=== PATIENT | female | born 1950 | race Asian ===

== ENCOUNTER 2020-03-12 10:19 | Outpatient (REF) | payer MEDICARE, OTHER, SELFPAY ==
[2020-03-12 11:21] LABS: Hematocrit 41.3 % (37-47); Hemoglobin 13.5 g/dl (12.0-16.0); Mean Corpuscular HGB Conc 32.7 g/dl (31.0-35.0); Mean Corpuscular Hemoglobin 29.3 pg (27.0-33.0); Mean Corpuscular Volume 89.8 fL (80-98); Mean Platelet Volume 9.5 fL (9.4-12.3); Platelet Count 406 X10*3/uL (160-400); Red Cell Distribution Width 12.6 % (11.0-16.0); White Blood Count 8.4 X10*3/uL (4.8-10.8)
[2020-03-12 11:37] LABS: Alanine Aminotransferase 9 U/L (0-31); Albumin Level 4.3 g/dL (3.5-5.0); Alkaline Phosphatase 81 U/L (39-117); Anion Gap 12 (12-20); Aspartate Amino Transferase 15 U/L (5-31); Bilirubin Total 0.5 mg/dL (0.0-1.0); Blood Urea Nitrogen 9 mg/dL (9-16); Calcium 9.3 mg/dL (8.4-10.2); Carbon Dioxide 29 mmol/L (22-29); Chloride 104 mmol/L (96-108); Cholesterol 189 mg/dL; Estimated Glomerular Filt Rate > 60; Glucose Fasting 89 mg/dL (60-99); HDL Cholesterol 54 mg/dL; Iron 77 mcg/dL (30-160); LDL Cholesterol Calculated 115 mg/dl; Percent Iron Saturation 24 % (15-50); Potassium 4.5 mmol/l (3.3-5.1); Sodium 140 mmol/L (135-145); Total Iron Binding Capacity 318 mcg/dL (228-428); Total Protein 6.8 g/dL (6.5-8.0); Triglycerides 102 mg/dL; Unsaturated Iron Binding 241 ug/dL
[2020-03-12 11:56] LABS: TSH reflex Free T4 1.95 mIU/mL (0.32-4.0)
== END 2020-03-12 10:20 | disposition home or self-care (01) ==
LOC: HO.HMGCLDS 10:19
PROVIDERS: PCP Internal Medicine; Visit Provider Internal Medicine
DX: E78.5 Hyperlipidemia, unspecified (principal); R53.83 Other fatigue
CPT/HCPCS: 36415; 80053; 80061; 83540; 84443; 85027

== ENCOUNTER 2020-11-05 11:41 | Outpatient (REF) | payer MEDICARE, OTHER, SELFPAY ==
--- NOTE | ~2020-11-05 | MM_ITS ---
EXAMINATION: MM SCREENING DIGITAL BREAST TOMOSYNTHESIS, BILATERAL CLINICAL INFORMATION: Screening. Asymptomatic. Prior outside mammography currently unavailable. Age 70. History left excisional biopsy 1967, benign. The lifetime risk of breast cancer based on the Tyrer-Cuzick Model is 2%. COMPARISON: None. TECHNIQUE: Digital breast tomosynthesis is performed in both the craniocaudal and mediolateral oblique views along with computer-aided detection (CAD). Synthesized 2D images are generated from the tomosynthesis. FINDINGS: There are scattered areas of fibroglandular density (ACR BI-RADS breast composition Category b). There are no significant masses, abnormal calcifications, or other abnormalities. There is a dermal lesion overlying the mid 9:00 left breast. Incidental 3 x 4 mm circumscribed nodule anterior 12:00 left breast has either biopsy clip marker or a benign coarse calcification. The axilla and skin contours are unremarkable. MM/MM tomosynthesis screening BI IMPRESSION: No mammographic evidence of malignancy. ASSESSMENT: BI-RADS 2: Benign RECOMMENDATION: 1. Routine annual mammography screening. 2. Radiology department will attempt to retrieve prior outside mammography to allow for comparison in an addendum report. This patient's information was entered into a reminder system with a target due date for their next mammogram.
== END 2020-11-05 11:42 | disposition home or self-care (01) ==
LOC: HO.MAMMO 11:41
PROVIDERS: PCP Internal Medicine; Visit Provider Internal Medicine
DX: Z12.31 Encounter for screening mammogram for malignant neoplasm of breast (principal)
CPT/HCPCS: 77063; 77067

== ENCOUNTER 2020-11-20 12:55 | Outpatient (REF) | payer MEDICARE, OTHER, SELFPAY ==
--- NOTE | ~2020-11-20 | US_ITS ---
EXAMINATION: US VENOUS ULTRASOUND WITH DOPPLER LOWER EXTREMITY, RIGHT CLINICAL INFORMATION: Pain COMPARISON: None TECHNIQUE: Ultrasound of the deep veins is performed from the hip to the calf with compression sonography and color and pulse Doppler assessment. Spectral analysis with color-flow imaging is performed. FINDINGS: There is normal venous compression and respiratory variation and augmented flow. The visualized common femoral vein, superficial femoral vein, profunda femoral vein, popliteal vein, and the trifurcation region shows no evidence of deep venous thrombosis. There is a 4.4 x 3 x 5.5 cm complex Ramirez's cyst. US/US venous duplex LE RT IMPRESSION: No DVT demonstrated in the right lower extremity. Complex Ramirez's cyst.
== END 2020-11-20 12:56 | disposition home or self-care (01) ==
LOC: HO.HMGCX 12:55
PROVIDERS: PCP Internal Medicine; Visit Provider Nurse Practitioner Family
DX: I82.401 Acute embolism and thrombosis of unspecified deep veins of right lower extremity (principal); M25.561 Pain in right knee
CPT/HCPCS: 93971

== ENCOUNTER 2021-03-21 10:06 | Outpatient (REF) | payer MEDICARE, OTHER, SELFPAY ==
[2021-03-21 11:25] LABS: Hematocrit 40.5 % (37.0-47.0); Mean Corpuscular HGB Conc 32.1 g/dl (31.0-35.0); Mean Corpuscular Hemoglobin 28.7 pg (27.0-33.0); Mean Corpuscular Volume 89.4 fL (80.0-98.0); Mean Platelet Volume 9.3 fL (9.4-12.3); Platelet Count 355 X10*3/uL (160-400); Red Blood Count 4.53 X10*6/uL (4.20-5.50); Red Cell Distribution Width 13.4 % (11.0-16.0); White Blood Count 7.3 X10*3/uL (4.8-10.8)
[2021-03-21 11:56] LABS: Alanine Aminotransferase 12 U/L (0-31); Albumin Level 4.3 g/dL (3.5-5.0); Alkaline Phosphatase 62 U/L (39-117); Anion Gap 13 (12-20); Aspartate Amino Transferase 19 U/L (5-31); Bilirubin Total 0.4 mg/dL (0.0-1.0); Blood Urea Nitrogen 16 mg/dL (9-16); Calcium 9.4 mg/dL (8.4-10.2); Carbon Dioxide 28 mmol/L (22-29); Chloride 104 mmol/L (96-108); Cholesterol 239 mg/dL; Estimated Glomerular Filt Rate > 60; Glucose Fasting 91 mg/dL (60-99); HDL Cholesterol 67 mg/dL; LDL Cholesterol Calculated 157 mg/dl; Potassium 4.3 mmol/L (3.3-5.1); Sodium 141 mmol/L (135-145); Total Protein 6.8 g/dL (6.5-8.0); Triglycerides 79 mg/dL
[2021-03-21 12:08] LABS: TSH reflex Free T4 1.69 uIU/mL (0.32-4.0)
== END 2021-03-21 10:07 | disposition home or self-care (01) ==
LOC: HO.HMGCLDS 10:06
PROVIDERS: PCP Internal Medicine; Visit Provider Internal Medicine
DX: Z00.00 Encounter for general adult medical examination without abnormal findings (principal); E78.5 Hyperlipidemia, unspecified; M48.061 Spinal stenosis, lumbar region without neurogenic claudication
CPT/HCPCS: 36415; 80053; 80061; 84443; 85027

== ENCOUNTER 2022-01-14 11:03 | Outpatient (REF) | payer MEDICARE, OTHER, SELFPAY ==
--- NOTE | ~2022-01-14 | MM_ITS ---
EXAMINATION: MM SCREENING DIGITAL BREAST TOMOSYNTHESIS, BILATERAL CLINICAL INFORMATION: Screening. Asymptomatic. History benign left excisional biopsy, 1966. The lifetime risk of breast cancer based on the Tyrer-Cuzick Model is 2%. COMPARISON: Mammography: 11/05/2020; outside mammography 08/24/2018, 01/24/2016 ([facility], [place], [place]). TECHNIQUE: Digital breast tomosynthesis is performed in both the craniocaudal and mediolateral oblique views along with computer-aided detection (CAD). Synthesized 2D images are generated from the tomosynthesis. FINDINGS: There are scattered areas of fibroglandular density (ACR BI-RADS breast composition Category b). There are no significant masses, abnormal calcifications, or other abnormalities. Parenchymal pattern is similar to prior studies and there is no developing density or architectural abnormality. There are dermal lesions bilateral medial breasts and right mid upper outer breast, marked with dermal markers. The axilla are unremarkable. No significant changes. MM/MM tomosynthesis screening BI IMPRESSION: No mammographic evidence of malignancy. ASSESSMENT: BI-RADS 2: Benign RECOMMENDATION: Routine annual mammography screening. This patient's information was entered into a reminder system with a target due date for their next mammogram.
== END 2022-01-14 11:04 | disposition home or self-care (01) ==
LOC: HO.MAMMO 11:03
PROVIDERS: PCP Internal Medicine; Visit Provider Internal Medicine
DX: Z12.31 Encounter for screening mammogram for malignant neoplasm of breast (principal)
CPT/HCPCS: 77063; 77067

== ENCOUNTER 2022-07-14 16:31 | Outpatient (REF) | payer MEDICARE, OTHER, SELFPAY ==
--- NOTE | ~2022-07-14 | XR_ITS ---
EXAMINATION: CHEST 2 VIEWS CLINICAL INFORMATION: R07.81 - Pleurodynia. COMPARISON: No recent pertinent prior studies are available for comparison. TECHNIQUE: PA and lateral views of the chest obtained. FINDINGS: The lungs are well expanded. Linear scarring or atelectasis seen in the left base. No focal infiltrate, effusion, edema, or pneumothorax. Cardiac and mediastinal silhouettes are within normal limits for technique. Degenerative changes in the spine with cervical spine hardware partially visualized. No acute bony abnormality seen XR/XR chest 2V IMPRESSION: Linear scarring or atelectasis in the left base. No acute process otherwise.
== END 2022-07-14 16:32 | disposition home or self-care (01) ==
LOC: HO.HMGCX 16:31
PROVIDERS: PCP Internal Medicine; Visit Provider Emergency Medicine
DX: R07.81 Pleurodynia (principal)
CPT/HCPCS: 71046

== ENCOUNTER 2022-12-09 15:29 | Outpatient (AMB) | payer MEDICARE, OTHER, SELFPAY ==
--- NOTE | 2022-12-09 16:09 | MHC.OFFWIV ---
Intake Vital Signs 12/09/22 16:10 Weight 120 lb BP 130/80 Blood Pressure Location Lt brachial Position Sitting Pulse 88 Pulse Source Pulse Oximeter Pulse Oximetry (%) 97 Oxygen Delivery Method Room Air Intake Visit Reasons: EP, fatigue, hair loss Intake Note: Patient here because she has been feeling very weak, hair loss for about 2 months. Patient Tobacco Use Status: Former Tobacco user Allergies Sulfa (Sulfonamide Antibiotics) Allergy (Unknown, Verified 12/10/22 06:04) unknown sulfamethoxazole [From Bactrim] Allergy (Unknown, Verified 12/10/22 06:04) unknown trimethoprim [From Bactrim] Allergy (Unknown, Verified 12/10/22 06:04) unknown Medication List - Last Reconciled 12/10/22 by Alan Palacio MD albuterol sulfate 90 mcg/actuation 2 puffs inhalation Q6H PRN benzonatate 100 mg PO BID PRN cefuroxime axetil 250 mg PO BID 7 days codeine-guaifenesin 10-100 mg/5 mL 5 mL PO Q6H PRN cyclobenzaprine 10 mg PO BEDTIME doxycycline hyclate 100 mg PO BID 7 days flu vac 2020 [id number](PF) 60 mcg (15 mcg x 4)/0.5 mL 0.5 mL IM DIRECTED meloxicam (Mobic) 15 mg PO DAILY multivitamin 1 tab PO DAILY nitrofurantoin monohyd/m-cryst 100 mg (Macrobid) 100 mg PO Q12H 3 days pravastatin 20 mg PO DAILY prednisone 40 mg (2 x 20 mg) PO DAILY 5 days Do you need a note to return to daycare/school/sports/work: No HPI EP, fatigue, hair loss HPI Details 72-year-old female presents to the office for a sick visit. Patient has not seen her primary care provider in sometime. She is reporting symptoms of fatigue, hair loss. No change in bowel habits. She has been hypothyroid in the past but has not been taking any medications currently. [facility] Medical History Annual physical exam Fatigue History of mammogram Hyperlipidemia Lumbar spinal stenosis Surgical History H/O colonoscopy S/P cervical spinal fusion Social History Alcohol intake: current Alcohol intake frequency: a few times a week Patient Tobacco Use Status: Former Tobacco user Physical Exam Vital Signs: Last Vital Signs Pulse 88 12/09/22 16:10 BP 130/80 12/09/22 16:10 Pulse Ox 97 12/09/22 16:10 Oxygen Delivery Method Room Air 12/09/22 16:10 Const General: cooperative and healthy appearing Nutritional Appearance: well nourished Orientation/consciousness: patient oriented x3 Limitations: no limitations HEENT Head: Yes normal to inspection Eyes General: appearance normal, both eyes and all related structures Neck Neck: Yes normal visual inspection Chest Chest palpation & inspection: normal palpation of entire chest wall Resp Effort & Inspection: normal respiratory effort Neuro General: patient oriented x3 Assessment & Plan Assessment & Plan (1) Fatigue: Code(s): R53.83 - Other fatigue Plan: Blood work has been ordered to check for thyroid status. Patient was encouraged to make a follow-up appointment with her primary care provider. She needs screening blood work and other tests to. Orders: Orders Basic Metabolic Panel 12/09/22 R53.83 - Other fatigue Thyroid Stimulating Hormone 12/09/22 R53.83 - Other fatigue Complete Blood Count no Diff 12/09/22 R53.83 - Other fatigue Erythrocyte Sedimentation Rate 12/09/22 R53.83 - Other fatigue Lipid Panel 12/09/22 R53.83 - Other fatigue Liver Panel 12/09/22 R53.83 - Other fatigue Coding Level of Care Code Est Pt Level 3 (41030) Diagnoses Fatigue R53.83
[2022-12-09 16:10] VITALS: BP 130/80; PULSE 88; O2SAT 97
== END 2022-12-09 16:41 | disposition home or self-care (01) ==
PROVIDERS: PCP Internal Medicine; Visit Provider Internal Medicine
DX: R53.83 Other fatigue (principal)
CPT/HCPCS: 99213

== ENCOUNTER 2022-12-11 07:39 | Outpatient (REF) | payer MEDICARE, OTHER, SELFPAY ==
[2022-12-11 11:47] LABS: Hematocrit 43.3 % (37.0-47.0); Mean Corpuscular HGB Conc 32.3 g/dl (31.0-35.0); Mean Corpuscular Hemoglobin 28.8 pg (27.0-33.0); Mean Corpuscular Volume 89.1 fL (80.0-98.0); Mean Platelet Volume 9.6 fL (9.4-12.3); Platelet Count 348 X10*3/uL (160-400); Red Blood Count 4.86 X10*6/uL (4.20-5.50); Red Cell Distribution Width 13.4 % (11.0-16.0); White Blood Count 8.5 X10*3/uL (4.8-10.8)
[2022-12-11 12:27] LABS: Erythrocyte Sedimentation Rate 12 MM/HR (0-20)
[2022-12-11 12:30] LABS: Alanine Aminotransferase 9 U/L (0-31); Albumin Level 4.2 g/dL (3.5-5.0); Alkaline Phosphatase 69 U/L (39-117); Anion Gap 8 (12-20); Aspartate Amino Transferase 18 U/L (5-31); Bilirubin Direct 0.2 mg/dL (0.0-0.5); Bilirubin Total 0.7 mg/dL (0.0-1.0); Blood Urea Nitrogen 10 mg/dL (9-16); Calcium 9.6 mg/dL (8.4-10.2); Carbon Dioxide 29 mmol/L (22-29); Chloride 107 mmol/L (96-108); Cholesterol 265 mg/dL (<200); Estimated Glomerular Filt Rate > 60; Glucose Random 93 mg/dL (60-115); HDL Cholesterol 61 mg/dL (>40); LDL Cholesterol Calculated 180 mg/dL (<100); Potassium 4.4 mmol/L (3.3-5.1); Sodium 140 mmol/L (135-145); Total Protein 7.1 g/dL (6.5-8.0); Triglycerides 122 mg/dL (<150)
[2022-12-11 12:32] LABS: Thyroid Stimulating Hormone 2.72 uIU/mL (0.32-4.0)
== END 2022-12-11 07:40 | disposition home or self-care (01) ==
LOC: HO.HMGCLDS 07:39
PROVIDERS: PCP Internal Medicine; Visit Provider Internal Medicine
DX: R53.83 Other fatigue (principal)
CPT/HCPCS: 36415; 80048; 80061; 80076; 84443; 85027; 85652

== ENCOUNTER 2023-01-16 10:34 | Outpatient (REF) | payer MEDICARE, OTHER, SELFPAY ==
--- NOTE | ~2023-01-16 | MM_ITS ---
EXAMINATION: MM SCREENING DIGITAL BREAST TOMOSYNTHESIS, BILATERAL CLINICAL INFORMATION: Screening. Asymptomatic. COMPARISON: Mammography: This study is compared with prior exams dating back to 2018. TECHNIQUE: Digital breast tomosynthesis is performed in both the craniocaudal and mediolateral oblique views along with computer-aided detection (CAD). Synthesized 2D images are generated from the tomosynthesis. FINDINGS: There are scattered areas of fibroglandular density (ACR BI-RADS breast composition Category b). There are no significant masses, abnormal calcifications, or other abnormalities. There is a tissue marker within a small, well-circumscribed, oval nodule in the superior aspect of the left breast. This indicates site of prior benign percutaneous biopsy. MM/MM tomosynthesis screening BI IMPRESSION: No mammographic evidence of malignancy. ASSESSMENT: BI-RADS BI-RADS 2 - Benign Findings RECOMMENDATION: Routine annual mammography screening. 1 year F/U This examination should not preclude the clinical evaluation of a suspicious palpable abnormality. This patient's information was entered into a reminder system with a target due date for their next mammogram.
== END 2023-01-16 10:35 | disposition home or self-care (01) ==
LOC: HO.MAMMO 10:34
PROVIDERS: PCP Internal Medicine; Visit Provider Internal Medicine
DX: Z12.31 Encounter for screening mammogram for malignant neoplasm of breast (principal)
CPT/HCPCS: 77063; 77067

== ENCOUNTER → 2023-01-16 10:45 | Outpatient (BNV) | payer MEDICARE, OTHER, SELFPAY | PROVIDERS: PCP Internal Medicine; Visit Provider Radiology Diagnostic Radiology | DX: Z12.31 Encounter for screening mammogram for malignant neoplasm of breast (principal) | CPT/HCPCS: 77063; 77067 ==

== ENCOUNTER 2023-04-14 11:56 | Outpatient (AMB) | payer MEDICARE, OTHER, SELFPAY ==
[2023-04-14 12:14] VITALS: BP 122/80; PULSE 98; TEMP 36.9; O2SAT 97
--- NOTE | 2023-04-14 12:14 | AM.OFFWIN_ITS ---
Intake Vital Signs 04/14/23 12:14 Height 5 ft BP 122/80 Blood Pressure Location Rt brachial Position Sitting Pulse 98 Pulse Source Pulse Oximeter Temp 98.4 F Temp Source Temporal Artery Scan Pulse Oximetry (%) 97 Oxygen Delivery Method Room Air Intake Visit Reasons: EP LT knee swelling/pain Intake Note: pt is here for c/o left knee swelling and knee pain, denies injury Patient Tobacco Use Status: Former Tobacco user Allergies Sulfa (Sulfonamide Antibiotics) Allergy (Unknown, Verified 04/14/23 12:42) unknown sulfamethoxazole [From Bactrim] Allergy (Unknown, Verified 04/14/23 12:42) unknown trimethoprim [From Bactrim] Allergy (Unknown, Verified 04/14/23 12:42) unknown Medication List - Last Reconciled 04/14/23 by Alan Palacio MD pravastatin 20 mg PO DAILY Do you need a note to return to daycare/school/sports/work: Yes HPI EP LT knee swelling/pain HPI Details 72-year-old female presents to the [facility] for a sick visit. Patient is complaining of pain in the left knee. Symptoms started 3 days ago. Does not recall any fall or injury. Continues to work and recently her right knee was hurting. Denies any symptoms of morning stiffness. [facility] Medical History Annual physical exam Fatigue History of mammogram Hyperlipidemia Lumbar spinal stenosis Surgical History H/O colonoscopy S/P cervical spinal fusion Social History Alcohol intake: current Alcohol intake frequency: a few times a week Patient Tobacco Use Status: Former Tobacco user Physical Exam Vital Signs: Last Vital Signs Temp 98.4 F 04/14/23 12:14 Pulse 98 04/14/23 12:14 BP 122/80 04/14/23 12:14 Pulse Ox 97 04/14/23 12:14 Oxygen Delivery Method Room Air 04/14/23 12:14 Const General: cooperative and healthy appearing Nutritional Appearance: well nourished Orientation/consciousness: patient oriented x3 Limitations: no limitations HEENT Head: Yes normal to inspection Eyes General: appearance normal, both eyes and all related structures Neck Neck: Yes normal visual inspection Chest Chest palpation & inspection: normal palpation of entire chest wall Resp Effort & Inspection: normal respiratory effort Neuro General: patient oriented x3 Extrem Other: Left knee: Minimal joint line tenderness. Pain on flexion. No visible bruising. Assessment & Plan Assessment & Plan (1) Sprain of left knee: Code(s): S83.92XA - Sprain of unspecified site of left knee, initial encounter Plan: X ray images personally revd by me. Meloxicam called in. Brace supplied. Coding Level of Care Code Est Pt Level 4 (41993) Diagnoses Sprain of left knee S83.92XA
== END 2023-04-14 15:00 | disposition home or self-care (01) ==
PROVIDERS: PCP Internal Medicine; Visit Provider Internal Medicine
DX: S83.92XA Sprain of unspecified site of left knee, initial encounter (principal)
CPT/HCPCS: 99214

== ENCOUNTER 2023-04-14 13:04 | Outpatient (REF) | payer MEDICARE, OTHER, SELFPAY ==
--- NOTE | ~2023-04-14 | XR_ITS ---
EXAMINATION: XR KNEE, LEFT CLINICAL INFORMATION: Sprain left knee. COMPARISON: None available. TECHNIQUE: Four views of the left knee. FINDINGS: There is loss of tricompartment joint space with periarticular spurring. There are no loose bodies. No visible acute fracture or dislocation. There is chondrocalcinosis medial and lateral meniscus. There is moderate suprapatellar joint effusion. XR/XR knee LT 4V IMPRESSION: Mild degenerative changes left knee with moderate suprapatellar joint effusion. No acute fracture or loose body seen. Chondrocalcinosis.
== END 2023-04-14 13:05 | disposition home or self-care (01) ==
LOC: HO.HMGCX 13:04
PROVIDERS: Visit Provider Internal Medicine
DX: S83.92XA Sprain of unspecified site of left knee, initial encounter (principal)
CPT/HCPCS: 73564

== ENCOUNTER 2023-05-20 09:44 | Outpatient (AMB) | payer MEDICARE, OTHER, SELFPAY ==
[2023-05-20 09:50] VITALS: BP 124/76; PULSE 102; O2SAT 97; BMI 25.2
--- NOTE | 2023-05-20 09:50 | AM.OFFVISMDC ---
Intake Vital Signs 05/20/23 09:50 Height 5 ft Weight 129 lb BMI 25.2 BP 124/76 Blood Pressure Location Lt brachial Position Sitting Pulse 102 H Pulse Source Pulse Oximeter Pulse Oximetry (%) 97 Oxygen Delivery Method Room Air Intake Visit Reasons: SWV [id number] Allergies Sulfa (Sulfonamide Antibiotics) Allergy (Unknown, Verified 05/20/23 09:59) fever and redness sulfamethoxazole [From Bactrim] Allergy (Unknown, Verified 05/20/23 09:58) unknown trimethoprim [From Bactrim] Allergy (Unknown, Verified 05/20/23 09:58) unknown Medication List - Last Reconciled 05/20/23 by Dona Man MD naproxen sodium 220 mg PO BID PRN pravastatin 20 mg PO DAILY HPI SWV [id number] HPI Details Patient presents for physical. She complains of right knee pain and swelling on and off for the last month. Patient denies any injury. The pain is worse when patient is going down the stairs. She had a similar pain in her left knee a few months ago resolved after taking meloxicam. Initiated the conversation about Advanced Directives. Advanced Directives help? patients prepare for current and future decisions about their medical treatment? and place of care. Discussed with patient that it is a process where a patients? current condition and prognosis are reviewed, their wishes for information? regarding their illness are elicited, and likely medical dilemmas are presented? and options discussed. The form can be amended as needed, reviewed yearly and? make changes as needed IPPE/AWV ? year old presents? for her ? Annual? Wellness Visit, initial visit.? Medical / Social History Reviewed? Past Medical History ?Yes? . ? [place]? of Care / Care Team list updated ?Yes . ? Surgical/Hospitalization? History ?Yes . ? Current Medications? (including OTC and supplements) ?Yes . ? Family History ?Yes? . ? Tobacco? Control form ?Yes . ? AUDIT-C (Alcohol use) form? ?Yes . ? Illicit drug use in Social? History ?Yes . ? Current diagnosis of? depression? ?No ? Appropriate PHQ2/PHQ9? completed ?Yes . ? Data entered by ?Medical? Compliance Clerk and reviewed by provider ? Fall Risk ? Fall? History? Have you had any falls with? injury in the past year? ?No . ? Have you had two or more? falls in the past year? ?No . ? Fall Risk Assessment: ?No? falls in the past year . ? HRA filled out by? the patient, reviewed by Provider and scanned. ? IPPE/AWV ? Balance? [place]? ?Yes . ? Tandem? walk ?Yes . ? Walk and? Turn ?Yes . ? Rise from? sit to stand ?Yes . ?Vision? Corrective? lens ?Yes ? Vision? screen ? Up-to-date, has an appointment [] for vision? screening and glaucoma screening ?Hearing? Whisper? test ?pass .? Initiated the conversation about Advanced Directives. Advanced Directives help? patients prepare for current and future decisions about their medical treatment? and place of care. Discussed with patient that it is a process where a patients? current condition and prognosis are reviewed, their wishes for information? regarding their illness are elicited, and likely medical dilemmas are presented? and options discussed. The form can be amended as needed, reviewed yearly and? make changes as needed Written? Plan?Completed. See Patient? Documents. [facility] Medical History Annual physical exam Fatigue History of mammogram Hyperlipidemia Lumbar spinal stenosis Surgical History H/O colonoscopy S/P cervical spinal fusion Social History Alcohol intake: current Alcohol intake frequency: a few times a week Patient Tobacco Use Status: Former Tobacco user Questionnaire Medicare Wellness Checkup [age] What gender do you identify with?: female During the past 4 weeks, how much have you been bothered by emotional problems such as feeling anxious, depressed, irritable, sad or downhearted, and blue?: slightly During the past 4 weeks, has your physical & emotional health limited your social activities with family, friends, neighbors, or groups?: slightly During the past 4 weeks, how much bodily pain have you generally had?: moderate pain During the past 4 weeks, was someone available to help you if you needed & wanted help?: yes, quite a bit During the past 4 weeks, what was the hardest physical activity you could do for at least 2 minutes?: moderate Can you get to places out of walking distance without help? (For eg., can you travel alone on buses, taxis or drive your car?): Yes Can you go shopping for groceries or clothes without someone's help?: Yes Can you prepare your own meals?: Yes Can you do your housework without help?: Yes Because of any health problems, do you need the help of another person with your personal care needs such as eating, bathing, dressing or getting around the house?: No Can you handle your own money without help?: Yes During the past 4 weeks, how would you rate your health in general?: fair During the past 4 weeks how have things been going for you?: good & bad parts about equal Are you having difficulties driving your car?: no Do you always fasten your seat belt when you are in a car?: yes, usually During past 4 weeks, have you been bothered by the following: never: Falling or dizzy when standing up, Sexual problems?, Trouble eating well?, Teeth or denture problems? and Problems using the telephone? and often: Tiredness or fatigue? Have you fallen 2 or more times in the past year?: No Are you afraid of falling?: Yes Are you a smoker?: no During the past 4 weeks, how many drinks of wine, beer, or other alcoholic beverages did you have?: 1 drink or less per week Do you exercise for about 20 minutes 3 or more times a week?: no, I usually do not exercise this much Have you been given information to help with the following?: yes: Hazards in your house that might hurt you? and yes: Keeping track of your medications? How often do you have trouble taking medicines the way you have been told to take them?: sometimes I take medicine as prescribed How confident are you that you can control & manage most of your health problems?: somewhat confident What is your race?: White Mini Mental State Exam (MMSE) Orientation What is the (year) (season) (date) (day) (month)?: year, season, date, day and month Where are we (state) (county) (town or city) (hospital) (floor)?: state, county, town or city, hospital/clinic and floor Registration Name of 3 unrelated objects clearly and slowly, then ask patient to repeat all 3 of them. (1st repeat determines score. Make sure they can repeat all three): object 1, object 2 and object 3 Attention & Calculation (CHOOSE ONE) Spell WORLD backwards (DLROW): 5 letters Recall Ask patient to repeat the 3 items from question #3.: object 1, object 2 and object 3 Language Show patient a wristwatch & ask what it is. Repeat for pencil.: watch and pencil Ask the patient to repeat the phrase 'No ifs, ands, or buts' after you.: correct Ask the patient to 'take a piece of paper with their right hand' 'fold paper in half' 'place paper on floor': take paper in right hand, fold paper in half and place paper on floor Print the sentence 'CLOSE YOUR EYES' on a piece. If patient actually closes eyes then score.: followed written direction Give patient a blank piece of paper & ask to write a sentence. Score if it contains a noun & verb.: sentence contains subject and verb Score Score: 29 PHQ-9 Over the last 2 weeks, how often have you been bothered by any of the following problems? 1. Little interest or pleasure in doing things: not at all 2. Feeling down, depressed, or hopeless: not at all 3. Trouble falling or staying asleep, or sleeping too much: several days 4. Feeling tired or having little energy: more than half the days 5. Poor appetite or overeating: several days 6. Feeling bad about yourself - or that you are a failure or have let yourself or your family down: not at all 7. Trouble concentrating on things, such as reading the newspaper or watching television: not at all 8. Moving or speaking so slowly that other people could have noticed. Or the opposite - being so fidgety or restless that you have been moving around a lot more than usual: not at all 9. Thoughts that you would be better off or of hurting yourself in some way: not at all Total score: 4 Depression Screening Interpretation: Negative Depression Screening Done: Yes Source: Developed by Drs. Devin Mccoy, Lakisha Buck, Karl Mcgowan and colleagues, with an educational diamante from [employer]. Review of Systems Const All systems reviewed & are unremarkable except as noted in HPI and below Reports no additional complaints Eyes Reports no additional complaints ENT Reports no additional complaints Card Reports no additional complaints Resp Reports no additional complaints GI Reports no additional complaints Reports no additional complaints Physical Exam Vital Signs: Last Vital Signs Pulse 102 H 05/20/23 09:50 BP 124/76 05/20/23 09:50 Pulse Ox 97 05/20/23 09:50 Oxygen Delivery Method Room Air 05/20/23 09:50 BMI result Body Mass Index 25.2 Const General: no acute distress HEENT Head: Yes normal to inspection Ears: hearing grossly normal bilaterally Neck Neck: Yes no lymphadenopathy and Yes supple Resp Effort & Inspection: normal respiratory effort Auscultation: clear to auscultation bilaterally Cardio Rhythm: regular rhythm Heart sounds: S1 normal heart sound present and S2 normal heart sound present GI Inspection: Yes normal to inspection Palpation (GI): Soft to palpation Percussion: Yes normal to percussion Auscultation: normal bowel sounds Extrem Other: slightly decreased range of motion crepitus of her right knee, no soft tissue swelling General: Yes no clubbing, cyanosis or edema Assessment & Plan Assessment & Plan (1) Hyperlipidemia: Code(s): E78.5 - Hyperlipidemia, unspecified Plan: Continue pravastatin check lipid profile (2) Annual physical exam: Code(s): Z00.00 - Encounter for general adult medical examination without abnormal findings Plan: Well-balanced diet regular physical activity discussed with the patient she is up-to-date with mammogram and patient refused colonoscopy and DEXA. Cologuard will be sent (3) Knee pain, right: Code(s): M25.561 - Pain in right knee Plan: Obtain x-ray of right knee and meloxicam prescription sent to the pharmacy. Patient was given home knee exercises and declined physical therapy (4) Vitamin D deficiency: Code(s): E55.9 - Vitamin D deficiency, unspecified Plan: Patient was advised to start taking vitamin-D 1000 units a day and check vitamin-D level Orders: Orders Comprehensive [place]. Panel Fast Today E78.5 - Hyperlipidemia, unspecified, Z00.00 - Encounter for general adult medical examination without abnormal findings TSH reflex Free T4 Today E78.5 - Hyperlipidemia, unspecified, Z00.00 - Encounter for general adult medical examination without abnormal findings Lipid Panel Today E78.5 - Hyperlipidemia, unspecified, Z00.00 - Encounter for general adult medical examination without abnormal findings Triiodothyronine T3 Free Today Z00.00 - Encounter for general adult medical examination without abnormal findings Vitamin D 25-OH Total Today E55.9 - Vitamin D deficiency, unspecified, M25.561 - Pain in right knee Rheumatoid Factor Today M25.561 - Pain in right knee Lyme IgG/IgM w/reflex to WB Today M25.561 - Pain in right knee XR knee RT 2V Today M25.561 - Pain in right knee Referrals Cologuard Test Z12.11 - Encounter for screening for malignant neoplasm of colon, Z12.12 - Encounter for screening for malignant neoplasm of rectum Medications: New meloxicam 15 mg PO DAILY 10 tabs 0RF Quality Reporting (2019) Depression/Bipolar (159/160/161/177) PHQ-9: Total score: 4 Coding Level of Care Code Medicare Subsequent (G0439) Diagnoses Hyperlipidemia E78.5 Annual physical exam Z00.00 Knee pain, right M25.561 Vitamin D deficiency E55.9 CPT Codes Advance Care Planning - Time spent: 1-15 minutes, on File ([id number]) Advance Care Planning Advance Care Planning discussion: Completed/Scanned Forms completed: Health Care Proxy Time spent: 1-15 minutes, on File
== END 2023-05-20 11:24 | disposition home or self-care (01) ==
PROVIDERS: PCP Internal Medicine; Visit Provider Internal Medicine
DX: E78.5 Hyperlipidemia, unspecified (principal); Z00.00 Encounter for general adult medical examination without abnormal findings; M25.561 Pain in right knee; E55.9 Vitamin D deficiency, unspecified
CPT/HCPCS: 1123F; G0439

== ENCOUNTER 2023-05-20 11:02 | Outpatient (REF) | payer MEDICARE, OTHER, SELFPAY ==
--- NOTE | ~2023-05-20 | XR_ITS ---
EXAMINATION: XR KNEE, RIGHT CLINICAL INFORMATION: Right knee pain. COMPARISON: None available. TECHNIQUE: AP and lateral views of the right knee. FINDINGS: No acute fracture or dislocation. Mild medial compartment joint space narrowing. Medial and lateral compartment chondrocalcinosis. Trace joint effusion. No concerning lytic or blastic osseous lesion. XR/XR knee RT 2V IMPRESSION: Mild medial compartment joint space narrowing. Medial and lateral compartment chondrocalcinosis. Trace joint effusion.
== END 2023-05-20 11:03 | disposition home or self-care (01) ==
LOC: HO.HMGCX 11:02
PROVIDERS: PCP Internal Medicine; Visit Provider Internal Medicine
DX: M25.561 Pain in right knee (principal)
CPT/HCPCS: 73560

== ENCOUNTER 2023-05-21 08:55 | Outpatient (REF) | payer MEDICARE, OTHER, SELFPAY ==
[2023-05-21 11:58] LABS: Rheumatoid Factor < 13.0 IU/mL (<15.0)
[2023-05-21 12:18] LABS: Alanine Aminotransferase 10 U/L (0-31); Albumin Level 4.1 g/dL (3.5-5.0); Alkaline Phosphatase 73 U/L (39-117); Anion Gap 11 (12-20); Aspartate Amino Transferase 17 U/L (5-31); Bilirubin Total 0.4 mg/dL (0.0-1.0); Blood Urea Nitrogen 13 mg/dL (9-16); Calcium 9.2 mg/dL (8.4-10.2); Carbon Dioxide 28 mmol/L (22-29); Chloride 107 mmol/L (96-108); Cholesterol 176 mg/dL (<200); Estimated Glomerular Filt Rate > 60; Glucose Fasting 85 mg/dL (60-99); HDL Cholesterol 51 mg/dL (>40); LDL Cholesterol Calculated 104 mg/dL (<100); Potassium 4.2 mmol/L (3.3-5.1); Sodium 142 mmol/L (135-145); Total Protein 6.8 g/dL (6.5-8.0); Triglycerides 105 mg/dL (<150)
[2023-05-21 12:21] LABS: TSH reflex Free T4 1.65 uIU/mL (0.32-4.0); Vitamin D 25-OH Total 18.2 ng/mL (>30)
[2023-05-22 10:54] LABS: Triiodothyronine T3 Free 3.3 pg/mL (2.3-4.2)
[2023-05-22 21:48] LABS: Lyme Abs Screen <0.90 index
== END 2023-05-21 08:56 | disposition home or self-care (01) ==
LOC: HO.HMGCLDS 08:55
PROVIDERS: PCP Internal Medicine; Visit Provider Internal Medicine
DX: Z00.00 Encounter for general adult medical examination without abnormal findings (principal); E78.5 Hyperlipidemia, unspecified; E55.9 Vitamin D deficiency, unspecified; M25.561 Pain in right knee
CPT/HCPCS: 36415; 80053; 80061; 82306; 84443; 84481; 86431; 86617; 86618

== ENCOUNTER 2023-08-03 13:16 | Outpatient (REF) | payer MEDICARE, OTHER, SELFPAY ==
[2023-08-03 18:06] LABS: Vitamin D 25-OH Total 79.1 ng/mL (>30)
== END 2023-08-03 13:17 | disposition home or self-care (01) ==
LOC: HO.HMGCLDS 13:16
PROVIDERS: PCP Internal Medicine; Visit Provider Internal Medicine
DX: E55.9 Vitamin D deficiency, unspecified (principal)
CPT/HCPCS: 36415; 82306

== ENCOUNTER 2023-08-07 09:41 | Outpatient (AMB) | payer MEDICARE, OTHER, SELFPAY ==
[2023-08-07 10:59] VITALS: BP 130/80; PULSE 95; TEMP 36.6; O2SAT 96; BMI 24.6
--- NOTE | 2023-08-07 10:59 | AM.OFFWIN_ITS ---
Intake Vital Signs 3 08/07/23 10:59 Height 5 ft Weight 126 lb BMI 24.6 BP 130/80 Blood Pressure Location Lt brachial Position Sitting Pulse 95 Pulse Source Pulse Oximeter Temp 97.8 F Temp Source Temporal Artery Scan Pulse Oximetry (%) 96 Oxygen Delivery Method Room Air Intake Visit Reasons: EP RT knee pain Intake Note: pt is here today for rt knee pain started 1 week ago Patient Tobacco Use Status: Former Tobacco user Allergies Sulfa (Sulfonamide Antibiotics) Allergy (Unknown, Verified 08/07/23 11:16) fever and redness sulfamethoxazole [From Bactrim] Allergy (Unknown, Verified 08/07/23 11:16) unknown trimethoprim [From Bactrim] Allergy (Unknown, Verified 08/07/23 11:16) unknown Medication List - Last Reconciled 08/07/23 by lEva Flaherty MD naproxen sodium 220 mg PO BID PRN pravastatin 20 mg PO DAILY Do you need a note to return to daycare/school/sports/work: No HPI EP RT knee pain 2 HPI0 Details Patient is a 73-year-old female came in today to be evaluated for right knee pain Which has been happening off and on but lately has been worse She had similar problem in April and had an x-ray Which showed Mild medial compartment joint space narrowing. Medial and lateral compartment chondrocalcinosis. Trace joint effusion. Patient was prescribed meloxicam at that time which did help her Currently she has taking a leave which is not helping I have told her to stop taking a leave, I have sent meloxicam she may take Tylenol with it I have also placed referral for her to be evaluated by Orthopedic On examination range of motion is intact with slight discomfort, there is no swelling no skin changes [facility] Medical History Lumbar spinal stenosis Annual physical exam Fatigue Hyperlipidemia History of mammogram Surgical History H/O colonoscopy S/P cervical spinal fusion Social History Alcohol intake: current Alcohol intake frequency: a few times a week Patient Tobacco Use Status: Former Tobacco user Review of Systems Const All systems reviewed & are unremarkable except as noted in HPI and below Physical Exam Vital Signs: Last Vital Signs Temp 97.8 F 08/07/23 10:59 Pulse 95 08/07/23 10:59 BP 130/80 08/07/23 10:59 Pulse Ox 96 08/07/23 10:59 Oxygen Delivery Method Room Air 08/07/23 10:59 BMI result Body Mass Index 24.6 Const General: no acute distress Orientation/consciousness: patient oriented x3 Eyes General: appearance normal, both eyes and all related structures Resp Effort & Inspection: normal respiratory effort and able to speak in complete sentences Auscultation: clear to auscultation bilaterally Neuro General: patient oriented x3 Extrem Elbow/forearm/wrist images: 2 1. Tender all over, no swelling, range of motion limited due to discomfort Psych Mental Status: mental status grossly normal Assessment & Plan Assessment & Plan (1) Osteoarthritis of right knee: Code(s): M17.11 - Unilateral primary osteoarthritis, right knee Qualifiers: Osteoarthritis type: primary Qualified Code(s): M17.11 - Unilateral primary osteoarthritis, right knee Plan Patient is a 73-year-old female came in today to be evaluated for right knee pain Which has been happening off and on but lately has been worse She had similar problem in April and had an x-ray Which showed Mild medial compartment joint space narrowing. Medial and lateral compartment chondrocalcinosis. Trace joint effusion. Patient was prescribed meloxicam at that time which did help her Currently she has taking a leave which is not helping I have told her to stop taking a leave, I have sent meloxicam she may take Tylenol with it I have also placed referral for her to be evaluated by Orthopedic On examination range of motion is intact with slight discomfort, there is no swelling no skin changes Orders: Referrals 2 Orthopedics Referral M17.11 - Unilateral primary osteoarthritis, right knee Medications: Changed 2 From meloxicam 15 mg PO DAILY 10 tabs 0RF To meloxicam 15 mg PO DAILY 15 days 15 tabs 0RF Coding Level of Care Code Est Pt Level 3 (86644) Diagnoses Primary osteoarthritis of right knee M17.11 Osteoarthritis type: primary
== END 2023-08-07 12:22 | disposition home or self-care (01) ==
PROVIDERS: PCP Internal Medicine; Visit Provider Internal Medicine
DX: M17.11 Unilateral primary osteoarthritis, right knee (principal)
CPT/HCPCS: 99213

== ENCOUNTER 2023-08-31 09:28 | Outpatient (AMB) | payer MEDICARE, OTHER, SELFPAY ==
--- NOTE | 2023-08-31 09:38 | MHC.OFFVIS ---
Vital Signs 08/31/23 09:55 Height 5 ft Weight 126 lb BMI 24.6 Intake Visit Reasons: New Patient - Right Knee Pain Intake Note: Chasity a 73 year old female who presents today as a new patient for an evaluation of right knee pain. Patient reports having intermittent right knee pain for years. No previous tx. She has completed a course of meloxicam which had provided her with some relief. States hx of bakers cysts. Denies numbness or tingling. Allergies Sulfa (Sulfonamide Antibiotics) Allergy (Unknown, Verified 08/31/23 09:52) fever and redness sulfamethoxazole [From Bactrim] Allergy (Unknown, Verified 08/31/23 09:52) unknown trimethoprim [From Bactrim] Allergy (Unknown, Verified 08/31/23 09:52) unknown HPI HPI New Patient - Right Knee Pain: Details: 73-year-old female who presents to the office today for evaluation of right knee pain. She states she has intermittent pain in her bilateral knee that is worse on her right knee. She has not had any treatment in the past. She has completed her course of meloxicam with mild relief. She denies any numbness or tingling. She has a history of wang cysts. [facility] Medical History Lumbar spinal stenosis Annual physical exam Fatigue Hyperlipidemia History of mammogram Surgical History H/O colonoscopy S/P cervical spinal fusion Social History (Updated 08/31/23 @ 09:53 by CHAYITO Carlisle) Alcohol intake: current Alcohol intake frequency: a few times a week Patient Tobacco Use Status: Former Tobacco user Current occupational status: employed Current occupation: [employer] Review of Systems Const All systems reviewed & are unremarkable except as noted in HPI and below Physical Exam Vital Signs: BMI result Body Mass Index 24.6 Const General: cooperative, healthy appearing, comfortable, no acute distress, well developed and alert Orientation/consciousness: patient oriented x3 HEENT Head: Yes normal to inspection, Yes normocephalic and Yes atraumatic Eyes General: appearance normal, both eyes and all related structures Resp Effort & Inspection: normal respiratory effort and able to speak in complete sentences Cardio Rate: regular rate Peripheral pulses: Peripheral pulses 2+ throughout GI Palpation (GI): Soft to palpation Skin Lesions: no lesions Rashes: no rashes Neuro General: patient oriented x3 Extrem Other: Right knee: Skin intact, no erythema or joint effusion. Lateral retropatellar tenderness present. Full ROM with crepitus. Negative Opal?s. No ligamentous laxity. NVI. Results Reviewed Results Reviewed: Xrays were obtained in the office today and personally reviewed by me of the right knee show mild oa Assessment & Plan Assessment & Plan (1) Osteoarthritis of right knee: Code(s): M17.11 - Unilateral primary osteoarthritis, right knee Category: Medical Qualifiers: Osteoarthritis type: primary Qualified Code(s): M17.11 - Unilateral primary osteoarthritis, right knee Plan We discussed options which include PT, NSAIDs and injections. Patient declined formal physical therapy therefore handout of home exercises was given. If symptoms persist, the patient will contact me for an injection, otherwise, PRN. Orders: Orders XR knee RT 1V Today M25.561 - Pain in right knee Medications: Changed From meloxicam 15 mg PO DAILY 15 days 15 tabs 0RF To meloxicam 15 mg PO DAILY 30 tabs 3RF 30 days Patient Instructions: Scribed for Kunal Giron PA-C, by Royce Colon medical associate, on 08/19/2023 at 9:45 AM EST. IKunal PA-C, have personally reviewed and agree with the information entered by the scribe. Coding Level of Care Code New Pt Level 3 (99746) Diagnoses Primary osteoarthritis of right knee M17.11 Osteoarthritis type: primary
[2023-08-31 09:55] VITALS: BMI 24.6
== END 2023-08-31 10:33 | disposition home or self-care (01) ==
PROVIDERS: PCP Internal Medicine; Visit Provider Physician Assistant
DX: M17.11 Unilateral primary osteoarthritis, right knee (principal)
CPT/HCPCS: 99204

== ENCOUNTER 2023-08-31 10:29 | Outpatient (REF) | payer MEDICARE, OTHER, SELFPAY ==
--- NOTE | ~2023-08-31 | XR_ITS ---
EXAMINATION: XR KNEE, RIGHT CLINICAL INFORMATION: Pain in right knee. COMPARISON: 05/20/2023. TECHNIQUE: AP standing view of bilateral knees. [place] view of the right knee. FINDINGS: AP STANDING AND [place] VIEWS OF THE RIGHT KNEE: [id number] narrowing of the medial compartment. Medial and lateral compartment chondrocalcinosis. LEFT KNEE AP STANDING VIEW: Mild narrowing of the medial and lateral compartments with chondrocalcinosis. XR/XR knee LT 2V IMPRESSION: Mild degenerative changes in the bilateral knees.
--- NOTE | ~2023-08-31 | XR_ITS ---
EXAMINATION: XR KNEE, RIGHT CLINICAL INFORMATION: Pain in right knee. COMPARISON: 05/20/2023. TECHNIQUE: AP standing view of bilateral knees. [place] view of the right knee. FINDINGS: AP STANDING AND [place] VIEWS OF THE RIGHT KNEE: [id number] narrowing of the medial compartment. Medial and lateral compartment chondrocalcinosis. LEFT KNEE AP STANDING VIEW: Mild narrowing of the medial and lateral compartments with chondrocalcinosis. XR/XR knee RT 1V IMPRESSION: Mild degenerative changes in the bilateral knees.
== END 2023-08-31 10:30 | disposition home or self-care (01) ==
LOC: HO.HOSX 10:29
PROVIDERS: Visit Provider Physician Assistant
DX: M17.11 Unilateral primary osteoarthritis, right knee (principal); M25.562 Pain in left knee
CPT/HCPCS: 73560; 99202

== ENCOUNTER 2024-01-19 10:03 | Outpatient (REF) | payer MEDICARE, OTHER, SELFPAY ==
--- NOTE | ~2024-01-19 | MM_ITS ---
EXAMINATION: MM SCREENING DIGITAL BREAST TOMOSYNTHESIS, BILATERAL CLINICAL INFORMATION: Screening. Asymptomatic. COMPARISON: Mammography: Comparison is made with available priors TECHNIQUE: Digital breast mammography with tomosynthesis is performed in both the craniocaudal and mediolateral oblique views along with computer-aided detection (CAD). FINDINGS: There are scattered areas of fibroglandular density (ACR BI-RADS breast composition Category b). Postsurgical changes to the left breast are stable. Left marker clip. There are no significant masses, abnormal calcifications, or other abnormalities. MM/MM tomosynthesis screening BI IMPRESSION: No mammographic evidence of malignancy. ASSESSMENT: BI-RADS BI-RADS 2 - Benign Findings RECOMMENDATION: Routine annual mammography screening. 1 year F/U This examination should not preclude the clinical evaluation of a suspicious palpable abnormality. This patient's information was entered into a reminder system with a target due date for their next mammogram. Electronically signed by: Sridevi Conway DO 01/28/2024 07:10 PM EDT
== END 2024-01-19 10:04 | disposition home or self-care (01) ==
LOC: HO.MAMMO 10:03
PROVIDERS: PCP Internal Medicine; Visit Provider Internal Medicine
DX: Z12.31 Encounter for screening mammogram for malignant neoplasm of breast (principal)
CPT/HCPCS: 77063; 77067

== ENCOUNTER → 2024-01-19 10:30 | Outpatient (BNV) | payer MEDICARE, OTHER, SELFPAY | PROVIDERS: PCP Internal Medicine; Visit Provider Internal Medicine | DX: Z12.31 Encounter for screening mammogram for malignant neoplasm of breast (principal) | CPT/HCPCS: 77063; 77067 ==

== ENCOUNTER 2024-03-11 10:16 | Outpatient (AMB) | payer OTHER, SELFPAY ==
[2024-03-11 10:19] VITALS: BP 140/80; PULSE 82; TEMP 36.7; O2SAT 98
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
== END 2024-03-11 12:34 | disposition home or self-care (01) ==
PROVIDERS: PCP Internal Medicine; Visit Provider Physician Assistant
DX: S61.051A Open bite of right thumb without damage to nail, initial encounter (principal); W50.3XXA Accidental bite by another person, initial encounter; Z04.2 Encounter for examination and observation following work accident

== ENCOUNTER → 2024-03-11 10:16 | Outpatient (BNVA) | payer OTHER, MEDICARE, SELFPAY | PROVIDERS: PCP Internal Medicine; Visit Provider Physician Assistant | DX: S61.451A Open bite of right hand, initial encounter (principal); Z23 Encounter for immunization; W50.3XXA Accidental bite by another person, initial encounter; Y93.9 Activity, unspecified; Y92.811 Bus as the place of occurrence of the external cause; Y99.0 Civilian activity done for income or pay | CPT/HCPCS: 90471; 90715; 99212 ==

== ENCOUNTER 2024-03-22 09:48 | Outpatient (AMB) | payer OTHER, SELFPAY ==
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
[2024-03-22 09:56] VITALS: BP 140/90; PULSE 105; TEMP 36.4; O2SAT 98
== END 2024-03-22 10:22 | disposition home or self-care (01) ==
PROVIDERS: PCP Internal Medicine; Visit Provider Physician Assistant
DX: L25.9 Unspecified contact dermatitis, unspecified cause (principal)

== ENCOUNTER → 2024-03-22 09:48 | Outpatient (BNVA) | payer OTHER, SELFPAY | PROVIDERS: PCP Internal Medicine; Visit Provider Physician Assistant | DX: L25.9 Unspecified contact dermatitis, unspecified cause (principal) | CPT/HCPCS: 99212 ==

== ENCOUNTER 2024-04-19 08:58 | Outpatient (AMB) | payer MEDICARE, OTHER, SELFPAY ==
--- NOTE | 2024-04-19 09:22 | AM.OFFWIN_ITS ---
Intake Vital Signs 04/19/24 09:26 Weight 128 lb BP 140/90 H Blood Pressure Location Lt brachial Position Sitting Pulse 107 H Pulse Source Pulse Oximeter Temp 97.8 F Temp Source Oral Pulse Oximetry (%) 95 Oxygen Delivery Method Room Air Intake Visit Reasons: EP-cold symptoms and cough Intake Note: Patient here for cough and runny nose that has been present for about 1 week. Patient Tobacco Use Status: Former Tobacco user Allergies Sulfa (Sulfonamide Antibiotics) Allergy (Unknown, Verified 04/19/24 09:27) fever and redness sulfamethoxazole [From Bactrim] Allergy (Unknown, Verified 04/19/24 09:27) unknown trimethoprim [From Bactrim] Allergy (Unknown, Verified 04/19/24 09:) unknown Do you need a note to return to daycare/school/sports/work: No HPI HPI Comments History of Present Illness Details This is a 74-year-old female with a past medical history of hypothyroidism presenting for evaluation of a dry cough and rhinorrhea that she has had for the past 1 week. Patient states that her cough is worse at night and she has been taking DayQuil and NyQuil with only minimal relief. Patient states she took a test for COVID-19 on April 13 which was negative. She denies having any fevers, chills, sore throat, ear pain, nausea, vomiting or chest pain. 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 Review of Systems Const All systems reviewed & are unremarkable except as noted in HPI and below Denies chills and Denies fatigue Eyes Reports as per HPI and Reports no additional complaints ENT Reports no additional complaints, Reports as per HPI, Denies otalgia, Reports nasal congestion, Reports nasal discharge, Denies sinus pressure and Denies sore throat Card Reports as per HPI, Reports no additional complaints and Denies chest pain Resp Reports as per HPI, Reports no additional complaints, Reports cough, Denies hemoptysis, Denies stridor and Denies wheezing GI Reports as per HPI and Reports no additional complaints Reports no additional complaints and Reports as per HPI Musc Reports no additional complaints Neuro Reports no additional complaints Psych Reports no additional complaints Endo Reports no additional complaints and Denies fatigue Philip/Lymph Reports no additional complaints Aller/Immun Reports no additional complaints and Denies wheezing Physical Exam Vital Signs: Last Vital Signs Temp 97.8 F 04/19/24 09:26 Pulse 107 H 04/19/24 09:26 BP 140/90 H 04/19/24 09:26 Pulse Ox 95 04/19/24 09:26 Oxygen Delivery Method Room Air 04/19/24 09:26 Const General: cooperative, healthy appearing, comfortable, no acute distress, well developed, alert, awake and Physically active; No lethargic Nutritional Appearance: average body habitus Orientation/consciousness: patient oriented x3 and No lethargic Limitations: no limitations HEENT Head: Yes normal to inspection Ears: hearing grossly normal bilaterally, external ears normal, TM's abnormal bilaterally (TMs bulging bilaterally without erythema) and EAC's normal General nose exam: Normal external nose present Face and sinus: Yes normal facial exam and Yes sinuses nontender Mouth: Normal oral and palatal mucosa present and moist mucous membranes Throat: Yes posterior oropharynx normal Eyes General: appearance normal, both eyes and all related structures Neck Lymphatic: no lymphadenopathy noted Resp Effort & Inspection: normal respiratory effort, able to speak in complete sentences, no audible wheezes, Actively coughing, no nasal flaring and no respiratory distress Auscultation: clear to auscultation bilaterally, no crackles, no rales, no rhonchi and no wheezes Cardio Rate: regular rate (88bpm) Rhythm: regular rhythm Skin General skin exam: no rashes or lesions noted Neuro General: patient oriented x3 Psych Appearance: grossly normal Mental Status: mental status grossly normal Insight: Good insight present (Psych) Judgement: Good judgement present (Psych) Assessment & Plan Assessment & Plan (1) Acute upper respiratory infection: Comment: Patient is declining testing for influenza or RSV at this time. Code(s): J06.9 - Acute upper respiratory infection, unspecified Plan: Patricia Watson t.i.d. p.r.n. cough, increase clear fluids daily, follow up with PCP if symptoms persist an additional 7-10 days. Medications: New benzonatate 100 mg PO TID 20 caps 0RF Coding Level of Care Code Est Pt Level 3 (58929) Diagnoses Acute upper respiratory infection J06.9 Time Spent (min) 20
[2024-04-19 09:26] VITALS: BP 140/90; PULSE 107; TEMP 36.6; O2SAT 95
== END 2024-04-19 09:56 | disposition home or self-care (01) ==
PROVIDERS: PCP Internal Medicine; Visit Provider Physician Assistant
DX: J06.9 Acute upper respiratory infection, unspecified (principal)

== ENCOUNTER → 2024-04-19 08:58 | Outpatient (BNVA) | payer MEDICARE, OTHER, SELFPAY | PROVIDERS: PCP Internal Medicine; Visit Provider Physician Assistant | DX: J06.9 Acute upper respiratory infection, unspecified (principal) | CPT/HCPCS: 99212 ==

== ENCOUNTER 2024-06-13 09:40 | Outpatient (AMB) | payer MEDICARE, OTHER, SELFPAY ==
--- NOTE | 2024-06-13 09:59 | A.OFFVIS_ITS ---
Intake Vital Signs 06/13/24 10:00 Height 5 ft Weight 127 lb BMI 24.8 BP 136/80 Blood Pressure Location Lt brachial Position Sitting Pulse 104 H Pulse Source Pulse Oximeter Temp 98.2 F Temp Source Oral Pulse Oximetry (%) 97 Oxygen Delivery Method Room Air Intake Visit Reasons: JUVENTINO G0439 Intake Note: Pt is here today for AWV. Pt states that she has a rash on her R leg. Allergies Sulfa (Sulfonamide Antibiotics) Allergy (Unknown, Verified 06/13/24 10:02) fever and redness sulfamethoxazole [From Bactrim] Allergy (Unknown, Verified 06/13/24 10:02) unknown trimethoprim [From Bactrim] Allergy (Unknown, Verified 06/13/24 10:02) unknown Medication List - Last Reconciled 06/13/24 by Dona Man MD diphenhydramine HCl (Benadryl) 25 mg PO BEDTIME PRN fluocinonide 0.1% 1 appl topical BID ivermectin 9 mg (3 x 3 mg) PO Q2W 2 doses meloxicam 15 mg PO DAILY 30 days pravastatin 20 mg PO DAILY HPI SWV G0439 HPI Details Initiated the conversation about Advanced Directives. Advanced Directives help? patients prepare for current and future decisions about their medical treatment? and place of care. Discussed with patient that it is a process where a patients? current condition and prognosis are reviewed, their wishes for information? regarding their illness are elicited, and likely medical dilemmas are presented? and options discussed. The form can be amended as needed, reviewed yearly and? make changes as needed IPPE/AWV ? year old presents? for her ? Annual? Wellness Visit, initial visit.? Medical / Social History Reviewed? Past Medical History ?Yes? . ? [place]? of Care / Care Team list updated ?Yes . ? Surgical/Hospitalization? History ?Yes . ? Current Medications? (including OTC and supplements) ?Yes . ? Family History ?Yes? . ? Tobacco? Control form ?Yes . ? AUDIT-C (Alcohol use) form? ?Yes . ? Illicit drug use in Social? History ?Yes . ? Current diagnosis of? depression? ?No ? Appropriate PHQ2/PHQ9? completed ?Yes . ? Data entered by ?Medical? Python Architect and reviewed by provider ? Fall Risk ? Fall? History? Have you had any falls with? injury in the past year? ?No . ? Have you had two or more? falls in the past year? ?No . ? Fall Risk Assessment: ?No? falls in the past year . ? HRA filled out by? the patient, reviewed by Provider and scanned. ? IPPE/AWV ? Balance? [place]berg? ?Yes . ? Tandem? walk ?Yes . ? Walk and? Turn ?Yes . ? Rise from? sit to stand ?Yes . ?Vision? Corrective? lens ?Yes ? Vision? screen ? Up-to-date, has an appointment [] for vision? screening and glaucoma screening ?Hearing? Whisper? test ?pass .? Initiated the conversation about Advanced Directives. Advanced Directives help? patients prepare for current and future decisions about their medical treatment? and place of care. Discussed with patient that it is a process where a patients? current condition and prognosis are reviewed, their wishes for information? regarding their illness are elicited, and likely medical dilemmas are presented? and options discussed. The form can be amended as needed, reviewed yearly and? make changes as needed Written? Plan?Completed. See Patient? Documents. [facility] Medical History (Updated 06/13/24 @ 15:09 by Dona Man MD) Lumbar spinal stenosis Annual physical exam Fatigue Hyperlipidemia History of mammogram Surgical History H/O colonoscopy S/P cervical spinal fusion Social History Alcohol intake: current Alcohol intake frequency: a few times a week Patient Tobacco Use Status: Former Tobacco user Current occupational status: employed Current occupation: [employer] Questionnaire Medicare Wellness Checkup [age] What gender do you identify with?: female During the past 4 weeks, how much have you been bothered by emotional problems such as feeling anxious, depressed, irritable, sad or downhearted, and blue?: slightly During the past 4 weeks, has your physical & emotional health limited your social activities with family, friends, neighbors, or groups?: slightly During the past 4 weeks, how much bodily pain have you generally had?: moderate pain During the past 4 weeks, was someone available to help you if you needed & wanted help?: yes, quite a bit During the past 4 weeks, what was the hardest physical activity you could do for at least 2 minutes?: moderate Can you get to places out of walking distance without help? (For eg., can you travel alone on buses, taxis or drive your car?): Yes Can you go shopping for groceries or clothes without someone's help?: Yes Can you prepare your own meals?: Yes Can you do your housework without help?: Yes Because of any health problems, do you need the help of another person with your personal care needs such as eating, bathing, dressing or getting around the house?: No Can you handle your own money without help?: Yes During the past 4 weeks, how would you rate your health in general?: fair During the past 4 weeks how have things been going for you?: good & bad parts about equal Are you having difficulties driving your car?: no Do you always fasten your seat belt when you are in a car?: yes, usually During past 4 weeks, have you been bothered by the following: never: Falling or dizzy when standing up, Sexual problems?, Trouble eating well?, Teeth or denture problems? and Problems using the telephone? and often: Tiredness or fatigue? Have you fallen 2 or more times in the past year?: No Are you afraid of falling?: Yes Are you a smoker?: no During the past 4 weeks, how many drinks of wine, beer, or other alcoholic beverages did you have?: 1 drink or less per week Do you exercise for about 20 minutes 3 or more times a week?: no, I usually do not exercise this much Have you been given information to help with the following?: yes: Hazards in you r house that might hurt you? and yes: Keeping track of your medications? How often do you have trouble taking medicines the way you have been told to take them?: sometimes I take medicine as prescribed How confident are you that you can control & manage most of your health problems?: somewhat confident What is your race?: White Mini Mental State Exam (MMSE) Orientation What is the (year) (season) (date) (day) (month)?: year, season, date, day and month Where are we (state) (county) (town or city) (hospital) (floor)?: state, county, town or city, hospital/clinic and floor Registration Name of 3 unrelated objects clearly and slowly, then ask patient to repeat all 3 of them. (1st repeat determines score. Make sure they can repeat all three): object 1, object 2 and object 3 Attention & Calculation (CHOOSE ONE) Spell WORLD backwards (DLROW): 5 letters Recall Ask patient to repeat the 3 items from question #3.: object 1, object 2 and object 3 Language Show patient a wristwatch & ask what it is. Repeat for pencil.: watch and pencil Ask the patient to repeat the phrase 'No ifs, ands, or buts' after you.: correct Ask the patient to 'take a piece of paper with their right hand' 'fold paper in half' 'place paper on floor': take paper in right hand, fold paper in half and place paper on floor Print the sentence 'CLOSE YOUR EYES' on a piece. If patient actually closes eyes then score.: followed written direction Give patient a blank piece of paper & ask to write a sentence. Score if it contains a noun & verb.: sentence contains subject and verb Score Score: 29 PHQ-9 Over the last 2 weeks, how often have you been bothered by any of the following problems? 1. Little interest or pleasure in doing things: not at all 2. Feeling down, depressed, or hopeless: not at all 3. Trouble falling or staying asleep, or sleeping too much: not at all 4. Feeling tired or having little energy: not at all 5. Poor appetite or overeating: not at all 6. Feeling bad about yourself - or that you are a failure or have let yourself or your family down: not at all 7. Trouble concentrating on things, such as reading the newspaper or watching television: not at all 8. Moving or speaking so slowly that other people could have noticed. Or the opposite - being so fidgety or restless that you have been moving around a lot more than usual: not at all 9. Thoughts that you would be better off or of hurting yourself in some way: not at all Total score: 0 Depression Screening Interpretation: Negative Depression Screening Done: Yes 81714 - PHQ-9 Billing: Yes Source: Developed by Drs. Devin Mccoy, Lakisha Buck, Karl Mcgowan and colleagues, with an educational diamante from [employer]. Review of Systems Const All systems reviewed & are unremarkable except as noted in HPI and below Eyes Reports no additional complaints ENT Reports no additional complaints Card Reports no additional complaints GI Reports no additional complaints Reports no additional complaints Musc Reports no additional complaints Physical Exam Vital Signs: Last Vital Signs Temp 98.2 F 06/13/24 10:00 Pulse 104 H 06/13/24 10:00 BP 136/80 06/13/24 10:00 Pulse Ox 97 06/13/24 10:00 Oxygen Delivery Method Room Air 06/13/24 10:00 BMI result Body Mass Index 24.8 Const General: no acute distress HEENT Head: Yes normal to inspection Ears: hearing grossly normal bilaterally Neck Neck: Yes no lymphadenopathy and Yes supple Resp Effort & Inspection: normal respiratory effort Auscultation: clear to auscultation bilaterally Cardio Rhythm: regular rhythm Heart sounds: S1 normal heart sound present and S2 normal heart sound present GI Inspection: Yes normal to inspection Palpation (GI): Soft to palpation Percussion: Yes normal to percussion Auscultation: normal bowel sounds Extrem Other: There is erythematous rash with multiple excoriation on the right thigh General: Yes no clubbing, cyanosis or edema Assessment & Plan Assessment & Plan (1) Hyperlipidemia: Comment: Patient declined taking statin Code(s): E78.5 - Hyperlipidemia, unspecified Plan: Low-cholesterol diet regular physical activity discussed with the patient check lipid profile (2) Annual physical exam: Code(s): Z00.00 - Encounter for general adult medical examination without abnormal findings Plan: Well-balanced diet regular physical activity discussed with the patient she is up-to-date with the mammogram at [facility] and had negative Cologuard last year (3) Scabies: Comment: right lower extremity recurrent Code(s): B86 - Scabies Plan: Treat with ivermectin, scabies prevention discussed with the patient Orders: Orders Lipid Panel Today E78.5 - Hyperlipidemia, unspecified, Z00.00 - Encounter for general adult medical examination without abnormal findings Comprehensive [place]. Panel Fast Today E78.5 - Hyperlipidemia, unspecified, Z00.00 - Encounter for general adult medical examination without abnormal findings Complete Blood Count Auto Diff Today E78.5 - Hyperlipidemia, unspecified, Z00.00 - Encounter for general adult medical examination without abnormal findings Medications: New ivermectin 9 mg (3 x 3 mg) PO Q2W 9 tabs 0RF 2 doses cholecalciferol (vitamin D3) 50 mcg PO DAILY 90 tabs 1RF Discontinued pravastatin Discontinued Reason: Doctor's Order 20 mg PO DAILY 90 tabs 3RF Quality Reporting (2019) Depression/Bipolar (159/160/161/177) PHQ-9: Total score: 0 Coding Level of Care Code Medicare Subsequent (G0439) Diagnoses Hyperlipidemia E78.5 Annual physical exam Z00.00 Scabies B86 CPT Codes Advance Care Planning - Advance Care Planning discussion: On file, no changes ([id number]) Advance Care Planning - Time spent: 1-15 minutes, on File ([id number]) Additional Codes PHQ-9 - 33795 - PHQ-9 Billing: Yes ([id number]) Advance Care Planning Advance Care Planning discussion: On file, no changes Forms completed: Health Care Proxy Time spent: 1-15 minutes, on File Did not discuss due to Cultural/Spiritual beliefs: Yes
[2024-06-13 10:00] VITALS: BP 136/80; PULSE 104; TEMP 36.8; O2SAT 97; BMI 24.8
== END 2024-06-13 15:10 | disposition home or self-care (01) ==
PROVIDERS: PCP Internal Medicine; Visit Provider Internal Medicine
DX: Z00.00 Encounter for general adult medical examination without abnormal findings (principal); E78.5 Hyperlipidemia, unspecified; B86 Scabies

== ENCOUNTER → 2024-06-13 09:40 | Outpatient (BNVA) | payer MEDICARE, OTHER, SELFPAY | PROVIDERS: PCP Internal Medicine; Visit Provider Internal Medicine | DX: Z00.00 Encounter for general adult medical examination without abnormal findings (principal); E78.5 Hyperlipidemia, unspecified | CPT/HCPCS: 96127 ==

== ENCOUNTER 2024-06-18 07:38 | Outpatient (REF) | payer MEDICARE, OTHER, SELFPAY ==
[2024-06-18 11:46] LABS: MANUAL DIFF FLAG NO
[2024-06-18 11:58] LABS: Basophils Absolute Auto 0.1 X10*3/uL (0.0-0.2); Eosinophils Absolute Auto 0.3 X10*3/uL (0.0-0.4); Eosinophils Percent Auto 3.9 % (0-4); Hematocrit 43.4 % (37.0-47.0); Hemoglobin 13.9 g/dl (12.0-16.0); Imm Gran Abs Auto 0.02 X10*3/uL (0.00-0.03); Imm Gran Pct Auto 0.3 % (0.0-0.4); Lymphocytes Absolute Auto 2.5 X10*3/uL (1.2-4.9); Lymphocytes Percent Auto 34.4 % (20-40); Mean Corpuscular Hemoglobin 28.8 pg (27.0-33.0); Mean Corpuscular Volume 89.9 fL (80.0-98.0); Mean Platelet Volume 9.8 fL (9.4-12.3); Monocytes Absolute Auto 0.5 X10*3/uL (0.1-1.2); Monocytes Percent Auto 7.4 % (2-11); Neutrophils Absolute Auto 3.8 x10*3/uL (2.0-8.3); Platelet Count 351 X10*3/uL (160-400); Red Blood Count 4.83 X10*6/uL (4.20-5.50); Red Cell Distribution Width 13.4 % (11.0-16.0); White Blood Count 7.1 X10*3/uL (4.8-10.8)
[2024-06-18 12:16] LABS: Alanine Aminotransferase 12 U/L (0-31); Albumin Level 4.2 g/dL (3.5-5.0); Anion Gap 13 (12-20); Aspartate Amino Transferase 26 U/L (5-31); Bilirubin Total 0.4 mg/dL (0.0-1.0); Blood Urea Nitrogen 11 mg/dL (9-16); Calcium 9.5 mg/dL (8.4-10.2); Carbon Dioxide 24 mmol/L (22-29); Chloride 108 mmol/L (96-108); Cholesterol 242 mg/dL (<200); Estimated Glomerular Filt Rate > 60; Glucose Fasting 95 mg/dL (60-99); HDL Cholesterol 57 mg/dL (>40); LDL Cholesterol Calculated 166 mg/dL (<100); Potassium 3.7 mmol/L (3.3-5.1); Sodium 141 mmol/L (135-145); Total Protein 7.3 g/dL (6.5-8.0); Triglycerides 96 mg/dL (<150)
[2024-06-18 12:41] LABS: Alkaline Phosphatase 79 U/L (39-117)
== END 2024-06-18 07:39 | disposition home or self-care (01) ==
LOC: HO.HMGCLDS 07:38
PROVIDERS: PCP Internal Medicine; Visit Provider Internal Medicine
DX: Z00.00 Encounter for general adult medical examination without abnormal findings (principal); E78.5 Hyperlipidemia, unspecified
CPT/HCPCS: 36415; 80053; 80061; 85025

== ENCOUNTER 2024-09-14 08:22 | Outpatient (AMB) | payer MEDICARE, OTHER, SELFPAY ==
[2024-09-14 08:57] VITALS: BP 120/70; PULSE 91; TEMP 36.8; O2SAT 96; BMI 24.8
--- NOTE | 2024-09-14 08:57 | AM.OFFWIN_ITS ---
Intake Vital Signs 09/14/24 08:57 Height 5 ft Weight 127 lb BMI 24.8 BP 120/70 Blood Pressure Location Lt brachial Position Sitting Pulse 91 Pulse Source Pulse Oximeter Temp 98.3 F Temp Source Oral Pulse Oximetry (%) 96 Oxygen Delivery Method Room Air Intake Visit Reasons: EP-cough, earache Patient Tobacco Use Status: Former Tobacco user Allergies Sulfa (Sulfonamide Antibiotics) Allergy (Unknown, Verified 09/14/24 08:59) fever and redness sulfamethoxazole [From Bactrim] Allergy (Unknown, Verified 09/14/24 08:59) unknown trimethoprim [From Bactrim] Allergy (Unknown, Verified 09/14/24 08:59) unknown Do you need a note to return to daycare/school/sports/work: Yes HPI HPI Comments History of Present Illness Details History - The patient is a 74-year-old female pr esenting with cold symptoms and persistent cough. - Symptoms commenced three days ago, [place] racterized by ear pressure and a persistent cough, which improves briefly with DayQuil use. - The patient denies sinus pressure, hea daches, fatigue, and fever. - Occasional wheezing is noted, with no history of asthma, COPD, or current smoking, though the patient quit smoking six years ago. - A negative COVID-19 test was conducted at home. - The patient reports being the sole ind ividual with symptoms in her household. - Current symptom management involves Da yQuil, offering temporary relief. Physical Exam General: Cooperative, healthy appearing, comfortable and no acute distress Orientation/consciousness: Patient oriented x3 Limitations: No limitations Head: Normal to inspection Ears: Hearing grossly normal bilaterally, external ears normal and TM's normal bilaterally Nose: Normal external nose present, Normal nares present and No nasal discharge present Face and sinus: Normal facial exam and Yes sinuses nontender Mouth: Normal oral and palatal mucosa present and moist mucous membranes Throat: Yes tonsils normal, Yes uvula midline. Posterior oropharynx erythema Eyes: Appearance normal, both eyes and all related structures Neck: Normal visual inspection Respiratory: Clear to auscultation bilaterally. Normal respiratory effort, able to speak in complete sentences, no respiratory distress, not tachypneic, no tripod positioning and no use of accessory muscles Cardiovascular: Regular rate and rhythm. Normal S1 and S2 Skin: No rashes or lesions noted Neuro: Patient oriented x3 Extremities: Normal to inspection and Yes no clubbing, cyanosis or edema PFSH Medical History Lumbar spinal stenosis Annual physical exam Fatigue Hyperlipidemia History of mammogram Surgical History H/O colonoscopy S/P cervical spinal fusion Social History Alcohol intake: current Alcohol intake frequency: a few times a week Patient Tobacco Use Status: Former Tobacco user Current occupational status: employed Current occupation: [employer] Review of Systems Const All systems reviewed & are unremarkable except as noted in HPI and below Physical Exam Vital Signs: Last Vital Signs Temp 98.3 F 09/14/24 08:57 Pulse 91 09/14/24 08:57 BP 120/70 09/14/24 08:57 Pulse Ox 96 09/14/24 08:57 Oxygen Delivery Method Room Air 09/14/24 08:57 BMI result Body Mass Index 24.8 Assessment & Plan Assessment & Plan (1) Acute upper respiratory infection: Code(s): J06.9 - Acute upper respiratory infection, unspecified Plan: VSS, pt well appearing and PE unremarkable. The patient is advised to continue symptomatic treatment for the viral upper respiratory infection. [id number] medications containing a decongestant and antihistamine, such as Liliana D, are recommended to alleviate symptoms. A cough suppressant will be sent to the pharmacy to aid sleep quality. The patient may use Tylenol or ibuprofen for any additional symptoms like headaches or body aches. 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 No further interventions are planned at this time, given the negative COVID-19 test and the benign nature of the current symptoms. Patient was informed and verbally consented to the use of an ambient scribe for clinic note documentation during this visit Medications: New benzonatate 200 mg PO BEDTIME PRN 10 caps 0RF cough Coding Level of Care Code Est Pt Level 3 (06218) Diagnoses Acute upper respiratory infection J06.9
== END 2024-09-14 09:25 | disposition home or self-care (01) ==
PROVIDERS: PCP Internal Medicine; Visit Provider Physician Assistant
DX: J06.9 Acute upper respiratory infection, unspecified (principal)

== ENCOUNTER → 2024-09-14 08:22 | Outpatient (BNVA) | payer MEDICARE, OTHER, SELFPAY | PROVIDERS: PCP Internal Medicine; Visit Provider Physician Assistant | DX: J06.9 Acute upper respiratory infection, unspecified (principal) | CPT/HCPCS: 99212 ==

== ENCOUNTER 2024-09-17 10:10 | Outpatient (REF) | payer MEDICARE, OTHER, SELFPAY ==
--- NOTE | ~2024-09-17 | XR_ITS ---
CLINICAL HISTORY: R05.9 - Cough, unspecified 2 view chest x-ray Comparison: None Findings: Mild hazy left basilar atelectasis/infiltrate. Borderline cardiomegaly. Partially visualized lower cervical spine hardware. IMPRESSION: Mild hazy left basilar atelectasis/infiltrate. Borderline cardiomegaly. This document has been electronically signed by: Elo Benavidez MD on 09/17/2024 11:01:51
== END 2024-09-17 10:11 | disposition home or self-care (01) ==
LOC: HO.HMGCX 10:10
PROVIDERS: PCP Internal Medicine; Visit Provider Nurse Practitioner Family
DX: R05.1 Acute cough (principal); R06.2 Wheezing
CPT/HCPCS: 71046; 99212

== ENCOUNTER 2024-09-17 10:10 | Outpatient (AMB) | payer MEDICARE, OTHER, SELFPAY ==
[2024-09-17 10:12] VITALS: BP 148/80; PULSE 96; RESP 16; TEMP 36.7; O2SAT 98; BMI 24.6
--- NOTE | 2024-09-17 10:12 | MHC.OFFWIV ---
Intake Vital Signs 09/17/24 10:12 Height 5 ft Weight 126 lb BMI 24.6 BP 148/80 H Blood Pressure Location Lt brachial Position Sitting Respiration 16 Pulse 96 Pulse Source Pulse Oximeter Temp 98.0 F Temp Source Oral Pulse Oximetry (%) 98 Oxygen Delivery Method Room Air Intake Visit Reasons: EP chest cold, coughing Intake Note: Pt is here today c/o chest cold and coughing x1.5weeks: pt was seen here at our walkin for same sx's x4days ago Patient Tobacco Use Status: Former Tobacco user Allergies Sulfa (Sulfonamide Antibiotics) Allergy (Unknown, Verified 09/17/24 10:27) fever and redness sulfamethoxazole [From Bactrim] Allergy (Unknown, Verified 09/17/24 10:27) unknown trimethoprim [From Bactrim] Allergy (Unknown, Verified 09/17/24 10:27) unknown Medication List - Last Reconciled 09/17/24 by Mendy Goldberg, SCAR-BC benzonatate 200 mg PO BEDTIME PRN cholecalciferol (vitamin D3) 50 mcg PO DAILY meloxicam 15 mg PO DAILY 30 days HPI HPI Comments History of Present Illness Details History - The patient is a 74-year-old female presenting with a cough. - Seen previously for similar cough symptoms 09/14/24 here (note reviewed) and prescribed Tessalon Perles without improvement. - Reports new onset of wheezing & worsening cough. - Denies fever, chills, chest pain, hemoptysis, asthma. Physical Exam General: Awake, alert. No apparent distress Eyes: Sclera and conjunctiva clear bilaterally Nose: Nares patent, turbinates within normal limits, no sinus tenderness with palpation bilaterally Ears: Tympanic membranes intact and clear bilaterally Throat: Moist mucosa membrane, pharynx within normal limits Cardiovascular: Regular rate and rhythm Respiratory: paroxysmal cough, exp wheezes BUL heard anteriorly only Results CXR ordered, results pending Discussion Notes During the visit, we discussed the likely possibility of a respiratory infection given the persistence & worsening of the cough and wheezing. A chest x-ray is recommended to rule out pneumonia, given the significant wheezing noted. I explained to the patient the potential benefits of steroids for reducing inflammation in the airways and the administration of an inhaler to alleviate wheezing. Prednisone was suggested but not started at the clinic due to the patient having an empty stomach. An antibiotic was considered to . Alternatives, including the use of meloxicam, were discussed with caution due to potential interactions. The patient was agreeable to undergo an x-ray and expressed understanding of the importance of follow-up in 30 days if pneumonia is confirmed. The plan is to provide the patient with result updates via the patient portal. Assessment and Plan 1. Chronic Cough - Prescribe prednisone with food to reduce inflammation. - Dispense an inhaler to relieve wheezing. - Administer antibiotic Zpak - Schedule 30-day follow-up x-ray if pneumonia is diagnosed. 2. Wheezing - Utilize inhaler for relief. - Assess response to steroids. Patient Instructions - Use the inhaler as needed to help with wheezing. - Take prescribed prednisone with food to avoid stomach upset. - Start antibiotics if directed by results shared through the patient portal. - Go to the x-ray department today and await further instructions on treatment. - Follow up in 30 days if pneumonia is confirmed by today?s results. - Check the patient portal by the end of the day for test results. Consent Patient was informed and verbally consented to the use of an ambient scribe for clinic note documentation during this visit. Total time spent caring for the patient today was 30 minutes. This includes time spent before the visit reviewing the chart, time spent during the visit, and time spent after the visit on documentation, reviewing laboratory results, diagnostic imaging, medications, performing a medically necessary evaluation, counseling on diagnoses, care coordination, ordering appropriate tests, ordering appropriate medications, review of tests performed by other providers, reporting test results with the patient, communication with other healthcare providers. [facility] Medical History Lumbar spinal stenosis Annual physical exam Fatigue Hyperlipidemia History of mammogram Surgical History H/O colonoscopy S/P cervical spinal fusion Social History Alcohol intake: current Alcohol intake frequency: a few times a week Patient Tobacco Use Status: Former Tobacco user Current occupational status: employed Current occupation: [employer] Physical Exam Vital Signs: Last Vital Signs Temp 98.0 F 09/17/24 10:12 Pulse 96 09/17/24 10:12 Resp 16 09/17/24 10:12 BP 148/80 H 09/17/24 10:12 Pulse Ox 98 09/17/24 10:12 Oxygen Delivery Method Room Air 09/17/24 10:12 BMI result Body Mass Index 24.6 Assessment & Plan Assessment & Plan (1) Cough: Code(s): R05.9 - Cough, unspecified Qualifiers: Cough type: acute Qualified Code(s): R05.1 - Acute cough (2) Wheezing: Code(s): R06.2 - Wheezing Plan . Orders: Orders XR chest 2V Today R05.9 - Cough, unspecified, R06.2 - Wheezing Medications: New albuterol sulfate 90 mcg/actuation 2 puffs inhalation Q4-6H 30 days PRN 8.5 grams 0RF shortness of breath or wheezing azithromycin For 250 mg dose pack: take 500 mg today (day 1), then 250 mg for 4 days (days 2-5) PO 5 days 6 tabs 0RF prednisone 20 mg PO DAILY 5 tabs 0RF Coding Level of Care Code Est Pt Level 4 (10470) Diagnoses Acute cough R05.1 Cough type: acute Wheezing R06.2
== END 2024-09-17 10:36 | disposition home or self-care (01) ==
PROVIDERS: PCP Internal Medicine; Visit Provider Nurse Practitioner Family
DX: R05.1 Acute cough (principal); R06.2 Wheezing

== ENCOUNTER 2024-09-26 09:06 | Outpatient (AMB) | payer MEDICARE, OTHER, SELFPAY ==
[2024-09-26 09:16] VITALS: BP 140/70; PULSE 102; RESP 16; TEMP 36.9; O2SAT 95; BMI 24.2
--- NOTE | 2024-09-26 09:16 | AM.OFFWIN_ITS ---
Intake Vital Signs 09/26/24 09:16 Height 5 ft Weight 124 lb BMI 24.2 BP 140/70 H Blood Pressure Location Lt brachial Position Sitting Respiration 16 Pulse 102 H Pulse Source Pulse Oximeter Temp 98.4 F Temp Source Oral Pulse Oximetry (%) 95 Oxygen Delivery Method Room Air Intake Visit Reasons: EP nausea, diarrhea, vomiting Intake Note: Pt is here today c/o N,V,D lower back due to doing house work: also bloody stool 3 episodes yesterday Patient Tobacco Use Status: Former Tobacco user Allergies Sulfa (Sulfonamide Antibiotics) Allergy (Unknown, Verified 09/26/24 09:17) fever and redness sulfamethoxazole [From Bactrim] Allergy (Unknown, Verified 09/26/24 09:17) unknown trimethoprim [From Bactrim] Allergy (Unknown, Verified 09/26/24 09:17) unknown HPI HPI Comments History of Present Illness Details 74 y/o Female patient who [facility] with c/o Abdominal pain associated with Nausea, vomiting and Diarrhea since Yesterday. C/o Rectal bleeding with every Bowel Movement. Reports one episode of Nausea and vomiting this morning. Denies fevers or chills. [facility] Medical History (Updated 09/26/24 @ 09:53 by Domonique Harrison NP) Rectal bleeding Nausea vomiting and diarrhea Lumbar spinal stenosis Annual physical exam Fatigue Hyperlipidemia History of mammogram Surgical History H/O colonoscopy S/P cervical spinal fusion Social History Alcohol intake: current Alcohol intake frequency: a few times a week Patient Tobacco Use Status: Former Tobacco user Current occupational status: employed Current occupation: [employer] Review of Systems Const All systems reviewed & are unremarkable except as noted in HPI and below Physical Exam Vital Signs: Last Vital Signs Temp 98.4 F 09/26/24 09:16 Pulse 102 H 09/26/24 09:16 Resp 16 09/26/24 09:16 BP 140/70 H 09/26/24 09:16 Pulse Ox 95 09/26/24 09:16 Oxygen Delivery Method Room Air 09/26/24 09:16 BMI result Body Mass Index 24.2 Const General: no acute distress Nutritional Appearance: overweight Orientation/consciousness: patient oriented x3 Cardio Heart sounds: S1 normal heart sound present and S2 normal heart sound present GI Inspection: Yes obesity Palpation (GI): Soft to palpation, not firm, nontender, no guarding, not rigid and No hepatosplenomegaly present Auscultation: Hypoactive bowel sounds present Rectal Exam - Female: visual inspection normal, normal sphincter tone, Internal hemorrhoid(s) present (One small Internal Hemorrhoid), No Rectal prolapse, No fecal impaction, No Fistula present (GI) and No tenderness General: Yes no CVA tenderness Back/Spine/Pelvis Back: no CVA tenderness Neuro General: patient oriented x3, gait normal and moves all extremities Psych Speech and movement: Normal speech and movement present Assessment & Plan Assessment & Plan (1) Nausea vomiting and diarrhea: Code(s): R11.2 - Nausea with vomiting, unspecified; R19.7 - Diarrhea, unspecified Plan: BLAND Diet; Avoid Spicy oily foods Increased fluid intake Imodium OTC (2) Rectal bleeding: Code(s): K62.5 - Hemorrhage of anus and rectum Plan: Hydrocortisone Cream to relieve skin irritation Medications: New hydrocortisone 2.5% 1 appl topical BID PRN 30 grams 0RF Rectal bleeding 7 days K62.5 - Hemorrhage of anus and rectum metoclopramide HCl (Reglan) 5 mg PO Q6H 28 tabs 0RF 7 days R11.2 - Nausea with vomiting, unspecified, R19.7 - Diarrhea, unspecified Coding Level of Care Code Est Pt Level 4 (13637) Diagnoses Nausea vomiting and diarrhea R11.2; R19.7 Rectal bleeding K62.5 Time Spent (min) 20
== END 2024-09-26 09:58 | disposition home or self-care (01) ==
PROVIDERS: PCP Internal Medicine; Visit Provider Nurse Practitioner Family
DX: R11.2 Nausea with vomiting, unspecified (principal); R19.7 Diarrhea, unspecified; K62.5 Hemorrhage of anus and rectum

== ENCOUNTER → 2024-09-26 09:06 | Outpatient (BNVA) | payer MEDICARE, OTHER, SELFPAY | PROVIDERS: PCP Internal Medicine; Visit Provider Nurse Practitioner Family | DX: R11.2 Nausea with vomiting, unspecified (principal); R19.7 Diarrhea, unspecified; K62.5 Hemorrhage of anus and rectum | CPT/HCPCS: 99212 ==

== ENCOUNTER 2024-10-04 12:34 | Outpatient (REF) | payer MEDICARE, OTHER, SELFPAY ==
[2024-10-04 16:18] LABS: MANUAL DIFF FLAG NO
[2024-10-04 16:27] LABS: Basophils Absolute Auto 0.1 X10*3/uL (0.0-0.2); Basophils Percent Auto 0.9 % (0-2); Eosinophils Absolute Auto 0.4 X10*3/uL (0.0-0.4); Eosinophils Percent Auto 4.1 % (0-4); Hematocrit 39.1 % (37.0-47.0); Hemoglobin 12.9 g/dl (12.0-16.0); Imm Gran Abs Auto 0.02 X10*3/uL (0.00-0.03); Imm Gran Pct Auto 0.2 % (0.0-0.4); Lymphocytes Absolute Auto 2.1 X10*3/uL (1.2-4.9); Lymphocytes Percent Auto 24.7 % (20-40); Mean Corpuscular Hemoglobin 29.5 pg (27.0-33.0); Mean Corpuscular Volume 89.3 fL (80.0-98.0); Mean Platelet Volume 9.7 fL (9.4-12.3); Monocytes Absolute Auto 0.8 X10*3/uL (0.1-1.2); Monocytes Percent Auto 9.3 % (2-11); Neutrophils Absolute Auto 5.2 x10*3/uL (2.0-8.3); Neutrophils Percent Auto 60.8 % (45-73); Platelet Count 406 X10*3/uL (160-400); Red Blood Count 4.38 X10*6/uL (4.20-5.50); Red Cell Distribution Width 13.4 % (11.0-16.0); White Blood Count 8.6 X10*3/uL (4.8-10.8)
[2024-10-04 16:45] LABS: Alanine Aminotransferase 9 U/L (0-31); Albumin Level 4.1 g/dL (3.5-5.0); Alkaline Phosphatase 73 U/L (39-117); Anion Gap 10 (12-20); Aspartate Amino Transferase 19 U/L (5-31); Bilirubin Total 0.3 mg/dL (0.0-1.0); Blood Urea Nitrogen 10 mg/dL (9-16); Calcium 9.5 mg/dL (8.4-10.2); Carbon Dioxide 29 mmol/L (22-29); Chloride 107 mmol/L (96-108); Estimated Glomerular Filt Rate > 60; Glucose Random 78 mg/dL (60-115); Iron 71 mcg/dL (30-160); Percent Iron Saturation 29 % (15-50); Potassium 4.1 mmol/L (3.3-5.1); Sodium 142 mmol/L (135-145); Total Iron Binding Capacity 245 mcg/dL (228-428); Total Protein 6.6 g/dL (6.5-8.0); Unsaturated Iron Binding 174 ug/dL
== END 2024-10-04 12:35 | disposition home or self-care (01) ==
LOC: HO.HMGCLDS 12:34
PROVIDERS: PCP Internal Medicine; Visit Provider Internal Medicine
DX: K62.5 Hemorrhage of anus and rectum (principal)
CPT/HCPCS: 36415; 80053; 83540; 85025

== ENCOUNTER 2024-10-05 09:30 | Outpatient (AMB) | payer MEDICARE, OTHER, SELFPAY ==
[2024-10-05 09:33] VITALS: BP 128/70; PULSE 92; RESP 18; TEMP 36.5; O2SAT 96; BMI 24.0
--- NOTE | 2024-10-05 09:33 | MHC.PC.OV ---
Vital Signs 10/05/24 09:33 Height 5 ft Weight 123 lb BMI 24.0 BP 128/70 Blood Pressure Location Lt brachial Position Sitting Respiration 18 Pulse 92 Pulse Source Pulse Oximeter Temp 97.7 F Temp Source Oral Pulse Oximetry (%) 96 Oxygen Delivery Method Room Air Intake Visit Reasons: Follow up after walk in Intake Note: Pt is here today for a follow up visit after being seen in a walk in. Allergies Sulfa (Sulfonamide Antibiotics) Allergy (Unknown, Verified 10/05/24 09:33) fever and redness sulfamethoxazole (From Bactrim) Allergy (Unknown, Verified 10/05/24 09:33) unknown trimethoprim (From Bactrim) Allergy (Unknown, Verified 10/05/24 09:33) unknown Medication List - Last Reconciled 10/05/24 by Dona Man MD albuterol sulfate 90 mcg/actuation 2 puffs inhalation Q4-6H PRN 30 days benzonatate 100 mg PO BID cholecalciferol (vitamin D3) 50 mcg PO DAILY hydrocortisone 2.5% 1 appl topical BID PRN 7 days Tobacco use date assessed: 10/05/24 Fall risk assessment: No Falls in past year Last assessed Fall Risk: 10/05/24 Dental Screening Dental Screen Date: 10/05/24 Did you have a dental visit in the last 12 months?: Yes Did you have a dental problem in the last 6 months where you did not have access to dental care?: No Was dental information given to patient?: Patient has dentist HPI Follow up after walk in HPI Details Patient presents for follow-for walk-in visit for respiratory infection. Patient was treated for presumed pneumonia with Z-Tay and prednisone. The cough improved significantly. Patient developed diarrhea while taking antibiotic and had some bright red blood per rectum for 3 days. Patient denies any recurrent GI bleeding nausea vomiting diarrhea fever chills or night sweats. [facility] Medical History (Updated 10/05/24 @ 10:03 by Dona Man MD) Colon cancer screening Nausea vomiting and diarrhea Lumbar spinal stenosis Annual physical exam Fatigue Hyperlipidemia History of mammogram Surgical History H/O colonoscopy S/P cervical spinal fusion Social History Housing: House Alcohol intake: current Alcohol intake frequency: a few times a week Patient Tobacco Use Status: Former Tobacco user e-Cigarette/Vaping Use: Never Used Second Hand Smoke Exposure: No service: No Current occupational status: employed Current occupation: [email or web address] Current occupational exposures/hazards: No Cognitive needs: No Hearing needs: No Vision needs: Yes Questionnaire Thrive Questionnaire Date Thrive assessed: 10/05/24 I am a: Patient What is your living situation today?: I have a steady place to live Within the past 12 months, did the food you bought not last and you didn't have the money to get more?: Never true Within the past 12 months, did you worry whether your food would run out before you got money to buy more?: Never true Do you have trouble paying for medicines?: No Do you have trouble getting transportation to medical appointments?: No Do you have trouble paying your heating and electricity bill?: No Do you have trouble taking care of your child, family member or friend?: No Do you have trouble with day-to-day activities such as bathing, preparing meals, shopping, managing finances, etc.?: No Are you currently unemployed and looking for a job?: No Are you interested in more education?: Yes Please select the resources that you would like help with: Education Currently or been in a relationship where the following occur: No concerns reported THRIVE Score: 0 AUDIT C Alcohol Use Questionnaire (AUDIT-C) 1. How often do you have a drink containing alcohol?: Monthly or less 2. How many drinks containing alcohol do you have on a typical day when you are drinking?: 1 or 2 3. How often do you have six or more drinks on one occasion?: Never Total Score: 1 DIETER-7 AMB Questionnaire DIETER-7 Date DIETER - 7 assessed: 10/05/24 Feeling nervous, anxious, or on edge: 0 = Not at all Not being able to stop or control worryin = Not at all Worrying too much about different things: 0 = Not at all Trouble relaxin = Not at all Being so restless that it is hard to sit still: 0 = Not at all Becoming easily annoyed or irritable: 0 = Not at all Feeling afraid as if something awful might happen: 0 = Not at all Total DIETER-7 score (0-4 normal; 5-9 mild; 10-14 moderate; 15-21 severe): 0 Source: Developed by Drs. Devin Mccoy, Lakisha Buck, Karl Mcgowan and colleagues, with an educational diamante from [employer]. DIETER-7 Assessment Billing DIETER-7 Assessment Tool: DIETER-7 Assessment 99210 Review of Systems Const All systems reviewed & are unremarkable except as noted in HPI and below Eyes Reports no additional complaints ENT Reports no additional complaints Card Reports no additional complaints Resp Reports no additional complaints GI Reports no additional complaints Reports no additional complaints Physical exam (Primary Care) Vital Signs: Last Vital Signs Temp 97.7 F 10/05/24 09:33 Pulse 92 10/05/24 09:33 Resp 18 10/05/24 09:33 BP 128/70 10/05/24 09:33 Pulse Ox 96 10/05/24 09:33 Oxygen Delivery Method Room Air 10/05/24 09:33 BMI result Body Mass Index 24.0 Tobacco/Smoking Status: Tobacco use Status Tobacco use date assessed 10/05/24 10/05/24 09:40 Patient Tobacco Use Status Former Tobacco user 10/05/24 09:40 e-Cigarette/Vaping Use Never Used 10/05/24 09:40 Thrive Assessment: Date of Thrive Assessment Date Thrive assessed 10/05/24 10/05/24 09:40 Currently or been in a relationship where the following occur: No concerns reported Const General: no acute distress HENMT Head: Yes normal to inspection Throat: Yes posterior oropharynx normal Neck Neck: Yes supple Resp Effort & Inspection: normal respiratory effort Auscultation: clear to auscultation bilaterally Cardio Rhythm: regular rhythm Heart sounds: S1 normal heart sound present and S2 normal heart sound present GI Inspection: Yes normal to inspection Palpation (GI): Soft to palpation Percussion: Yes normal to percussion Auscultation: normal bowel sounds Coding Level of Care Code Est Pt Level 3 (20899) Diagnoses Acute cough R05.1 Cough type: acute Nausea vomiting and diarrhea R11.2; R19.7 Additional Codes DIETER-7 Assessment Billing - DIETER-7 Assessment Tool: DIETER-7 Assessment 66575 ([id number]) Assessment & Plan Assessment & Plan (1) Cough: Code(s): R05.9 - Cough, unspecified Category: Medical Qualifiers: Cough type: acute Qualified Code(s): R05.1 - Acute cough Plan: Repeat chest x-ray (2) Nausea vomiting and diarrhea: Code(s): R11.2 - Nausea with vomiting, unspecified; R19.7 - Diarrhea, unspecified Category: Medical Plan: Resolved, patient was advised to take probiotics. If she develop any recurrent GI bleed she will be referred to GI Orders: Orders XR chest 2V Today R05.1 - Acute cough Medications: Discontinued metoclopramide HCl (Reglan) Discontinued Reason: Doctor's Order 5 mg PO Q6H 7 days 28 tabs 0RF R11.2 - Nausea with vomiting, unspecified, R19.7 - Diarrhea, unspecified
== END 2024-10-05 10:10 | disposition home or self-care (01) ==
LOC: HO.HMCC 09:31
PROVIDERS: PCP Internal Medicine; Visit Provider Internal Medicine
DX: R05.1 Acute cough (principal); R11.2 Nausea with vomiting, unspecified; R19.7 Diarrhea, unspecified

== ENCOUNTER 2024-10-05 09:55 | Outpatient (REF) | payer MEDICARE, OTHER, SELFPAY ==
--- NOTE | ~2024-10-05 | XR_ITS ---
EXAMINATION: XR CHEST CLINICAL INFORMATION: R05.1 - Acute cough COMPARISON: 09/17/2024, 07/14/2022. TECHNIQUE: 2 views of the chest were obtained. FINDINGS: The cardiac, hilar, and mediastinal contours are normal. Aortic mural calcifications. Lungs are mildly hyperaerated, with mild linear type atelectasis in both lung bases. Lungs otherwise clear. There is no pneumothorax or pleural effusion. There is no focal osseous or soft tissue abnormality. Partially imaged cervical fusion hardware. Degenerative changes and scoliosis involving the spine. XR/XR chest 2V IMPRESSION: 1. Findings suggestive of COPD. Linear type atelectasis or scarring in both lung bases. Otherwise, no active pulmonary disease. Electronically signed by: Man Lara MD 10/05/2024 10:10 AM EDT
== END 2024-10-05 09:56 | disposition home or self-care (01) ==
LOC: HO.HMGCX 09:55
PROVIDERS: PCP Internal Medicine; Visit Provider Internal Medicine
DX: R05.1 Acute cough (principal); R11.2 Nausea with vomiting, unspecified; R19.7 Diarrhea, unspecified; Z13.30 Encounter for screening examination for mental health and behavioral disorders, unspecified
CPT/HCPCS: 71046; 96127; 99212

== ENCOUNTER → 2024-10-05 09:58 | Outpatient (BNV) | payer MEDICARE, OTHER, SELFPAY | PROVIDERS: PCP Internal Medicine; Visit Provider Radiology Diagnostic Radiology | DX: R05.1 Acute cough (principal) | CPT/HCPCS: 71046 ==

== ENCOUNTER 2024-12-15 11:36 | Outpatient (AMB) | payer MEDICARE, OTHER, SELFPAY ==
--- OUTSIDE RECORDS SUMMARY | 2024-12-15 09:15 | XMS_ITS | Encounter Summary ---
Author Organization [facility] Address [address] [place] [address] Care Team Providers Care Life Coach Name Role Phone Dona Man MD Primary Care Provider [phone] Reason for Visit * Reason Comments Lung Nodule * Consultation (Urgent) - Authorized Specialty Diagnoses / Procedures Referred By Contcarine navarrete Referred To Contact Thoracic Surgery Diagnoses Lung nodule Yamila Villareal NP [address] [address] Phone: tel: fax: Jacquelyn Goldstein MD [address] [address] Phone: tel: fax: Referral ID Status Reason Start Date Expiration Date Visits Requested Visits Authorized [id number] Authorized Specialty Services Required 12/05/2024 12/05/2025 1 1 Encounter Details Date Type Department Care Team (Late st Contact Info) Description 12/15/2024 9:15 AM EDT Consult Thoracic Surgery - [place] [address] [phone] Jacquelyn Goldstein MD [address] [place] [phone] Pulmonary nodule (Primary Dx); Lung nodule; Smoker; Neoplasm Social History Tobacco Use Types Packs/Day Years Used Date Smoking Tobacco: Former Cigarettes 1 52 1 964 - 2016 Tobacco Cessation:Counseling Given: Not Answered Alcohol Use Standard Drinks/Week Comments Yes 0 (1 standard drink = 0.6 oz pur e alcohol) Comments Unknown Sex and Gender Information Value Date Recorded Sex Assigned at Female 11/23/2024 8:51 PM EDT Legal Sex Female 12:43 AM EST Gender Identity Not on file Sexual Orientation Not on file documented as of this encounter Last Filed Vital Signs Vital Sign Reading Time Taken Comments Blood Pressure 171/89 12/15/2024 10:13 AM EDT Pulse 100 12/15/2024 9:18 AM EDT Temperature 36.9 C (98.4 F) 12/15/2024 9:18 AM EDT Respiratory Rate 18 12/15/2024 9:18 AM EDT Oxygen Saturation 96% 12/15/2024 9:18 AM EDT Inhaled Oxygen Concentration - - Weight 57.3 kg (126 lb 6.4 oz) 12/15/2024 9:18 A M EDT Height 152.4 cm (5') 12/15/2024 9:18 AM EDT Body Mass Index 24.69 12/15/2024 9:18 AM EDT documented in this encounter Plan of Treatment Upcoming Encounters Date Type Department Care Team (Late st Contact Info) Description 12/21/2024 11:00 AM EDT Appointment [facility] Pulmonary [address] [place] [phone] 12/22/2024 11:00 AM EDT Pre-Admission Testing [facility] Pre-Admission Testing [address] [place] [phone] 12/28/2024 11:30 AM EDT Hospital Encounter [facility] Main OR [address] [place] [address] Jacquelyn Goldstein MD [address] [place] [phone] 12/28/2024 11:30 AM EDT - 12/28/2024 3:30 PM EDT Surgery [facility] Main OR [address] [place] [phone] Jacquelyn Goldstein MD [address] [place] [address] Navigational bronchoscopy dye marking, daVinci right upper lobe wedge ? segment, ?lobe [35249 (CPT ) +5 more] 01/11/2025 2:45 PM EDT Office Visit Thoracic Surgery - [address] [phone] Will Reyes PA [address] [place] [phone] Scheduled Orders Name Type Priority Associated Diagnoses Orde r Schedule Basic metabolic panel Lab Routine Pulmonary nodule 1 Occurrences starting 12/15/2024 until 12/15/2025 CBC and differential Lab Routine Pulmonary nodule 1 Occurrences starting 12/15/2024 until 12/15/2025 Prothrombin time with INR Lab Routine Pulmonary nodule Neoplasm 1 Occurrences starting 12/15/2024 until 12/15/2025 Activated partial thromboplastin time Lab Routine Pulmonary nodule Neoplasm 1 Occurrences starting 12/15/2024 until 12/15/2025 Type and screen Lab Routine Pulmonary nodule 1 Occurrences starting 12/15/2024 until 12/15/2025 ECG 12 lead - Procedural (No Charge) ECG Routine Pulmonary nodule 1 Occurrences starting 12/15/2024 until 12/15/2025 Scheduled Procedures Name Priority Associated Diagnoses Date/Ti me THORACOSCOPY ROBOT TWO Pulmonary nodule 12/28/2024 11:30 AM EDT documented as of this encounter Visit Diagnoses Diagnosis Pulmonary nodule- Primary Other diseases of lung, not elsewhere classified Lung nodule Other diseases of lung, not elsewhere classified Smoker Tobacco use disorder Neoplasm Neoplasm of unspecified nature, site unspecified Pulmonary nodule- Primary Other diseases of lung, not elsewhere classified Pulmonary nodule Other diseases of lung, not elsewhere classified documented in this encounter Orders Outpatient Referral Count Last Ordered Date Fir st Ordered Date AMB REFERRAL TO THORACIC SURGERY 1 12/16/19 Nursing Count Last Ordered Date First Orde red Date DIET INSTRUCTIONS TO NURSING 1 12/15/2024 Case Request Count Last Ordered Date First Orde red Date CASE REQUEST OPERATING ROOM 1 12/15/2024 documented in this encounter Care Teams Life Coach Relationship Specialty Start Date End Date Dona Man MD [address] [place] [address] PCP - General Internal Medicine 11/28/24 documented as of this encounter
[2024-12-15 12:28] VITALS: BP 144/80; PULSE 92; TEMP 37; O2SAT 96; BMI 24.6
--- NOTE | 2024-12-15 12:28 | MHC.OFFWIV ---
Intake Vital Signs 12/15/24 12:28 12/15/24 12:35 Height 5 ft Weight 126 lb BMI 24.6 BP 144/80 H 140/80 H Blood Pressure Location Lt brachial Rt brachial Position Sitting Sitting Pulse 92 Pulse Source Pulse Oximeter Temp 98.6 F Temp Source Oral Pulse Oximetry (%) 96 Oxygen Delivery Method Room Air Intake Visit Reasons: EP High BP Intake Note: pt presents with concern for high blood pressure- HTN was determined at appt with surgeon this morning 12/28 nodule to be removed from lung Patient Tobacco Use Status: Former Tobacco user Allergies Sulfa (Sulfonamide Antibiotics) Allergy (Unknown, Verified 12/15/24 12:32) fever and redness sulfamethoxazole (From Bactrim) Allergy (Unknown, Verified 12/15/24 12:32) unknown trimethoprim (From Bactrim) Allergy (Unknown, Verified 12/15/24 12:32) unknown Do you need a note to return to daycare/school/sports/work: No HPI HPI Comments History of Present Illness Details History of Present Illness - The patient is a 74-year-old female presenting with elevated blood pressure readings. - Reports of blood pressure readings at a hospital visit were 188/90 mmHg and 188/100 mmHg, with home readings of 177/90 mmHg. - A smaller cuff at the hospital showed a reading of 144 mmHg, highlighting the need for proper cuff size. - The patient is not on antihypertensive medication. - Clinic blood pressure was 150/90 mmHg, lower than previous readings. - Anxiety related to medical visits may contribute to elevated readings, known as white coat hypertension. - Denies headaches, chest pain, shortness of breath, or vision changes. - Upcoming surgery scheduled for December 28 requires preoperative evaluation. Physical Exam General: Cooperative, healthy appearing, comfortable, no acute distress and well developed Orientation: Patient oriented x3 Limitations: No limitations Eyes: PERRLA, EOMI Neck: Normal visual inspection and Yes full ROM Respiratory: Normal respiratory effort and able to speak in complete sentences. Clear to auscultation bilaterally Cardiovascular: Regular rate and rhythm. Normal S1 and S2 Skin: No edema noted Patient was informed and verbally consented to the use of an ambient scribe for clinic note documentation during this visit. [facility] Medical History (Updated 10/05/24 @ 10:03 by Dona Man MD) Colon cancer screening Nausea vomiting and diarrhea Lumbar spinal stenosis Annual physical exam Fatigue Hyperlipidemia History of mammogram Surgical History H/O colonoscopy S/P cervical spinal fusion Social History Housing: House Alcohol intake: current Alcohol intake frequency: a few times a week Patient Tobacco Use Status: Former Tobacco user e-Cigarette/Vaping Use: Never Used Second Hand Smoke Exposure: No service: No Current occupational status: employed Current occupation: [employer] Current occupational exposures/hazards: No Cognitive needs: No Hearing needs: No Vision needs: Yes Review of Systems Const All systems reviewed & are unremarkable except as noted in HPI and below Physical Exam Vital Signs: Last Vital Signs Temp 98.6 F 12/15/24 12:28 Pulse 92 12/15/24 12:28 BP 140/80 H 12/15/24 12:35 Pulse Ox 96 12/15/24 12:28 Oxygen Delivery Method Room Air 12/15/24 12:28 BMI result Body Mass Index 24.6 Assessment & Plan Assessment & Plan (1) High blood pressure: Code(s): I10 - Essential (primary) hypertension Qualifiers: Hypertension type: unspecified Qualified Code(s): I10 - Essential (primary) hypertension Plan Most likely white coat HTN vs HTN Plan - Monitor blood pressure daily at home using a properly sized cuff. - Advise to reduce salt intake and avoid caffeine before measuring blood pressure. - Follow-up with primary care physician before surgery for further evaluation and management. - Acknowledge anxiety related to medical visits as a contributing factor to elevated readings. - No immediate pharmacological intervention required due to normal home readings. Coding Level of Care Code Est Pt Level 3 (94359) Diagnoses Hypertension, unspecified type I10 Hypertension type: unspecified
[2024-12-15 12:35] VITALS: BP 140/80
--- OUTSIDE RECORDS SUMMARY | 2024-12-15 12:51 | XMS_ITS | Encounter Summary ---
Author Organization [facility] Address [address] [facility] [address] [place] [phone] Phone Care Team Providers Care Core Oven Tender Name Role Phone Johanne Gupta MD Primary Care Provider Encounter Details Date Type Department Care Team (Late st Contact Info) Description 11/16/2017 Procedure Pass [facility] [place] [address] Social History Tobacco Use Types Packs/Day Years Used Date Smoking Tobacco: Former Alcohol Use Standard Drinks/Week Comments Yes 0 (1 standard drink = 0.6 oz pur e alcohol) Comments Unknown Sex and Gender Information Value Date Recorded Sex Assigned at Not on file Legal Sex Female 7:47 PM EST Gender Identity Not on file Sexual Orientation Not on file documented as of this encounter Plan of Treatment Not on file documented as of this encounter Visit Diagnoses Not on filedocumented in this encounter Care Teams Core Oven Tender Relationship Specialty Start Date End Date Johanne Gupta MD [address] [place] [phone] [email or web address] PCP - General Gastroenterology 11/05/17 documented as of this encounter Additional Source Comments The information contained in this document represents components of the legal health record. It is not the complete legal health record.[facility]
--- OUTSIDE RECORDS SUMMARY | 2024-12-15 12:51 | XMS_ITS | Encounter Summary ---
Author Organization [facility] Address [address] [place] [phone] Phone Care Team Providers Care Animal Chiropractor Name Role Phone Unknown, Unknown Primary Care Provider Teja Salmon MD Primary Care Provider [phone] Joahnne Gupta MD Primary Care Provider Encounter Details Date Type Department Care Team (Late st Contact Info) Description 08/12/2016 Procedure Pass [facility] [place] [address] Social History Tobacco Use Types Packs/Day Years Used Date Smoking Tobacco: Never Assessed Comments Unknown Sex and Gender Information Value Date Recorded Sex Assigned at Not on file Legal Sex Female 7:47 PM EST Gender Identity Not on file Sexual Orientation Not on file documented as of this encounter Plan of Treatment Not on file documented as of this encounter Visit Diagnoses Not on filedocumented in this encounter Care Teams Animal Chiropractor Relationship Specialty Start Date End Date Unknown, Unknown, PCP - General 01/26/14 09/01/16 Teja Ambrosio MD [address] [place] [phone] [email or web address] PCP - General Internal Medicine 09/02/16 11/04/17 Johanne Gupta MD [address] [place] [phone] [email or web address] PCP - General Gastroenterology 11/05/17 documented as of this encounter Additional Source Comments The information contained in this document represents components of the legal health record. It is not the complete legal health record.[facility]
--- OUTSIDE RECORDS SUMMARY | 2024-12-15 12:51 | XMS_ITS | Encounter Summary ---
Author Organization [facility] Address [address] [place] [phone] Phone Care Team Providers Care Animal Sticker Name Role Phone Johanne Gupta MD Primary Care Provider Encounter Details Date Type Department Care Team (Late st Contact Info) Description 11/20/2017 Ancillary Orders [facility] Radiology [place] [address] Johanne Gupta MD [address] [place] [phone] [email or web address] Screening breast examination Social History Tobacco Use Types Packs/Day Years [...] on file documented as of this encounter Results * BI MAMMOGRAM SCREENING WITH TOMOSYNTHESIS WITH CAD (BILATERAL) (08/24/2018 10:27 AM EDT) Anatomical Region Laterality Modality Breast Left, Breast Right, Breast Bilateral Bila teral Mammography 08/24/2018 Impressions 08/26/2018 10:32 AM EDT There is no specific mammographic evidence of malignancy. BI-RADS Category 1: Negative Patient's information is entered into a reminder system with a target due date for the next mammogram. Narrative 08/26/2018 10:32 AM EDT INDICATION FOR EXAM: Screening. PROCEDURE: The following standard mammographic and tomosynthesis views were obtained: craniocaudal and mediolateral oblique. Computer-aided detection was utilized by the radiologist in the interpretation of this examination. BILATERAL MAMMOGRAM: The present study is compared to previous imaging. There are scattered fibroglandular densities. No suspicious masses, calcifications or other abnormalities are seen in either breast. Procedure Note Pascual Cook MD - 08/26/2018 INDICATION FOR EXAM: Screening. PROCEDURE: The following standard mammographic and tomosynthesis views were obtained:craniocaudal and mediolateral oblique. Computer-aided detection wasutilized by the radiologist in the interpretation of this examination. BILATERAL MAMMOGRAM: The present study is compared to previous imaging. There are scattered fibroglandular densities. No suspicious masses, calcifications or other abnormalities are seen ineither breast. IMPRESSION: There is no specific mammographic evidence of malignancy. BI-RADS Category 1: Negative Patient's information is entered into a reminder system with a target duedate for the next mammogram. Result [facility] Johanne Gupta MD IMG MG EXAMS Final Result documented in this encounter Visit Diagnoses Diagnosis Screening breast examination Other screening breast examination Screening breast examination Other screening breast examination documented in this encounter Care Teams Animal Sticker Relationship Specialty Start Date End Date Johanne Gupta MD [address] [place] [phone] [email or web address] PCP - General Gastroenterology 11/05/17 documented as of this encounter Additional Source Comments The information contained in this document represents components of the legal health record. It is not the complete legal health record.[facility]
--- OUTSIDE RECORDS SUMMARY | 2024-12-15 12:51 | XMS_ITS | Encounter Summary ---
Author Organization [facility] Address [address] [place] [phone] Phone Care Team Providers Care It Disaster Recovery Manager Name Role Phone Johanne Gupta MD Primary Care Provider Reason for Referral * MRI/CAT Scan - Closed Specialty Diagnoses / Procedures Referred By Anshul navarrete Referred To Contact Radiology Diagnoses Persistent cough Procedures CT Chest Johanne Gupta MD Phone: tel: fax: [email or web address] Referral ID Status Reason Start Date Expiration Date Visits Re quested Visits Authorized [id number] Closed 11/16/2017 11/18/2018 1 1 Encounter Details Date Type Department Care Team (Late st Contact Info) Description 11/16/2017 Ancillary Orders [facility] [place] [address] Johanne Gupta MD [address] [place] [phone] [email or web address] Persistent cough Social History Tobacco Use Types Packs/Day Years [...] documented as of this encounter Results * CT CHEST WITH CONTRAST (11/20/2017 12:30 PM EDT) Anatomical Region Laterality Modality Chest Computed Tomogra phy 11/20/2017 1:33 PM EDT Impressions 11/20/2017 3:06 PM EDT Scattered multifocal pulmonary nodules measuring up to 6 mm may be infectious/inflammatory. Emphysema. Aortic and coronary artery atherosclerosis. RECOMMENDATION: Follow-up chest CT in 6 months. This report has been forwarded to an automated communication system which will electronically notify appropriate providers of potentially important findings. Narrative 11/20/2017 3:[address] CHEST WITH CONTRAST Diagnostic CT scan of the chest WITH intravenous contrast, using standard protocol. Persisting cough. COMPARISON: XR CHEST PA AND LATERAL 2 VIEWS 09/30/2016. FINDINGS: Lines/tubes: None. Lungs and Airways: There is dependent atelectasis in the lung bases. Unchanged mild scarring and atelectatic change in posteromedial right lower lobe, abutting right anterolateral thoracic osteophytosis.. There is moderate centrilobular and paraseptal emphysema in the mid and upper lung zones. Linear scarring in the middle lobe and lingula is noted. There is mild diffuse bronchial wall thickening with scattered peripheral mucous plugs. Scattered indeterminate pulmonary nodules measure up to 6 mm in the subpleural right lower lobe (series 3, image 248). Additional nodules measuring 2 to 4 mm are present in all the and marked with arrows on series 3. For example, examples of these can be found on image 56, 62, 81, 97, 99 and 116. Pleura: The pleural spaces are clear. Heart and mediastinum: The thyroid gland is normal. No significant mediastinal or hilar lymphadenopathy is seen. The heart is normal in size without pericardial effusion. There are mild three-vessel coronary artery calcifications. There is mild atherosclerosis of the normal caliber thoracic aorta and branches. Soft tissues: No size-specific axillary or supraclavicular lymphadenopathy is seen. Abdomen: Limited contrast-enhanced views of the upper abdomen show no abnormality within the visualized spleen or kidneys. Mild diffuse hepatic steatosis. The adrenal glands are normal. Bones: There are changes of lower cervical ACDF, with osseous fusion across several lower cervical vertebral bodies. There are degenerative changes in the bones. There are no suspicious lytic or blastic osseous lesions. Procedure Note Victor M Hines MD - 11/20/2017 CT CHEST WITH CONTRAST Diagnostic CT scan of the chest WITH intravenous contrast, usingstandard protocol. Persisting cough. COMPARISON: XR CHEST PA AND LATERAL 2 VIEWS 09/30/2016. FINDINGS: Lines/tubes: None. Lungs and Airways: There is dependent atelectasis in the lung bases.Unchanged mild scarring and atelectatic change in posteromedial right lower lobe,abutting right anterolateral thoracic osteophytosis.. There is moderatecentrilobular and paraseptal emphysema in the mid and upper lung zones. Linear scarring inthe middle lobe and lingula is noted. There is mild diffuse bronchial wall thickening with scattered peripheral mucous plugs. Scattered indeterminate pulmonary nodules measure up to 6 mm in thesubpleural right lower lobe (series 3, image 248). Additional nodules measuring 2 to4 mm are present in all the and marked with arrows on series 3. For example,examples of these can be found on image 56, 62, 81, 97, 99 and 116. Pleura: The pleural spaces are clear. Heart and mediastinum: The thyroid gland is normal. No significantmediastinal or hilar lymphadenopathy is seen. The heart is normal in size without pericardial effusion. There are mild three-vessel coronary artery calcifications. There is mild atherosclerosis of the normal caliberthoracic aorta and branches. Soft tissues: No size-specific axillary or supraclavicular lymphadenopathyis seen. Abdomen: Limited contrast-enhanced views of the upper abdomen show no abnormality within the visualized spleen or kidneys. Mild diffusehepatic steatosis. The adrenal glands are normal. Bones: There are changes of lower cervical ACDF, with osseous fusionacross several lower cervical vertebral bodies. There are degenerative changesin the bones. There are no suspicious lytic or blastic osseous lesions. IMPRESSION: Scattered multifocal pulmonary nodules measuring up to 6 mm may be infectious/inflammatory. Emphysema. Aortic and coronary artery atherosclerosis. RECOMMENDATION: Follow-up chest CT in 6 months. This report has been forwarded to an [employer] communication system whichwill electronically notify appropriate providers of potentially importantfindings. Johanne Gupta MD [facility] CT CHEST Final Result documented in this encounter Visit Diagnoses Diagnosis Persistent cough Persistent cough documented in this encounter Care Teams It Disaster Recovery Manager Relationship Specialty Start Date End Date Johanne Gupta MD [address] [place] [phone] [email or web address] PCP - General Gastroenterology 11/05/17 documented as of this encounter Additional Source Comments The information contained in this document represents components of the legal health record. It is not the complete legal health record.[facility]
--- OUTSIDE RECORDS SUMMARY | 2024-12-15 12:51 | XMS_ITS | Encounter Summary ---
Author Organization [facility] Address [address] [place] [phone] Phone Care Team Providers Care Farmworker [employer]ified [employer]ps Name Role Phone Teja Ambrosio MD Primary Care Provider [phone] Johanne Gupta MD Primary Care Provider Encounter Details Date Type Department Care Team (Late st Contact Info) Description 12/12/2016 Ancillary Orders [facility] [place] [address] Orlando Higgins, [place] [address] [place] [phone] [email or web address] Foraminal stenosis of lumbar region Social History Tobacco Use Types Packs/Day Years [...] as of this encounter Visit Diagnoses Diagnosis Foraminal stenosis of lumbar region documented in this encounter Care Teams Farmworker [employer] Relationship Specialty Start Date End Date Teja Ambrosio MD [address] [place] [address] [place] [phone] [email or web address] PCP - General Internal Medicine 09/02/16 11/04/17 Johanne Gupta MD [address] [place] [address] [email or web address] PCP - General Gastroenterology 11/05/17 documented as of this encounter Additional Source Comments The information contained in this document represents components of the legal health record. It is not the complete legal health record.[facility]
--- OUTSIDE RECORDS SUMMARY | 2024-12-15 12:51 | XMS_ITS | Encounter Summary ---
Author Organization [facility] Address [address] [place] [address] Phone Care Team Providers Care Speech/Language Therapist Name Role Phone Unknown, Unknown Primary Care Provider Teja Salmon MD Primary Care Provider [phone] Johanne Gupta MD Primary Care Provider Reason for Referral * MRI/CAT Scan - Closed Specialty Diagnoses / Procedures Referred By Anshul navarrete Referred To Contact Radiology Diagnoses Pain Procedures MRI Cervical Spine MRI Neck Johanne Gupta MD Phone: tel: fax: mailto:[email or web address] Referral ID Status Reason Start Date Expiration Date Visits Re quested Visits Authorized [id number] Closed 08/12/2016 11/19/2016 1 1 Encounter Details Date Type Department Care Team (Late st Contact Info) Description 08/12/2016 Ancillary Orders [facility] [place]iology [place] [address] Johanne Gupta MD [address] [place] [phone] [email or web address] Pain Social History Tobacco Use Types Packs/Day Years Used Date Smoking Tobacco: Never Assessed Comments Unknown Sex and Gender Information Value Date Recorded Sex Assigned at Not on file Legal Sex Female 7:47 PM EST Gender Identity Not on file Sexual Orientation Not on file documented as of this encounter Plan of Treatment Not on file documented as of this encounter Results * MRI CERVICAL SPINE (NEURO) FOCUS WITHOUT CONTRAST (08/26/2016 10:23 AM EDT) Anatomical Region Laterality Modality C-spine Magnetic Resonan ce 08/27/2016 10:0 4 AM EDT Impressions 08/27/2016 12:46 PM EDT Severe spinal canal stenosis at C4-C5 with contribution of disc osteophyte complex and C4-C5 retrolisthesis related to ACDF of C5-C6. There is focal T2 hyperintensity within the spinal cord at the C4-C5 level with mild amount of volume loss consistent with myelomalacia. This report has been forwarded to an automated communication system which will electronically notify appropriate providers of potentially important findings. Narrative 08/27/2016 12:46 PM EDT Reviewed by Dr. Usama Alexandra with Dr. Moe Londono (Attending Radiologist) TECHNIQUE: MRI CERVICAL SPINE (NEURO) FOCUS WITHOUT CONTRAST HISTORY: Has a heterogeneous. 60 years old female with paresthesias in both hands. COMPARISON: None. FINDINGS: There is minimal retrolisthesis of C4 on C5 and mild anterolisthesis of C6 on C7. Vertebral body height is preserved. There is a small focus of T2 hyperintensity located within the spinal cord at the level of C4-C5 along approximately 12 SI millimeters. There is mild amount of spinal cord volume loss at this level consistent with myelomalacia. There are findings related to prior ACDF from C4 to C6. There is heterogeneous T2 hyperintensity within the C5 and C6 vertebra, most likely consistent of degenerative origin. The craniocervical junction and the portion appreciated of the brain parenchyma is within normal limits. There are a few lymph nodes within the posterior cervical chains without evidence of lymphadenopathy. The visualized portions of the brain are unremarkable. The paraspinal soft tissues are unremarkable. SIGNIFICANT FINDINGS BY LEVEL: C2-3: There is no significant posterior disc abnormality, spinal canal stenosis, or neural foraminal stenosis. C3-4: There is no significant posterior disc abnormality, spinal canal stenosis, or neural foraminal stenosis. C4-5: There is a disc osteophytic complex and mild C4 retrolisthesis with bilateral mild facet hypertrophy and ligament of labeled infolding resulting in a severe spinal canal stenosis. There is focal T2 hyperintensity within the spinal cord at this level, as detailed above. There is mild amount of spinal cord probably most consistent with myelomalacia. C5-6: There are findings related to prior ACDF fusion. There is no evidence of spinal canal stenosis or neuroforaminal narrowing. C6-7: There is mild disc osteophytic complex with C6 on C7 mild anterolisthesis. There is however no evidence of significant spinal canal stenosis or neural foraminal narrowing. C7-T1: There is mild disco cystic complex without evidence of significant spinal canal stenosis or neural foraminal narrowing. Procedure Note Moe Londono MD, PhD - 08/27/[address] Usama Alexandra with Dr. Moe Londono (Attending Radiologist) TECHNIQUE: MRI CERVICAL SPINE (NEURO) FOCUS WITHOUT CONTRAST HISTORY: Has a heterogeneous. 60 years old female with paresthesias inboth hands. COMPARISON: None. FINDINGS: There is minimal retrolisthesis of C4 on C5 and mild anterolisthesis of C6on C7. Vertebral body height is preserved. There is a small focus of T2 hyperintensity located within the spinal cordat the level of C4-C5 along approximately 12 SI millimeters. There is mildamount of spinal cord volume loss at this level consistent with myelomalacia. There are findings related to prior ACDF from C4 to C6. There is heterogeneous T2 hyperintensity within the C5 and C6 vertebra,most likely consistent of degenerative origin. The craniocervical junction and the portion appreciated of the brainparenchyma is within normal limits. There are a few lymph nodes within the posterior cervical chains without evidence of lymphadenopathy. The visualized portions of the brain are unremarkable. The paraspinal soft tissues are unremarkable. SIGNIFICANT FINDINGS BY LEVEL: C2-3: There is no significant posterior disc abnormality, spinal canalstenosis, or neural foraminal stenosis. C3-4: There is no significant posterior disc abnormality, spinal canalstenosis, or neural foraminal stenosis. C4-5: There is a disc osteophytic complex and mild C4 retrolisthesiswith bilateral mild facet hypertrophy and ligament of labeled infoldingresulting in a severe spinal canal stenosis. There is focal T2 hyperintensity withinthe spinal cord at this level, as detailed above. There is mild amount ofspinal cord probably most consistent with myelomalacia. C5-6: There are findings related to prior ACDF fusion. There is noevidence of spinal canal stenosis or neuroforaminal narrowing. C6-7: There is mild disc osteophytic complex with C6 on C7 mildanterolisthesis. There is however no evidence of significant spinal canal stenosis orneural foraminal narrowing. C7-T1: There is mild disco cystic complex without evidence of significantspinal canal stenosis or neural foraminal narrowing. IMPRESSION: Severe spinal canal stenosis at C4-C5 with contribution of discosteophyte complex and C4-C5 retrolisthesis related to ACDF of C5-C6. There is focalT2 hyperintensity within the spinal cord at the C4-C5 level with mild amountof volume loss consistent with myelomalacia. This report has been forwarded to an automated communication system whichwill electronically notify appropriate providers of potentially importantfindings. Johanen Gupta MD [facility] [place] [facility] Jen l Result documented in this encounter Visit Diagnoses Diagnosis Pain Generalized pain Pain Generalized pain documented in this encounter Care Teams Speech/Language Therapist Relationship Specialty Start Date End Date Unknown, Unknown, MD PCP - General 01/26/14 09/01/16 Teja Ambrosio MD [address] [place] [phone] [email or web address] PCP - General Internal Medicine 09/02/16 11/04/17 Johanne Gupta MD [address] [place] [address] [email or web address] PCP - General Gastroenterology 11/05/17 documented as of this encounter Additional Source Comments The information contained in this document represents components of the legal health record. It is not the complete legal health record.[facility]
--- OUTSIDE RECORDS SUMMARY | 2024-12-15 12:51 | XMS_ITS | Clinical Summary ---
Author Organization [facility] Address [address] [address] Phone Care Team Providers Care Booth Manager Name Role Phone Johanne Gupta MD Primary Care Provider Allergies Active Allergy Reactions Criticality Noted Date Comments Sulfa (Sulfonamide Antibiotics) Fever 08/18 Medications senna (SENOKOT) 8.6 mg tablet Take 1 tablet by mouth daily. Active diazePAM (VALIUM) 5 MG tablet Take 2.5 mg by mouth every 8 (eight) hours as needed for other (free text field) (MUSCLE RELAXER, TAKES WHEN PRESSURE GOES UP). Active cholecalciferol (VITAMIN D3) 5,000 unit tablet Take 5,000 Units by mouth daily. Active benzonatate (TESSALON) 100 MG capsule Take 1 capsule (100 mg total) by mouth 3 (three) times a day as needed for cough. 20 capsule 7 Active Additional Information Patient not taking.Reported on 10/10/2018 Active Problems Problem Noted Date Diagnosed Date Foot pain 12/23/2013 Overview (06/10/2014): Foot pain Hypothyroidism 09/05/2013 Overview (06/10/2014): Hypothyroidism Smoker 09/05/2013 Overview (06/10/2014): Smoker Family History Medical History Relation Comments Lung cancer Father Lung Cancer Coronary artery disease Maternal Grandfather Cor onary Artery Disease Relation Status Comments Father Maternal Grandfather Social History Tobacco Use Types Packs/Day Years Used Date Smoking Tobacco: Former Cigarettes Q uit: 08/18/2017 Smokeless Tobacco: Never Alcohol Use Standard Drinks/Week Comments Yes 0 (1 standard drink = 0.6 oz pur e alcohol) RARE Education Answer Date Recorded Are you interested in more education? Not on katheryn e 08/14/2022 Are you concerned about learning? Not on file 08/14/2022 No 08/14/2022 No 08/14/2022 Digital Access Answer Date Recorded No 09/15/2022 No 09/15/2022 Reliable internet access at home? Not on file 09/15/2022 Device with a working camera? Not on file Comments No Sex and Gender Information Value Date Recorded Sex Assigned at Not on file Legal Sex Female 7:47 PM EST Gender Identity Not on file Sexual Orientation Not on file Last Filed Vital Signs Vital Sign Reading Time Taken Comments Blood Pressure 149/76 10/10/2018 6:17 AM EDT Pulse 92 10/10/2018 6:17 AM EDT Temperature 36.8 C (98.2 F) 10/10/2018 6:17 AM EDT Respiratory Rate 18 10/10/2018 6:17 AM EDT Oxygen Saturation 98% 10/10/2018 6:17 AM EDT Inhaled Oxygen Concentration - - Weight 52.2 kg (115 lb) 10/10/2018 6:15 AM EDT Height 152.4 cm (5') 10/10/2018 6:15 AM EDT Body Mass Index 22.46 10/10/2018 6:15 AM EDT Plan of Treatment Health Maintenance Due Date Last Done Comments Adult Td,Tdap Booster 1948 DEPRESSION SCREENING 1960 SMOKING Hx and SMOKELESS TOBACCO SCREENING 1961 HEPATITIS C SCREENING 1966 COLOGUARD 1993 FIT TEST 1993 FOBT 1993 SIGMOIDOSCOPY 1993 VIRTUAL COLONOSCOPY 1993 OSTEOPOROSIS SCREENING INITIAL (ONE-TIME) 2013 COLONOSCOPY 10/06/2018 10/06/2013 COLORECTAL CANCER SCREENING 10/06/2018 LIPID PANEL 05/16/2021 05/16/2016, 06/19/2010 PNEUMOCOCCAL VACCINES (50+ years) (2 of 2 - PPSV23) 01/18/2022 01/18/2021 RSV VACCINE (1 - 1-dose 75+ series) 2023 COVID-19 VACCINE (4 - 2023- season) 2023 02/28/2021, 06/29/2020, 06/06/2020 INFLUENZA VACCINE (#1) 2024 , 12/09/2019, 03/12/2018, Additional history exists ZOSTER VACCINES Completed 06/07/2021, 03/22/2021 HEPATITIS A VACCINES Aged Out No long er eligible based on patient's age to complete this topic HIB VACCINES Aged Out No longer eligi ble based on patient's age to complete this topic MENINGOCOCCAL VACCINES (ACWY) Aged Out No longer eligible based on patient's age to complete this topic MENINGOCOCCAL VACCINES (B) Aged Out N o longer eligible based on patient's age to complete this topic Medical Devices Not on file Procedures Procedure Name Priority Date/Time Associated Diagnosis Comments LIPID PANEL Routine 05/16/2016 9:09 AM EST HM COLONOSCOPY FOR RESULT ENTRY ONLY Routine 10/06/2013 from Last 3 Months or Most Recently Relevant to Health Maintenance Results * (ABNORMAL) Lipid panel (05/16/2016 9:09 AM EST) CHOLESTEROL 210(Abnor amelia H) <200 mg/dL [facility] TRIGLYCERIDES 99 0 - 200 mg/dL [facility] LDL CHOLESTEROL, CALCULATED 134(Abnor amelia H) <130 mg/dL [facility] Comment: LDL REFERENCE RANGES ADULT LEVELS RECOMMENDED (DESIRABLE) <130 MG/DL RISK LEVEL 130-159 MG/DL RISK INDICATOR >160 MG/DL HDL CHOLESTEROL 56 mg/dL [facility] Comment: HDL REFERENCE RANGES MALE FEMALE FAVORABLE >55 MG/DL > 65 MG/DL RISK LEVEL 35 - 55 MG/DL 45 - 65 MG/DL RISK INDICATOR <35 MG/DL <45 MG/DL 05/16/2016 9:09 AM EST 05/16/2016 9:18 AM EST us Conversion Provider Not In Sys LAB BLOOD ORDERAB LES Final Result [facility] [address] [place] [address], [facility] * COLONOSCOPY FOR RESULT ENTRY ONLY (10/06/2013) Colonoscopy History of diverticulo sis, history of polyps and rectal bleeding. rpt 5 yrs us Historical Provider HEALTH MAINTENANCE Final Result from Last 3 Months or Most Recently Relevant to Health Maintenance Insurance MEDICARE PART A & B [facility] TOTAL CHOICE INDEMNITY MEDICARE PART A & B [employer] TOTAL CHOICE INDEMNITY MEDICARE PART A & B [employer] TOTAL CHOICE INDEMNITY MEDICARE PART A & B [facility] TOTAL CHOICE INDEMNITY MEDICARE PART A & B [facility] TOTAL CHOICE INDEMNITY MEDICARE PART A & B [facility] TOTAL CHOICE INDEMNITY MEDICARE PART A & B [employer] TOTAL CHOICE INDEMNITY MEDICARE PART A & B [employer] TOTAL CHOICE INDEMNITY MEDICARE PART A & B [facility] TOTAL CHOICE INDEMNITY Care Teams Booth Manager Relationship Specialty Start Date End Date Johanne Gupta MD [address] [place] [id number] [email or web address] PCP - General Gastroenterology 11/05/17 Additional Source Comments The information contained in this document represents components of the legal health record. It is not the complete legal health record.[facility]
--- OUTSIDE RECORDS SUMMARY | 2024-12-15 12:51 | XMS_ITS | Encounter Summary ---
Author Organization [facility] Address [address] [place] [phone] Phone Care Team Providers Care Airline Hostess Name Role Phone Teja Ambrosio MD Primary Care Provider [phone] Johanne Gupta MD Primary Care Provider Encounter Details Date Type Department Care Team (Late st Contact Info) Description 09/02/2016 Transcribe Orders [facility] [address] [place] [address] Madison Dugan, RN [address] [place] [address] Pre-op exam (Primary Dx) Social History Tobacco Use Types Packs/Day Years Used Date Smoking Tobacco: Never Assessed Comments Unknown Sex and Gender Information Value Date Recorded Sex Assigned at Not on file Legal Sex Female 7:47 PM EST Gender Identity Not on file Sexual Orientation Not on file documented as of this encounter Plan of Treatment Not on file documented as of this encounter Results * ECG 12 lead (09/02/2016 10:27 AM EDT) Impressions EXTERNAL NON-INTERFACED REF LAB - 09/02/2016 10:27 AM EDT SEE SCANNED DOCUMENT FOR EKG us Provider Not In System PhD ECG ORDERABLES Final Result EXTERNAL NON-INTERFACED REF LAB documented in this encounter Visit Diagnoses Diagnosis Pre-op exam- Primary Pre-op exam documented in this encounter Care Teams Airline Hostess Relationship Specialty Start Date End Date Teja Ambrosio MD [address] [place] [address] [email or web address] (Inspect Manager) PCP - General Internal Medicine 09/02/16 11/04/17 Johanne Gupta MD [address] [place] [address] [email or web address] PCP - General Gastroenterology 11/05/17 documented as of this encounter Additional Source Comments The information contained in this document represents components of the legal health record. It is not the complete legal health record.[facility]
--- OUTSIDE RECORDS SUMMARY | 2024-12-15 12:51 | XMS_ITS | Clinical Summary ---
Author Organization [facility] [address] [facility] Address [address] [place] [address] Phone Care Team Providers Care Lsat Instructor Name Role Phone Dona Man MD Primary Care Provider [phone] Allergies Active Allergy Reactions Criticality Noted Date Comments Sulfa (Sulfonamide Antibiotics) 02/18 Medications calcium carbonate/vitam in D3 (CALCIUM + D ORAL) 1 TAB BID Active ibuprofen (ADVIL,MOTRIN) 600 mg tablet 1 TABLET 3 TIMES DAILY Active MULTIVITAMIN ORAL None Entered Active carisoprodoL (Soma) 350 mg tablet 1 TABLET 3 TIMES DAILY NEEDED 05/08/2005 Active varenicline (CHANTIX CIERA) 0.5 mg (11)- 1 mg (42) tablet use as directed 09/10/2009 Active Active Problems Problem Noted Date Diagnosed Date Pulmonary nodule 12/15/2024 Herpes simplex 07/15/2007 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 Diverticulitis of colon without hemorrhage 10/05 Overview (04/18/2024): Incidental finding at colonoscopy 10/05/2006. Disorder of bone and cartilage 01/16/2006 Overview (04/18/2024): IMO update Myalgia 05/08/2005 Overview (04/18/2024): Myalgia and myositis, unspecified IMO update Encounters Date Type Department Care Team Description 12/15/2024 9:15 AM EDT Consult Thoracic Surgery - [place] [facility] [address] [place] [phone] Jacquelyn Goldstein MD Pulmonary nodule (Primary Dx); Lung nodule; Smoker; Neoplasm 12/05/2024 Telephone Lung Screening Program - [place] [address] [phone] Radha Fair [place] 11/29/2024 10:24 AM EDT - 11/29/2024 11:59 PM EDT Hospital Encounter [facility] CT Scan [address] [place] [phone] Encounter for screening for lung cancer; Former smoker Discharge Disposition: Home or Self Care 11/29/2024 10:15 AM EDT Office Visit Lung Screening Program - [place] [address] [phone] Yamila Villareal NP Encounter for screening for malignant neoplasm of lung in former smoker who quit in past 15 years with 30 pack year history or greater (Primary Dx) from Last 3 Months Immunizations Name Administration Dates Next Due Influenza trivalent, with pr eservative (Fluzone; Afluria) 6mo and older 02/15/2007,04/04/2005,02/23/2003 Surgical History Surgery Date Site/Laterality Comments OTHER SURGICAL HISTORY PROCEDURE: [place] OSTEOTOMY SPINE PST/PSTLAT APPR 1 VRT SGM CRV; COMMENT: Fusion COLONOSCOPY W/ POLYPECTOMY 10/05/2006 PROCEDURE: [place] COLSC FLX W/RMVL OF TUMOR POLYP LESION SNARE TQ; COMMENT: Small hyperplastic polyp Medical History Medical History Date Comments Diverticulosis of colon (wit hout mention of hemorrhage) 10/05/2006 DX:Diverticulosis of colon ( without mention of hemorrhage); COMMENT: Incidental finding at colonoscopy 10/05/2006. Benign neoplasm of rectum an d anal canal 10/05/2006 DX:Benign neoplasm of rectum and anal canal; COMMENT: small rectal polyp, colonoscopy 10/05/2006: hyperplastic polyp, no colon cancer screening necessary for 10 years. Lani's disease DX:Lani 's disease Zoster DX:Zoster; COMME NT: C6 dermatome Smoker DX:Smoker Generalized osteoarthrosis, unspecified site DX:Generalized osteoarthrosi s, unspecified site Family History Medical History Relation Name Comments Thyroid disease Daughter 1 throid cance r /MS Lung cancer Father Diabetes Other 1 Relation Name Status Comments Brother Alive Daughter 1 Daughter 2 Alive MS /thyroid Father Mother Alive emphysema Other 1 Other 2 Son Alive Social History Tobacco Use Types Packs/Day Years [...] on file Sexual Orientation Not on file Obstetrics History Last Filed Vital Signs Vital Sign Reading [...] Mass Index 24.69 12/15/2024 9:18 AM EDT Plan of Treatment Upcoming Encounters Date Type Department Care Team (Late st Contact Info) Description 12/21/2024 11:00 AM EDT Appointment [facility] Pulmonary [address] [place] [address] 12/22/2024 11:00 AM EDT Pre-Admission Testing [facility] Pre-Admission Testing [address] [place] [address] 12/28/2024 11:30 AM EDT Hospital Encounter [facility] Main OR [address] [place] [phone] Jacquelyn Goldstein MD [address] [place] [address] 12/28/2024 11:30 AM EDT - 12/28/2024 3:30 PM EDT Surgery [facility] Main OR [address] [place] [phone] Jacquelyn Goldstein MD [address] [place] [address] Navigational bronchoscopy dye marking, Ginai right upper lobe wedge ? segment, ?lobe [19054 (CPT ) +5 more] 01/11/2025 2:45 PM EDT Office Visit Thoracic Surgery - [place] [address] [facility] [address] [place] [phone] Will Reyes PA [address] [place] [address] Scheduled Procedures Name Priority Associated Diagnoses Date/Ti me THORACOSCOPY ROBOT TWO Pulmonary nodule 12/28/2024 11:30 AM EDT Health Maintenance Due Date Last Done Comments Pneumococcal Vaccine: 50+ Years (2 of 2 - PPSV23) 01/18/2022 01/18/2021 Cholesterol Screening (Lipid Panel) 04/18/2024 07/13/2007 Falls Risk Assessment 04/18/2024 Hepatitis C Screening 04/18/2024 Medicare Annual Wellness Visit 04/18/2024 Osteoporosis Screening (Bone Density Screening) 04/18/2024 Social Influencers of Health Screening 04/18/2024 Depression Screening 04/20/2024 COVID-19 Vaccine ( season) 2024 01/29/2024, 01/30/2023, 08/15/2022, Additional history exists Lung Cancer Screening (Low Dose CT) 11/29/2025 11/29/2024 DTaP,Tdap,and Td Vaccines (2 - Td or Tdap) 03/11/2034 03/11/2024 Zoster Vaccines Completed 06/07/2021, 03/22/2021 RSV Immunization Adult Patients Completed 01/23/2023 Influenza Vaccine Completed 12/04/2024, , 12/15/2022, Additional history exists HIB Vaccines Aged Out No longer eligi ble based on patient's age to complete this topic HPV Vaccines Aged Out No longer eligi ble based on patient's age to complete this topic Hepatitis A Vaccines Aged Out No long er eligible based on patient's age to complete this topic Hepatitis B Vaccines Aged Out No long er eligible based on patient's age to complete this topic IPV Vaccines Aged Out No longer eligi ble based on patient's age to complete this topic MMR Vaccines Aged Out No longer eligi ble based on patient's age to complete this topic Meningococcal ACWY Vaccine Aged Out N o longer eligible based on patient's age to complete this topic Meningococcal B Vaccine Aged Out No l onger eligible based on patient's age to complete this topic RSV Immunization Patients Under 20 months Aged Out No longer eligible based on patient's age to complete this topic Varicella Vaccines Aged Out No longer eligible based on patient's age to complete this topic Procedures Procedure Name Priority Date/Time Associated Diagnosis Comments CT LUNG SCREENING Routine 11/29/2024 10: 32 AM EDT Encounter for screening for lung cancer Former smoker LIPID PANEL Routine 07/13/2007 from Last 3 Months or Most Recently Relevant to Health Maintenance Results * CT Lung Screening (11/29/2024 10:32 AM EDT) Anatomical Region Laterality Modality Chest Computed Tomogra phy 12/02/2024 10:2 0 AM EDT Impressions 12/02/2024 10:33 AM EDT There is a 1 cm mostly solid irregular peripheral nodule in the right upper lobe. Underlying emphysema. Innumerable scattered bilateral micronodules. LUNG RADS: Lung-RADS 4A: SUSPICIOUS S Modifier (Significant or Potentially Significant Findings): None present No suspicious nonpulmonary findings. RECOMMENDATIONS: [address]; PET/CT may be considered if there is a greater than or equal to 8 mm solid nodule or solid component -------- FINAL REPORT -------- Dictated By: Willian Colon Dictated Date: 12/02/2024 10:20 ET Assigned Physician: Willian Colon Reviewed and Electronically Signed By: Willian Colon Signed Date: 12/02/2024 10:33 ET Workstation ID: [id number] Transcribed By: Self Edit Transcribed Date: 12/02/2024 10:20 ET Narrative 12/02/2024 10:33 AM EDT EXAMINATION: CT CHEST WITHOUT CONTRAST LUNG CANCER SCREENING, LOW DOSE CLINICAL INFORMATION: Lung cancer screening. Current smoker. COMPARISON: None TECHNIQUE: Multidetector CT. Examination of the chest. Examination of the chest without IV contrast. Reformatting in the coronal and sagittal planes. Device: ReferralMD VCT DLP: 104 mGy-cm CTDI: 3.22 Dose optimization was performed including the use of low-dose iterative reconstruction technique with automatic exposure control based on patient size. Type of contrast: None Volume of IV contrast: None Volume of contrast discarded: 0 mL FINDINGS: LUNG: No abnormality of the trachea or mainstem bronchi. LUNG NODULES: There is a mostly solid irregular peripheral nodule in the lateral right upper lobe. No central calcification or cavitation. 11/29/24-1.0 x 0.9 cm () There are some smaller adjacent nodules. There are innumerable micronodules scattered throughout both lungs measuring up to 0.4 cm. OTHER PULMONARY: There is some mild volume loss the medial segment of the middle lobe. There is no honeycomb formation. There are linear fibrotic changes including adjacent to some lower right-sided thoracic osteophytes and involving the lower aspect of the right major fissure medially. There is at least moderately severe centrilobular emphysema. MEDIASTINUM: There are no enlarged mediastinal or hilar lymph nodes. No suspicious abnormalities of the esophagus. CARDIAC: The heart is not enlarged. No pericardial fluid or thickening There are marked coronary calcifications. VASCULAR: There is no thoracic aortic aneurysm. The main pulmonary artery is normal caliber PLEURA: There is no pleural fluid or pneumothorax AXILLA/CHEST WALL: There are no enlarged axillary lymph nodes. No chest wall mass demonstrated. VISUALIZED UPPER ABDOMEN: No suspicious abnormality on limited assessment of the visualized upper abdomen. MUSCULOSKELETAL: No suspicious focal bony lesion demonstrated. Prior cervical instrumentation. There is evidence of fusion in the lower cervical spine. There are cystic/erosive changes around the glenohumeral joint on each side Jacquelyn Goldstein MD IM CT PROCEDURES Final Result * (ABNORMAL) Lipid panel (07/13/2007) LDL/HDL Ratio 4 0 - 4 Triglycerides 129 0 - 150 mg/dL Cholesterol 220(A) 0 - 200 mg/dL HDL 58 >=40 mg/dL LDL Cholesterol 137(A) 0 - 100 mg/dL Blood Venous blood specimen / Unknown Historical Provider LAB BLOOD ORDERABLES Jen l Result from Last 3 Months or Most Recently Relevant to Health Maintenance Insurance MEDICARE [facility] Care Teams Lsat Instructor Relationship Specialty Start Date End Date Dona Man MD [address] [place] [address] PCP - General Internal Medicine 11/28/24
== END 2024-12-15 13:38 | disposition home or self-care (01) ==
PROVIDERS: PCP Internal Medicine; Visit Provider Physician Assistant Medical
DX: I10 Essential (primary) hypertension (principal)

== ENCOUNTER → 2024-12-15 11:36 | Outpatient (BNVA) | payer MEDICARE, OTHER, SELFPAY | PROVIDERS: PCP Internal Medicine; Visit Provider Physician Assistant Medical | DX: I10 Essential (primary) hypertension (principal) | CPT/HCPCS: 99212 ==

== ENCOUNTER 2024-12-22 10:18 | Outpatient (AMB) | payer MEDICARE, OTHER, SELFPAY ==
[2024-12-22 10:24] VITALS: BP 126/72; PULSE 93; RESP 18; TEMP 36.8; O2SAT 96; BMI 25.0
--- NOTE | 2024-12-22 10:24 | MHC.PC.OV ---
Vital Signs 12/22/24 10:24 12/22/24 11:17 Height 5 ft Weight 128 lb BMI 25.0 BP 126/72 140/85 H Blood Pressure Location Lt brachial Rt brachial Position Sitting Sitting Respiration 18 Pulse 93 Pulse Source Pulse Oximeter Temp 98.2 F Temp Source Oral Pulse Oximetry (%) 96 Oxygen Delivery Method Room Air Intake Visit Reasons: Pulmonary Nodule//[phone] Intake Note: Pt is here today for a pre op visit. Allergies Sulfa (Sulfonamide Antibiotics) Allergy (Unknown, Verified 12/22/24 10:24) fever and redness sulfamethoxazole (From Bactrim) Allergy (Unknown, Verified 12/22/24 10:24) unknown trimethoprim (From Bactrim) Allergy (Unknown, Verified 12/22/24 10:24) unknown adhesive tape Allergy (Verified 12/22/24 10:35) Rash Medication List - Last Reconciled 12/22/24 by Dona Man MD albuterol sulfate 90 mcg/actuation 2 puffs inhalation Q4-6H PRN 30 days cholecalciferol (vitamin D3) 50 mcg PO DAILY hydrocortisone 2.5% 1 appl topical BID PRN 7 days lactobacillus combination no.9 (Adult 50 Plus Probiotic) PO meloxicam 15 mg PO DAILY PRN naproxen sodium (Aleve) 220 mg PO Q12H PRN Tobacco use date assessed: 12/22/24 Fall risk assessment: No Falls in past year Last assessed Fall Risk: 12/22/24 Dental Screening Dental Screen Date: 12/22/24 Did you have a dental visit in the last 12 months?: Yes Did you have a dental problem in the last 6 months where you did not have access to dental care?: No Was dental information given to patient?: Patient has dentist HPI Pulmonary Nodule//[phone]- HPI Details Patient presents for the follow-up. She complains of fluctuating blood pressure with occasionally readings up to 150/90. Patient denies chest pain shortness or breath palpitations. Screening chest CT showed suspicious spiculated lung nodule a will have a surgery for resection at [facility] with Dr. Nuñez. [facility]LY [facility] Medical History Colon cancer screening Nausea vomiting and diarrhea Lumbar spinal stenosis Annual physical exam Fatigue Hyperlipidemia History of mammogram Surgical History H/O colonoscopy S/P cervical spinal fusion Family History Father No problems noted. Mother Hypertension Social History Housing: House Alcohol intake: current Alcohol intake frequency: a few times a week Patient Tobacco Use Status: Former Tobacco user e-Cigarette/Vaping Use: Never Used Second Hand Smoke Exposure: No service: No Current occupational status: employed Current occupation: [employer] Current occupational exposures/hazards: No Cognitive needs: No Hearing needs: No Vision needs: Yes Questionnaire Thrive Questionnaire Date Thrive assessed: 12/22/24 I am a: Patient What is your living situation today?: I have a steady place to live Within the past 12 months, did the food you bought not last and you didn't have the money to get more?: Never true Within the past 12 months, did you worry whether your food would run out before you got money to buy more?: Never true Do you have trouble paying for medicines?: No Do you have trouble getting transportation to medical appointments?: No Do you have trouble paying your heating and electricity bill?: No Do you have trouble taking care of your child, family member or friend?: No Do you have trouble with day-to-day activities such as bathing, preparing meals, shopping, managing finances, etc.?: No Are you currently unemployed and looking for a job?: No Are you interested in more education?: Yes Please select the resources that you would like help with: Education Currently or been in a relationship where the following occur: No concerns reported THRIVE Score: 0 DIETER-7 AMB Questionnaire DIETER-7 Date DIETER - 7 assessed: 10/05/24 Source: Developed by Drs. Devin Mccoy, Lakisha Buck, Karl Mcgowan and colleagues, with an educational diamante from [employer]. Review of Systems Const All systems reviewed & are unremarkable except as noted in HPI and below ENT Reports no additional complaints Card Reports no additional complaints Resp Reports no additional complaints GI Reports no additional complaints Reports no additional complaints Physical exam (Primary Care) Vital Signs: Last Vital Signs Temp 98.2 F 12/22/24 10:24 Pulse 93 12/22/24 10:24 Resp 18 12/22/24 10:24 BP 126/72 12/22/24 10:24 Pulse Ox 96 12/22/24 10:24 Oxygen Delivery Method Room Air 12/22/24 10:24 BMI result Body Mass Index 25.0 Tobacco/Smoking Status: Tobacco use Status Tobacco use date assessed 12/22/24 12/22/24 10:24 Patient Tobacco Use Status Former Tobacco user 12/22/24 10:24 e-Cigarette/Vaping Use Never Used 12/22/24 10:24 Thrive Assessment: Date of Thrive Assessment Date Thrive assessed 12/22/24 12/22/24 10:40 Currently or been in a relationship where the following occur: No concerns reported Const General: no acute distress HENMT Head: Yes normal to inspection Eyes General: appearance normal, both eyes and all related structures Neck Neck: Yes supple Resp Effort & Inspection: normal respiratory effort Auscultation: clear to auscultation bilaterally Cardio Rhythm: regular rhythm Heart sounds: S1 normal heart sound present and S2 normal heart sound present Coding Level of Care Code Est Pt Level 4 (55525) Diagnoses HTN (hypertension) I10 Lung nodule, solitary R91.1 Assessment & Plan Assessment & Plan (1) HTN (hypertension): Code(s): I10 - Essential (primary) hypertension Category: Medical Plan: Start metoprolol 50 mg a day, low-sodium diet stress management discussed with the patient follow-up next week for blood pressure check (2) Lung nodule, solitary: Comment: RUL 1 cm, irregular borders spiculated on CT 12/03/24, scheduled for resection with Dr. Nuñez at [facility] Code(s): R91.1 - Solitary pulmonary nodule Category: Medical Plan: Follow-up with thoracic surgery Medications: New metoprolol succinate ER 50 mg PO DAILY 30 tabs 0RF
[2024-12-22 11:17] VITALS: BP 140/85
--- OUTSIDE RECORDS SUMMARY | 2024-12-22 11:38 | XMS_ITS | Encounter Summary ---
Author Organization [facility] Address [address] [place] [phone] Phone Care Team Providers Care Ramp Service Agent Name Role Phone Unknown, Unknown Primary Care Provider Teja Salmon MD Primary Care Provider [phone] Johanne Gupta MD Primary Care Provider Encounter Details Date Type Department Care Team (Late st Contact Info) Description 08/12/2016 Procedure Pass [facility] [place] [address] Social History Tobacco Use Types Packs/Day Years [...] on filedocumented in this encounter Care Teams Ramp Service Agent Relationship Specialty Start Date End Date Unknown, Unknown, PCP - General 01/26/14 09/01/16 Teja Ambrosio MD [address] [place] [phone] [email or web address] PCP - General Internal Medicine 09/02/16 11/04/17 Johanne Gupta MD [address] [place] [phone] [email or web address] PCP - General Gastroenterology 11/05/17 documented as of this encounter Additional Source Comments The information contained in this document represents components of the legal health record. It is not the complete legal health record.[facility]
--- OUTSIDE RECORDS SUMMARY | 2024-12-22 11:38 | XMS_ITS | Encounter Summary ---
Author Organization [facility] Address [address] [place] [address] Care Team Providers Care Elevator Repair Mechanic Name Role Phone Dona Man MD Primary Care Provider Reason for Visit * Reason Onset Date Comments Procedure 12/15/2024 Pre op , surgery , post op Encounter Details Date Type Department Care Team ([facility] st Contact Info) Description 12/15/2024 Telephone Thoracic Surgery - [address] [phone] Yaneth Vuong [place] Social History Tobacco Use Types Packs/Day Years Used Date Smoking Tobacco: Former Cigarettes 1 52 1 964 - 2016 Alcohol Use Standard Drinks/Week Comments Yes 0 (1 standard drink = 0.6 oz pur e alcohol) Comments Unknown Sex and Gender Information Value Date Recorded Sex Assigned at Female 11/23/2024 8:51 PM EDT Legal Sex Female 12:43 AM EST Gender Identity Not on file Sexual Orientation Not on file documented as of this encounter Progress Notes * Yaneth Vuong MA - 12/21/2024 10:53 AM EDT Called and left message with office receptionist for them to make appt for pcp surgical clearance for pt to proceed with surgery on 12/28. They stated they will c/b with appt date and time. * Savannah Cordon RN - 12/20/2024 11:38 AM EDT LVM asking patient to return call. Spoke to patient and did review her medications. She will hold her Vitamins the am of her procedure. She knows that she will be NPO the midnight the night before her surgery. She will remove all her jewelry and bring her ID and insurance cards the day of her procedure. She will arrive for 10:00 on 12/28 to the 3rd floor. Her PFT appt was moved to 12/26 @ 8:15. * Yaneth Vuong MA - 12/15/2024 2:44 PM EDT Called and was able to give Chasity her appt dates and times . We did have to move Pat to 12/23/24 at 9:00 am as she stated the pcp might be able to do her clearance 12/22 so for precaution I moved the date * Yaneth Vuong MA - 12/15/2024 1:24 PM EDT Called to s/w Chasity . Unfortunatly she is still at another appointment and unable to take down thedates. So I have asked her to call once she gets home to go over them again. - PAT is on 12/22/24 at 11:00 am arrive 15 minutes prior at Patient Registration then take the elevators to the 3rd floor and check-in at the Acquisition Advisor desk. - Surgery is on 12/28/24 at 11:30 , arrival at 10:00 am and check-in at same Acquisition Advisor desk. -Chest Xray is 01/11/25 at 2:15 pm at [facility]. - Post Op 01/11/25 at 2:45 pm with Roque Reyes PA-C Pt has medicare no auth neeved documented in this encounter Plan of Treatment Upcoming Encounters Date Type Department Care Team (Late st Contact Info) Description 12/23/2024 9:00 AM EDT Pre-Admission Testing [facility] Pre-Admission Testing [address] [place] [phone] 12/26/2024 8:30 AM EDT Appointment [facility] Pulmonary [address] [place] [phone] 12/28/2024 11:30 AM EDT Hospital Encounter [facility] Main OR [address] [place] [phone] Jacquelyn Goldstein MD [address] [place] [address] 12/28/2024 11:30 AM EDT - 12/28/2024 3:30 PM EDT Surgery [facility] Main OR [address] [place] [phone] Jacquelyn Goldstein MD [address] [place] [address] Navigational bronchoscopy dye marking, Bruce right upper lobe wedge ? segment, ?lobe [50943 (CPT ) +5 more] 01/11/2025 2:45 PM EDT Office Visit Thoracic Surgery - [place] [address] [facility] [address] [place] [phone] Will Reyes PA [address] [place] [address] Scheduled Procedures Name Priority Associated Diagnoses Date/Ti me THORACOSCOPY ROBOT TWO Pulmonary nodule 12/28/2024 11:30 AM EDT documented as of this encounter Visit Diagnoses Not on filedocumented in this encounter Care Teams Elevator Repair Mechanic Relationship Specialty Start Date End Date Dona Man MD [address] [place] [address] PCP - General Internal Medicine 11/28/24 documented as of this encounter
--- OUTSIDE RECORDS SUMMARY | 2024-12-22 11:38 | XMS_ITS | Clinical Summary ---
Author Organization [facility] [address] [facility] Address [address] [place] [address] Phone Care Team Providers Care Cargo Service Supervisor Name Role Phone Dona Man MD Primary Care Provider [phone] Allergies Active Allergy Reactions Criticality Noted Date Comments Adhesive Tape-Silicones Itching 12/20/2024 LATEX TAPE Sulfa (Sulfonamide Antibiotics) 02/18 Medications calcium carbonate/elma min D3 (CALCIUM + D ORAL) 1 TAB BID Active ibuprofen (ADVIL,MOTRIN) 600 mg tablet 1 TABLET 3 TIMES DAILY Active MULTIVITAMIN ORAL None Entered Active carisoprodoL (Soma) 350 mg tablet 1 TABLET 3 TIMES DAILY NEEDED 6 025 Discontinued varenicline (CHANTIX CIERA) 0.5 mg (11)- 1 mg (42) tablet use as directed 0 025 Discontinued Active Problems Problem Noted Date Diagnosed Date [...] 9:15 AM EDT Consult Thoracic Surgery - [address] [phone] Jacquelyn Goldstein MD Pulmonary nodule (Primary Dx); Lung nodule; Smoker; Neoplasm 12/15/2024 Telephone Thoracic Surgery - [address] [phone] Yaneth Vuong [place] 12/05/2024 Telephone Lung Screening Program - [address] [phone] Radha Fair [place] 11/29/2024 10:24 AM EDT - 11/29/2024 11:59 PM EDT Hospital Encounter CT Scan [address] [place] [phone] Encounter for screening for lung cancer; Former smoker Discharge Disposition: Home or Self Care 11/29/2024 10:15 AM EDT Office Visit Lung Screening Program - [address] [phone] Yamila Villareal NP Encounter for screening for malignant neoplasm of lung in former smoker who quit in past 15 years with 30 pack year history or greater (Primary Dx) from Last 3 Months Immunizations Name Administration Dates Next Due Influenza trivalent, with pr eservative (Fluzone; Afluria) 6mo and older 02/15/2007,04/04/2005,02/23/2003 Surgical History Surgery Date Site/Laterality Comments OTHER SURGICAL HISTORY PROCEDURE: VT OSTEOTOMY SPINE PST/PSTLAT APPR 1 VRT SGM CRV; COMMENT: Fusion COLONOSCOPY W/ POLYPECTOMY 10/05/2006 PROCEDURE: VT COLSC FLX W/RMVL OF TUMOR POLYP LESION [...] Description 12/23/2024 9:00 AM EDT Pre-Admission Testing [facility] Pre-Admission Testing [address] [place] [phone] 12/26/2024 8:30 AM EDT Appointment Pulmonary [address] [place] [phone] 12/28/2024 11:30 AM EDT Hospital Encounter Main OR [address] [place] [phone] Jacquelyn Goldstein MD [address] [place] [address] 12/28/2024 11:30 AM EDT - 12/28/2024 3:30 PM EDT Surgery Main OR [address] [place] [phone] Jacquelyn Goldstein MD [address] [place] [address] Navigational bronchoscopy dye marking, daVinci right upper lobe wedge ? segment, ?lobe [54674 (CPT ) +5 more] 01/11/2025 2:45 PM EDT Office Visit Thoracic Surgery - [place] [address] [facility] [address] [place] [phone] Will Reyes, PA [address] [place] [phone] Scheduled Procedures Name Priority Associated Diagnoses Date/Ti [...] Signed Date: 12/02/2024 10:33 ET Workstation ID: [id number] Transcribed By: Self Edit Transcribed Date: 12/02/2024 10:20 ET Narrative 12/02/2024 10:33 AM EDT EXAMINATION: CT CHEST WITHOUT CONTRAST LUNG CANCER SCREENING, LOW DOSE CLINICAL INFORMATION: Lung cancer screening. Current smoker. COMPARISON: None TECHNIQUE: Multidetector CT. Examination of the chest. Examination of the chest without IV contrast. Reformatting in the coronal and sagittal planes. Device: [employer] VCT DLP: 104 mGy-cm CTDI: 3.22 Dose [...] joint on each side Jacquelyn Goldstein MD IMG CT PROCEDURES Final Result * (ABNORMAL) Lipid [...] Recently Relevant to Health Maintenance Insurance MEDICARE [facility] Care Teams Cargo Service Supervisor Relationship Specialty Start Date End Date Dona Man MD [address] [facility] [place] [address] PCP - General Internal Medicine 11/28/24
--- OUTSIDE RECORDS SUMMARY | 2024-12-22 11:38 | XMS_ITS | Encounter Summary ---
Author Organization [facility] Address [address] [place] [phone] Phone Care Team Providers Care Retirement Administrator Name Role Phone Johanne Gupta MD Primary Care Provider Encounter Details Date Type Department Care Team (Late st Contact Info) Description 11/20/2017 Ancillary Orders [facility] Radiology [place] [address] Johanen Gupta MD [address] [place] [phone] [email or web address] Screening breast examination Social History Tobacco Use [...] target duedate for the next mammogram. Result [facility] Johanne Gupta MD IMG MG EXAMS Final Result documented in this encounter Visit Diagnoses Diagnosis Screening breast examination Other screening breast examination Screening breast examination Other screening breast examination documented in this encounter Care Teams Retirement Administrator Relationship Specialty Start Date End Date Johanne Gupta MD [address] [place] [phone] [email or web address] PCP - General Gastroenterology 11/05/17 documented as of this encounter Additional Source Comments The information contained in this document represents components of the legal health record. It is not the complete legal health record.[facility]
--- OUTSIDE RECORDS SUMMARY | 2024-12-22 11:39 | XMS_ITS | Clinical Summary ---
Author Organization [facility] Address [address] [employer] [address] [phone] Phone Care Team Providers Care Clay Thrower Name Role Phone Johanne Gupta MD Primary [...] VACCINE (1 - 1-dose 75+ series) 2023 INFLUENZA VACCINE (#1) 2024 , 12/09/2019, 03/12/2018, Additional history exists COVID-19 VACCINE ( - 2024- season) 2024 02/28/2021, 06/29/2020, 06/06/2020 ZOSTER VACCINES Completed 06/07/2021, 03/22/2021 HEPATITIS A [...] EST) CHOLESTEROL 210(Abnor amelia H) <200 mg/dL [facility] TRIGLYCERIDES 99 0 - 200 mg/dL [facility] LDL CHOLESTEROL, CALCULATED 134(Abnor amelia H) <130 mg/dL [facility] Comment: LDL REFERENCE RANGES ADULT LEVELS RECOMMENDED (DESIRABLE) <130 MG/DL RISK LEVEL 130-159 MG/DL RISK INDICATOR >160 MG/DL HDL CHOLESTEROL 56 mg/dL [facility] Comment: HDL REFERENCE RANGES MALE FEMALE FAVORABLE >55 MG/DL > 65 MG/DL RISK LEVEL 35 - 55 MG/DL 45 - 65 MG/DL RISK INDICATOR <35 MG/DL <45 MG/DL 05/16/2016 9:09 AM EST 05/16/2016 9:18 AM EST us Conversion Provider Not In Sys LAB BLOOD ORDERAB LES Final Result [facility] [address] [place] [address], [facility] * COLONOSCOPY FOR RESULT ENTRY ONLY (10/06/2013) Colonoscopy History of diverticulo sis, history of polyps and rectal bleeding. rpt 5 yrs us Historical Provider HEALTH MAINTENANCE Final Result from Last 3 Months or Most Recently Relevant to Health Maintenance Insurance MEDICARE PART A & B [facility] TOTAL CHOICE INDEMNITY MEDICARE PART A & B [employer] TOTAL CHOICE INDEMNITY MEDICARE PART A & B [employer] TOTAL CHOICE INDEMNITY MEDICARE PART A & B [facility] TOTAL CHOICE INDEMNITY MEDICARE PART A & B [facility] TOTAL CHOICE INDEMNITY MEDICARE PART A & B [facility] TOTAL CHOICE INDEMNITY MEDICARE PART A & B [employer] TOTAL CHOICE INDEMNITY MEDICARE PART A & B [employer] TOTAL CHOICE INDEMNITY MEDICARE PART A & B [facility] TOTAL CHOICE INDEMNITY Care Teams Clay Thrower Relationship Specialty Start Date End Date Johanne Gupta MD [address] [place] [phone] [email or web address] PCP - General Gastroenterology 11/05/17 Additional Source Comments The information contained in this document represents components of the legal health record. It is not the complete legal health record.[facility]
--- OUTSIDE RECORDS SUMMARY | 2024-12-22 11:39 | XMS_ITS | Encounter Summary ---
Author Organization [facility] Address [address] [place] [phone] Phone Care Team Providers Care Courseware Developer Name Role Phone Johanne Gupta MD Primary Care Provider Reason for Referral * MRI/CAT Scan - Closed Specialty Diagnoses / Procedures Referred By Anshul navarrete Referred To Contact Radiology Diagnoses Persistent cough Procedures CT Chest Johanne Gupta MD Phone: tel: fax: mailto:[email or web address] Referral ID Status Reason Start Date Expiration Date Visits Re quested Visits Authorized [id number] Closed 11/16/2017 11/18/2018 1 1 Encounter Details Date Type Department Care Team (Late st Contact Info) Description 11/16/2017 Ancillary Orders [facility] [place] [address] Johanne Gupta MD [address] [place] [phone] [email or web address] Persistent cough Social History Tobacco Use Types [...] This report has been forwarded to an [employer] communication system whichwill electronically notify appropriate providers of potentially importantfindings. Johanne Gupta MD [facility] CT CHEST Final Result documented in this encounter Visit Diagnoses Diagnosis Persistent cough Persistent cough documented in this encounter Care Teams Courseware Developer Relationship Specialty Start Date End Date Johanne Gupta MD [address] [place] [phone] [email or web address] PCP - General Gastroenterology 11/05/17 documented as of this encounter Additional Source Comments The information contained in this document represents components of the legal health record. It is not the complete legal health record.[facility]
--- OUTSIDE RECORDS SUMMARY | 2024-12-22 11:39 | XMS_ITS | Encounter Summary ---
Author Organization [facility] Address [address] [place] [phone] Phone Care Team Providers Care Ground Support Equipment Fitter Name Role Phone Unknown, Unknown Primary Care Provider Teja Salmon MD Primary Care Provider [phone] Johanne Gupta MD Primary Care Provider Reason for Referral * MRI/CAT Scan - Closed Specialty Diagnoses / Procedures Referred By Anshul navarrete Referred To Contact Radiology Diagnoses Pain Procedures MRI Cervical Spine MRI Neck Johanne Gupta MD Phone: tel: fax: mailto:[email or web address] Referral ID Status Reason Start Date Expiration Date Visits Re quested Visits Authorized [id number] Closed 08/12/2016 11/19/2016 1 1 Encounter Details Date Type Department Care Team (Late st Contact Info) Description 08/12/2016 Ancillary Orders [facility] [place] [address] Johanne Gupta MD [address] [place] [phone] [email or web address] Social History Tobacco Use Types Packs/Day [...] providers of potentially importantfindings. Johanne Gupta MD [facility] MR XSPECIALTY Jen l Result documented in this encounter Visit Diagnoses Diagnosis Pain Generalized pain Pain Generalized pain documented in this encounter Care Teams Ground Support Equipment Fitter Relationship Specialty Start Date End Date Unknown, Unknown, MD PCP - General 01/26/14 09/01/16 Teja Ambrosio MD [address] [place] [phone] [email or web address] PCP - General Internal Medicine 09/02/16 11/04/17 Johanne Gupta MD [address] [place] [address] [email or web address] PCP - General Gastroenterology 11/05/17 documented as of this encounter Additional Source Comments The information contained in this document represents components of the legal health record. It is not the complete legal health record.[facility]
--- OUTSIDE RECORDS SUMMARY | 2024-12-22 11:39 | XMS_ITS | Encounter Summary ---
Author Organization [facility] Address [address] [place] [address] Phone Care Team Providers Care Trim Master Operator Name Role Phone Teja Ambrosio MD Primary Care Provider [phone] Johanne Gupta MD Primary Care Provider Encounter Details Date Type Department Care Team (Late st Contact Info) Description 09/02/2016 Transcribe Orders [facility] [place] [address] Madison Dugan, RN [facility] [address] [place] [address] Pre-op exam (Primary Dx) Social History Tobacco [...] exam documented in this encounter Care Teams Trim Master Operator Relationship Specialty Start Date End Date Teja Ambrosio MD [address] [place] [address] [email or web address] PCP - General Internal Medicine 09/02/16 11/04/17 Johanne Gupta MD [address] [place] [address] [email or web address] PCP - General Gastroenterology 11/05/17 documented as of this encounter Additional Source Comments The information contained in this document represents components of the legal health record. It is not the complete legal health record.[facility]
--- OUTSIDE RECORDS SUMMARY | 2024-12-22 11:39 | XMS_ITS | Encounter Summary ---
Author Organization [facility] Address [address] [place] [address] Phone Care Team Providers Care Blow Off Worker Name Role Phone Teja Ambrosio MD Primary Care Provider [phone] Johanne Gupta MD Primary Care Provider Encounter Details Date Type Department Care Team (Late st Contact Info) Description 12/12/2016 Ancillary Orders [facility] [place] [address] Orlando Higgins, PA [address] [place] [address] [email or web address] Foraminal stenosis of lumbar region Social History [...] region documented in this encounter Care Teams Blow Off Worker Relationship Specialty Start Date End Date Teja Ambrosio MD [address] [place] [address] [place] [phone] .[employer] PCP - General Internal Medicine 09/02/16 11/04/17 Johanne Gupta MD [address] [place] [address] [email or web address] PCP - General Gastroenterology 11/05/17 documented as of this encounter Additional Source Comments The information contained in this document represents components of the legal health record. It is not the complete legal health record.[facility]
--- OUTSIDE RECORDS SUMMARY | 2024-12-22 11:39 | XMS_ITS | Encounter Summary ---
Author Organization [facility] Address [address] [facility] [address] [place] [address] Phone Care Team Providers Care Violin Tutor Name Role Phone Johanne Gupta MD Primary Care Provider Encounter Details Date Type Department Care Team (Late st Contact Info) Description 11/16/2017 Procedure Pass [facility] [place] [address] Social History Tobacco Use Types Packs/Day Years [...] on filedocumented in this encounter Care Teams Violin Tutor Relationship Specialty Start Date End Date Johanne Gupta MD [address] [place] [address] [email or web address] PCP - General Gastroenterology 11/05/17 documented as of this encounter Additional Source Comments The information contained in this document represents components of the legal health record. It is not the complete legal health record.[facility]
== END 2024-12-22 11:20 | disposition home or self-care (01) ==
LOC: HO.HMCC 10:19
PROVIDERS: PCP Internal Medicine; Visit Provider Internal Medicine
DX: I10 Essential (primary) hypertension (principal); R91.1 Solitary pulmonary nodule

== ENCOUNTER → 2024-12-22 10:18 | Outpatient (BNVA) | payer MEDICARE, OTHER, SELFPAY | PROVIDERS: PCP Internal Medicine; Visit Provider Internal Medicine | DX: I10 Essential (primary) hypertension (principal); R91.1 Solitary pulmonary nodule | CPT/HCPCS: 99212 ==

== ENCOUNTER 2024-12-27 10:48 | Outpatient (AMB) | payer MEDICARE, OTHER, SELFPAY ==
--- OUTSIDE RECORDS SUMMARY | 2024-12-26 08:09 | XMS_ITS | Encounter Summary ---
Author Organization [facility] Address [address] [place] [address] Care Team Providers Care Deputy Prosecuting Attorney Name Role Phone Dona Man MD Primary Care Provider [phone] Reason for Referral * Therapy (Emergency) - Authorized Specialty Diagnoses / Procedures Referred By Contac t Referred To Contact Pulmonology Diagnoses Lung nodule Procedures Pulmonary function testing: Carbon Monoxide Diffusing Capacity, Spirometry with Bronchodilator, Plethysmography Yamila Villareal NP [address] [address] Phone: tel: fax: [facility] Pulmonary [address] [place] [phone] Phone: tel: Referral ID Status Reason Start Date Expiration Date V isits Requested Visits Authorized [id number] Authorized 12/05/2024 12/05/2025 1 1 Reason for Visit * Therapy (Emergency) - Authorized Specialty Diagnoses / Procedures Referred By Contac t Referred To Contact Pulmonology Diagnoses Lung nodule Procedures Pulmonary function testing: Carbon Monoxide Diffusing Capacity, Spirometry with Bronchodilator, Plethysmography Yamila Villareal NP [address] [address] Phone: tel: fax: [facility] Pulmonary [address] [place] [address] Phone: tel: Referral ID Status Reason Start Date Expiration Date V isits Requested Visits Authorized [id number] Authorized 12/05/2024 12/05/2025 1 1 Encounter Details Date Type Department Care Team (Late st Contact Info) Description 12/26/2024 8:09 AM EDT Hospital Encounter [facility] Pulmonary [address] [place] [phone] Lung nodule Social History Tobacco Use Types Packs/Day Years [...] as of this encounter Plan of Treatment Upcoming Encounters Date Type Department Care Team (Late Contact Info) Description 12/28/2024 11:30 AM EDT Hospital Encounter [facility] Main OR [address] [place] [phone] Jacquelyn Goldstein MD [address] [place] [phone] 12/28/2024 11:30 AM EDT - 12/28/2024 3:30 PM EDT Surgery [address] [phone] Jacquelyn Goldstein MD [address] [place] [phone] Navigational bronchoscopy dye marking, Bruce right upper lobe wedge ? segment, ?lobe [86330 (CPT ) +5 more] 01/11/2025 2:45 PM EDT Office Visit Thoracic Surgery - [place] [address] [phone] Will Reyes PA [address] [place] [phone] Scheduled Procedures Name Priority Associated Diagnoses Date/Ti me THORACOSCOPY ROBOT TWO Pulmonary nodule 12/28/2024 11:30 AM EDT documented as of this encounter Procedures Procedure Name Priority Date/Time Associated Diagnosis Comments HC SPIROMETRY BRONCHODILATION RESPONSIVENESS PRE/POST BRONCHODILATOR ADMINISTRATION STAT 12/26/2024 9:28 AM EDT Lung nodule documented in this encounter Results * Pulmonary function testing: Carbon Monoxide Diffusing Capacity, Spirometry with Bronchodilator, Plethysmography (12/26/2024 9:28 AM EDT) Narrative Yolande Sinclair MD - 12/26/2024 7:36 PM EDT Table formatting from the original result was not included. Images from the original result were not included. [facility] [address] [place] [address] Pulmonary Functions Report Date of service: 12/26/24 Patient Name: Chasiyt Mae Date of : 1950 Age: 74 y.o. Gender: female Ordering Provider: Yamila Villareal NP Diagnosis listed on Order: Lung nodule Reason for Exam: Order Questions Answers Reason for Exam: pulmonary nodule. Preop workup. Which PFTs would you like to perform? Carbon Monoxide Diffusing Capacity,Spirometry with Bronchodilator,Plethysmography SPIROMETRY: FEV1 is 73 % predicted and an FVC is 84 % predicted. The FEV1/FVC ratio is 86% of normal, no response to bronchodilators noted. LUNG VOLUMES: Total lung capacity (TLC): 79% predicted. Residual volume (RV): 82% predicted RV/TLC ratio is 104% of normal DIFFUSION CAPACITY: DLCO 52% predicted. DlCO/VA 64% of predicted COMPARISONS: INTERPRETATION: This pulmonary function test shows moderate obstructive lung disease with corresponding decline in the diffusion capacity. There is slight decrease in total lung capacity, this suggest possible concurrent restrictive changes Yolande Sinclair MD Yamila Villareal NP PFT ORDERABLES Final Resul t documented in this encounter Visit Diagnoses Diagnosis Pulmonary nodule- Primary Other diseases of lung, not elsewhere classified Lung nodule Other diseases of lung, not elsewhere classified Pulmonary nodule Other diseases of lung, not elsewhere classified documented in this encounter Administered Medications Inactive Administered Medications - up to 3 most recent administrations Medication Order MAR Action Action Date Dose Rate Site albuterol 2.5 mg /3 mL (0.083 %) nebulizer solution 2.5 mg 2.5 mg, nebulization, Once, On 12/26/24 at 0830, For 1 dose Given 12/26/2024 9:30 AM EDT 2.5 mg documented in this encounter Orders Medications Ordered That Angel ht Not Have Been Administered Count Last Ordered Date First Ordered Date albuterol 2.5 mg /3 mL (0.08 3 %) nebulizer solution 2.5 mg 1 12/26/2024 documented in this encounter Care Teams Deputy Prosecuting Attorney Relationship Specialty Start Date End Date Dona Man MD [facility] [place] [address] PCP - General Internal Medicine 11/28/24 documented as of this encounter
--- NOTE | 2024-12-27 11:03 | A.OFFPC_ITS ---
Vital Signs 12/27/24 11:12 Height 5 ft Weight 127 lb BMI 24.8 BP 130/80 Blood Pressure Location Rt brachial Position Sitting Respiration 19 Pulse 67 Pulse Source Pulse Oximeter Temp 98.3 F Temp Source Oral Pulse Oximetry (%) 96 Oxygen Delivery Method Room Air Intake Visit Reasons: bp check Allergies Sulfa (Sulfonamide Antibiotics) Allergy (Unknown, Verified 12/27/24 11:15) fever and redness sulfamethoxazole (From Bactrim) Allergy (Unknown, Verified 12/27/24 11:15) unknown trimethoprim (From Bactrim) Allergy (Unknown, Verified 12/27/24 11:15) unknown adhesive tape Allergy (Verified 12/27/24 11:15) Rash Medication List - Last Reconciled 12/27/24 by Dona Man MD albuterol sulfate 90 mcg/actuation 2 puffs inhalation Q4-6H PRN 30 days cholecalciferol (vitamin D3) 50 mcg PO DAILY hydrocortisone 2.5% 1 appl topical BID PRN 7 days lactobacillus combination no.9 (Adult 50 Plus Probiotic) PO meloxicam 15 mg PO DAILY PRN metoprolol succinate ER 50 mg PO DAILY naproxen sodium (Aleve) 220 mg PO Q12H PRN Tobacco use date assessed: 12/22/24 Fall risk assessment: No Falls in past year Dental Screening Dental Screen Date: 12/22/24 HPI bp check HPI Details Pt presents for f/u HTN. She has been tolerating metoprolol well and denies side effects. Patient reports for blood pressure readings at home at 120/70 with a heart rate in low 80s PFSH Medical History Colon cancer screening Nausea vomiting and diarrhea Lumbar spinal stenosis Annual physical exam Fatigue Hyperlipidemia History of mammogram Surgical History H/O colonoscopy S/P cervical spinal fusion Family History Father No problems noted. Mother Hypertension Social History Housing: House Alcohol intake: current Alcohol intake frequency: a few times a week Patient Tobacco Use Status: Former Tobacco user e-Cigarette/Vaping Use: Never Used Second Hand Smoke Exposure: No service: No Current occupational status: employed Current occupation: [employer] Current occupational exposures/hazards: No Cognitive needs: No Hearing needs: No Vision needs: Yes Questionnaire PHQ-9 Over the last 2 weeks, how often have you been bothered by any of the following problems? 1. Little interest or pleasure in doing things: not at all 2. Feeling down, depressed, or hopeless: not at all 3. Trouble falling or staying asleep, or sleeping too much: not at all 4. Feeling tired or having little energy: not at all 5. Poor appetite or overeating: not at all 6. Feeling bad about yourself - or that you are a failure or have let yourself or your family down: not at all 7. Trouble concentrating on things, such as reading the newspaper or watching television: not at all 8. Moving or speaking so slowly that other people could have noticed. Or the opposite - being so fidgety or restless that you have been moving around a lot more than usual: not at all 9. Thoughts that you would be better off or of hurting yourself in some way: not at all Total score: 0 Depression Screening Interpretation: Negative Depression Screening Done: Yes 94850 - PHQ-9 Billing: Patient declined-do not bill Source: Developed by Drs. Devin Mccoy, Lakisha Buck, Karl Mcgowan and colleagues, with an educational diamante from [employer]. Thrive Questionnaire Date Thrive assessed: 12/27/24 I am a: Patient What is your living situation today?: I have a steady place to live Within the past 12 months, did the food you bought not last and you didn't have the money to get more?: Never true Within the past 12 months, did you worry whether your food would run out before you got money to buy more?: Never true Do you have trouble paying for medicines?: No Do you have trouble getting transportation to medical appointments?: No Do you have trouble paying your heating and electricity bill?: No Do you have trouble taking care of your child, family member or friend?: No Do you have trouble with day-to-day activities such as bathing, preparing meals, shopping, managing finances, etc.?: No Are you currently unemployed and looking for a job?: No Are you interested in more education?: Yes Please select the resources that you would like help with: Education Currently or been in a relationship where the following occur: No concerns reported THRIVE Score: 0 DIETER-7 AMB Questionnaire DIETER-7 Date DIETER - 7 assessed: 12/27/24 Feeling nervous, anxious, or on edge: 0 = Not at all Not being able to stop or control worryin = Not at all Worrying too much about different things: 0 = Not at all Trouble relaxin = Not at all Being so restless that it is hard to sit still: 0 = Not at all Becoming easily annoyed or irritable: 0 = Not at all Feeling afraid as if something awful might happen: 0 = Not at all Total DIETER-7 score (0-4 normal; 5-9 mild; 10-14 moderate; 15-21 severe): 0 Source: Developed by Drs. Devin Mccoy, Lakisha Buck, Karl Mcgowan and colleagues, with an educational diamante from [employer]. DIETER-7 Assessment Billing DIETER-7 Assessment Tool: DIETER-7 Assessment 92038 Review of Systems Const All systems reviewed & are unremarkable except as noted in HPI and below Eyes Reports no additional complaints Card Reports no additional complaints Resp Reports no additional complaints GI Reports no additional complaints Physical exam (Primary Care) Vital Signs: Last Vital Signs Temp 98.3 F 12/27/24 11:12 Pulse 67 12/27/24 11:12 Resp 19 12/27/24 11:12 Pulse Ox 96 12/27/24 11:12 Oxygen Delivery Method Room Air 12/27/24 11:12 BMI result Body Mass Index 24.8 Tobacco/Smoking Status: Tobacco use Status Tobacco use date assessed 12/22/24 12/27/24 11:05 Patient Tobacco Use Status Former Tobacco user 12/27/24 11:05 e-Cigarette/Vaping Use Never Used 12/27/24 11:05 PHQ-9: PHQ-9 Score PHQ-9: Total score 0 12/27/24 11:18 Depression Screening Interpretation: Negative Thrive Assessment: Date of Thrive Assessment Date Thrive assessed 12/27/24 12/27/24 11:18 Currently or been in a relationship where the following occur: No concerns reported Const General: no acute distress Resp Effort & Inspection: normal respiratory effort Auscultation: clear to auscultation bilaterally Cardio Rhythm: regular rhythm Heart sounds: S1 normal heart sound present and S2 normal heart sound present Coding Level of Care Code Est Pt Level 3 (91200) Diagnoses HTN (hypertension) I10 Additional Codes DIETER-7 Assessment Billing - DIETER-7 Assessment Tool: DIETER-7 Assessment 70446 ([id number]) Assessment & Plan Assessment & Plan (1) HTN (hypertension): Code(s): I10 - Essential (primary) hypertension Category: Medical Plan: Continue metoprolol, follow-up in 1 month Medications: Refilled metoprolol succinate ER 50 mg PO DAILY 30 tabs 1RF
[2024-12-27 11:12] VITALS: BP 130/80; PULSE 67; RESP 19; TEMP 36.8; O2SAT 96; BMI 24.8
--- OUTSIDE RECORDS SUMMARY | 2024-12-27 13:01 | XMS_ITS | Encounter Summary ---
Author Organization [facility] Address [address] [place] [address] Phone Care Team Providers Care Rn Concurrent Review Name Role Phone Unknown, Unknown Primary Care Provider Teja Salmon MD Primary Care Provider [phone] Johanne Gupta MD Primary Care Provider Reason for Referral * MRI/CAT Scan - Closed Specialty Diagnoses / Procedures Referred By Anshul navarrete Referred To Contact Radiology Diagnoses Pain Procedures MRI Cervical Spine MRI Neck Johanne Gupta MD Phone: tel: fax: [email or web address] Referral ID Status Reason Start Date Expiration Date Visits Re quested Visits Authorized [id number] Closed 08/12/2016 11/19/2016 1 1 Encounter Details Date Type Department Care Team (Late st Contact Info) Description 08/12/2016 Ancillary Orders [facility] [place]iology [place] [address] Johanne Gupta MD [address] [place] [address] [email or web address] Pain Social History Tobacco Use Types [...] providers of potentially importantfindings. Johanne Gupta MD [facility] MR XSPECIALTY Jen l Result documented in this encounter Visit Diagnoses Diagnosis Pain Generalized pain Pain Generalized pain documented in this encounter Care Teams Rn Concurrent Review Relationship Specialty Start Date End Date Unknown, Unknown, MD PCP - General 01/26/14 09/01/16 Teja Ambrosio MD [address] [place] [address] [email or web address] PCP - General Internal Medicine 09/02/16 11/04/17 Johanne Gupta MD [address] [place] [address] [email or web address] PCP - General Gastroenterology 11/05/17 documented as of this encounter Additional Source Comments The information contained in this document represents components of the legal health record. It is not the complete legal health record.[facility]
--- OUTSIDE RECORDS SUMMARY | 2024-12-27 13:01 | XMS_ITS | Encounter Summary ---
Author Organization [facility] Address [address] [place] [address] Phone Care Team Providers Care Division Controller Name Role Phone Teja Ambrosio MD Primary Care Provider [phone] Johanne Gupta MD Primary Care Provider Encounter Details Date Type Department Care Team (Late st Contact Info) Description 12/12/2016 Ancillary Orders [facility] [place]iology [place] [address] [place] Higgins, PA [address] [place] [phone] [email or web address] Foraminal stenosis of lumbar region Social History [...] region documented in this encounter Care Teams Division Controller Relationship Specialty Start Date End Date Teja Ambrosio MD [address] [place] [address] [place] [phone] [email or web address] PCP - General Internal Medicine 09/02/16 11/04/17 Johanne Gupta MD [address] [place] [address] [email or web address] PCP - General Gastroenterology 11/05/17 documented as of this encounter Additional Source Comments The information contained in this document represents components of the legal health record. It is not the complete legal health record.[facility]
--- OUTSIDE RECORDS SUMMARY | 2024-12-27 13:01 | XMS_ITS | Clinical Summary ---
Author Organization [facility] Address [address] [address] Phone Care Team Providers Care Detail Manager Name Role Phone Johanne Gupta MD [...] EST) CHOLESTEROL 210(Abnor amelia H) <200 mg/dL [facility] TRIGLYCERIDES 99 0 - 200 mg/dL [facility] LDL CHOLESTEROL, CALCULATED 134(Abnor amelia H) <130 mg/dL [facility] Comment: LDL REFERENCE RANGES ADULT LEVELS RECOMMENDED (DESIRABLE) <130 MG/DL RISK LEVEL 130-159 MG/DL RISK INDICATOR >160 MG/DL HDL CHOLESTEROL 56 mg/dL [facility] Comment: HDL REFERENCE RANGES MALE FEMALE FAVORABLE >55 MG/DL > 65 MG/DL RISK LEVEL 35 - 55 MG/DL 45 - 65 MG/DL RISK INDICATOR <35 MG/DL <45 MG/DL 05/16/2016 9:09 AM EST 05/16/2016 9:18 AM EST us Conversion Provider Not In Sys LAB BLOOD ORDERAB LES Final Result [facility] [address] [place] [address], [facility] * COLONOSCOPY FOR RESULT ENTRY ONLY (10/06/2013) Colonoscopy History of diverticulo sis, history of polyps and rectal bleeding. rpt 5 yrs us Historical Provider HEALTH MAINTENANCE Final Result from Last 3 Months or Most Recently Relevant to Health Maintenance Insurance MEDICARE PART A & B [facility] TOTAL CHOICE INDEMNITY MEDICARE PART A & B [employer] TOTAL CHOICE INDEMNITY MEDICARE PART A & B [employer] TOTAL CHOICE INDEMNITY MEDICARE PART A & B [facility] TOTAL CHOICE INDEMNITY MEDICARE PART A & B [facility] TOTAL CHOICE INDEMNITY MEDICARE PART A & B [facility] TOTAL CHOICE INDEMNITY MEDICARE PART A & B [employer] TOTAL CHOICE INDEMNITY MEDICARE PART A & B [employer] TOTAL CHOICE INDEMNITY MEDICARE PART A & B [facility] TOTAL CHOICE INDEMNITY Care Teams Detail Manager Relationship Specialty Start Date End Date Johanne Gupta MD [address] [place] [phone] [email or web address] PCP - General Gastroenterology 11/05/17 Additional Source Comments The information contained in this document represents components of the legal health record. It is not the complete legal health record.[facility]
--- OUTSIDE RECORDS SUMMARY | 2024-12-27 13:01 | XMS_ITS | Encounter Summary ---
Author Organization [facility] Address [address] [place] [address] Phone Care Team Providers Care Cheese Blender Name Role Phone Johanne Gupta MD Primary Care Provider Reason for Referral * MRI/CAT Scan - Closed Specialty Diagnoses / Procedures Referred By Anshul navarrete Referred To Contact Radiology Diagnoses Persistent cough Procedures CT Chest Johanne Gupta MD Phone: tel: fax: mailto:[email or web address] Referral ID Status Reason Start Date Expiration Date Visits Re quested Visits Authorized [id number] Closed 11/16/2017 11/18/2018 1 1 Encounter Details Date Type Department Care Team (Late st Contact Info) Description 11/16/2017 Ancillary Orders [facility] [place] [address] Johanne Gupta MD [address] [place] [phone] [email or web address] Persistent cough Social History Tobacco Use [...] This report has been forwarded to an [employer] communication system whichwill electronically notify appropriate providers of potentially importantfindings. Johanne Gupta MD [facility] CT CHEST Final Result documented in this encounter Visit Diagnoses Diagnosis Persistent cough Persistent cough documented in this encounter Care Teams Cheese Blender Relationship Specialty Start Date End Date Johanne Gupta MD [address] [place] [address] [email or web address] PCP - General Gastroenterology 11/05/17 documented as of this encounter Additional Source Comments The information contained in this document represents components of the legal health record. It is not the complete legal health record.[facility]
--- OUTSIDE RECORDS SUMMARY | 2024-12-27 13:01 | XMS_ITS | Clinical Summary ---
Author Organization [facility] 299 [facility] Address [address] [place] [address] Phone Care Team Providers Care Grinder Machine Knife Setter Name Role Phone Dona Man MD Primary Care Provider [phone] Allergies Active Allergy Reactions Criticality Noted Date Comments Adhesive Tape-Silicones Itching 12/20/2024 LATEX TAPE Sulfa (Sulfonamide Antibiotics) 02/18 Medications calcium carbonate/elma min D3 (CALCIUM + D ORAL) 1 TAB BID Active ibuprofen (ADVIL,MOTRIN) 600 mg tablet 1 TABLET 3 TIMES DAILY Active MULTIVITAMIN ORAL None Entered Active meloxicam (MOBIC) 15 mg tablet Take 1 tablet (15 mg total) by mouth 1 (one) time each day if needed for moderate pain. Active metoprolol succinate (TOPROL-XL) 50 mg 24 hr tablet Take 1 tablet (50 mg total) by mouth 1 (one) time each day. Do not crush or chew. Active carisoprodoL (Soma) 350 mg tablet 1 [...] Encounters Date Type Department Care Team Description 12/26/2024 8:09 AM EDT Hospital Encounter [facility] Pulmonary [address] [place] [address] Lung nodule 12/15/2024 9:15 AM EDT Consult Thoracic Surgery - [place] [address] [phone] Jacquelyn Goldstein MD Pulmonary nodule (Primary Dx); Lung nodule; Smoker; Neoplasm 12/15/2024 Telephone Thoracic Surgery - [address] [phone] Yaneth Vuong [place] 12/05/2024 Telephone Lung Screening Program - [place] [address] [phone] Radha Fair [place] 11/29/2024 10:24 AM EDT - 11/29/2024 11:59 PM EDT Hospital Encounter [facility] CT Scan [address] [place] [address] Encounter for screening for lung cancer; Former smoker Discharge Disposition: Home or Self Care 11/29/2024 10:15 AM EDT Office Visit Lung Screening Program - [place] [address] [phone] Yamila Villareal NP Encounter for screening for malignant neoplasm of lung in former smoker who quit in past 15 years with 30 pack year history or greater (Primary Dx) from Last 3 Months Immunizations Name Administration Dates Next Due Influenza trivalent, with pr eservative (Fluzone; Afluria) 6mo and older 02/15/2007,04/04/2005,02/23/2003 Surgical History Surgery Date Site/Laterality Comments OTHER SURGICAL HISTORY PROCEDURE: ID OSTEOTOMY SPINE PST/PSTLAT APPR 1 VRT SGM CRV; COMMENT: Fusion COLONOSCOPY W/ POLYPECTOMY 10/05/2006 PROCEDURE: ID COLSC FLX W/RMVL OF TUMOR POLYP LESION [...] Care Team (Late st Contact Info) Description 12/28/2024 11:30 AM EDT Hospital Encounter [facility] Main OR [address] [place] [phone] Jacquelyn Goldstein MD [address] [place] [phone] 12/28/2024 11:30 AM EDT - 12/28/2024 3:30 PM EDT Surgery [facility] OR [address] [place] [phone] Jacquelyn Goldstein MD [address] [place] [phone] Navigational bronchoscopy dye marking, Bruce right upper lobe wedge ? segment, ?lobe [96114 (CPT ) +5 more] 01/11/2025 2:45 PM EDT Office Visit Thoracic Surgery - [place] [address] [facility] [address] [place] [phone] Will Reyes PA [address] [place] [phone] Scheduled Procedures Name Priority Associated Diagnoses Date/Ti [...] STAT 12/26/2024 9:28 AM EDT Lung nodule PROCEDURAL ECG Routine 12/23/2024 9:24 AM EDT Pulmonary nodule CBC WITH AUTO DIFFERENTIAL Routine 12/23/2024 9:10 AM EDT Pulmonary nodule TYPE AND SCREEN Routine 12/23/2024 9:10 AM EDT Pulmonary nodule ACTIVATED PARTIAL THROMBOPLASTIN TIME Routine 12/23/2024 9:10 AM EDT Pulmonary nodule Neoplasm PROTHROMBIN TIME WITH INR Routine 12/23/2024 9:10 AM EDT Pulmonary nodule Neoplasm CBC AND DIFFERENTIAL Routine 12/23/2024 9:10 AM EDT Pulmonary nodule BASIC METABOLIC PANEL Routine 12/23/2024 9:10 AM EDT Pulmonary nodule CT LUNG SCREENING Routine 11/29/2024 10: 32 AM EDT Encounter for screening for lung cancer Former smoker LIPID PANEL Routine 07/13/2007 from Last 3 Months or Most Recently Relevant to Health Maintenance Results * Pulmonary function testing: Carbon Monoxide Diffusing Capacity, Spirometry with Bronchodilator, Plethysmography (12/26/2024 9:28 AM EDT) Narrative Yolande Sinclair MD - 12/26/2024 7:36 PM EDT Table formatting from the original result was not included. Images from the original result were not included. [facility] Pulmonary Lab [address] [place], [place] [phone] Pulmonary Functions Report Date of service: 12/26/24 Patient Name: Chasity Steele Date of : 1950 Age: 74 y.o. [...] possible concurrent restrictive changes Yolande Sinclair MD us Yamila Villareal NP PFT ORDERABLES Final Resul t * ECG 12 lead - Procedural (No Charge) (12/23/2024 9:24 AM EDT) Pathologist [facility] Ventricular Rate ECG 62 BPM GEMUSE Atrial Rate 62 BPM GEMUSE P-R Interval 134 ms GEMUSE QRS Duration 76 ms GEMUSE Q-T Interval 402 ms GEMUSE QTc 408 ms GEMUSE P Wave Oley 30 degrees GEMUSE R Oley 26 degrees GEMUSE T Oley 47 degrees GEMUSE ECG Interpretation Normal sinus rhythm Low voltage QRS Borderline ECG No previous ECGs available Confirmed by DEENA URIBE ([id number]) on 12/23/2024 11:08:48 PM GEMUSE 12/23/2024 9:24 AM EDT 12/23/2024 11:08 PM EDT us Jacquelyn Goldstein MD ECG ORDERABLES Final Result GEMUSE * CBC auto differential (12/23/2024 9:10 AM EDT) Pathologist [facility] WBC 6.6 4.8 - 10.8 K/mcL LAB HEMETOLOGY METHOD 12/23/2024 9:40 AM EDT [facility] RBC 4.60 3.80 - 4.80 M/mcL LAB HEMETOLOGY METHOD 12/23/2024 9:40 AM EDT [facility] Hemoglobin 12.9 11.5 - 16.0 g/dL LAB HEMETOLOGY METHOD 12/23/2024 9:40 AM EDT [facility] Hematocrit 39.8 35.0 - 47.0 % LAB HEMETOLOGY METHOD 12/23/2024 9:40 AM [facility] MCV 87.5 79.0 - 98.0 FL LAB HEMETOLOGY METHOD 12/23/2024 9:40 AM [facility] MCH 28.4 27.0 - 32.0 pcg LAB HEMETOLOGY METHOD 12/23/2024 9:40 AM [facility] MCHC 32.4 32.0 - 37.0 g/dL LAB HEMETOLOGY METHOD 12/23/2024 9:40 AM [facility] RDW 13.3 11.0 - 15.0 % LAB HEMETOLOGY METHOD 12/23/2024 9:40 AM [facility] Platelets 323 130 - 400 K/mcL LAB HEMETOLOGY METHOD 12/23/2024 9:40 AM [facility] MPV 9.0 7.0 - 11.0 FL LAB HEMETOLOGY METHOD 12/23/2024 9:40 AM [facility] NRBC 0.0 <1.0 % LAB HEMETOLOGY METHOD 12/23/2024 9:40 AM [facility] NRBC Absolute 0.00 <0.10 K/mcL LAB HEMETOLOGY METHOD 12/23/2024 9:40 AM [facility] Neutrophils Relative 61.1 % LAB HEMETOLOGY METHOD 12/23/2024 9:40 AM [facility] Lymphocytes Relative 26.3 % LAB HEMETOLOGY METHOD 12/23/2024 9:40 AM [facility] Monocytes Relative 8.5 % LAB HEMETOLOGY METHOD 12/23/2024 9:40 AM [facility] Eosinophils Relative 2.7 % LAB HEMETOLOGY METHOD 12/23/2024 9:40 AM [facility] Basophils Relative 0.9 % LAB HEMETOLOGY METHOD 12/23/2024 9:40 AM EDT [facility] Immature Granulocytes Relative 0.5 % LAB HEMETOLOGY METHOD 12/23/2024 9:40 AM EDT [facility] Neutrophils Absolute 4.05 1.50 - 7.00 K/[facility] LAB HEMETOLOGY METHOD 12/23/2024 9:40 AM EDT [facility] Lymphocytes Absolute 1.74 1.00 - 5.00 K/[facility] LAB HEMETOLOGY METHOD 12/23/2024 9:40 AM EDT [facility] Monocytes Absolute 0.56 0.20 - 1.00 K/mcL LAB HEMETOLOGY METHOD 12/23/2024 9:40 AM EDT [facility] Eosinophils Absolute 0.18 0.00 - 0.50 K/[facility] LAB HEMETOLOGY METHOD 12/23/2024 9:40 AM EDT [facility] Basophils Absolute 0.06 0.00 - 0.20 K/[facility] LAB HEMETOLOGY METHOD 12/23/2024 9:40 AM EDT [facility] Immature Granulocytes Absolute 0.03 0.00 - 0.03 K/mcL LAB HEMETOLOGY METHOD 12/23/2024 9:40 AM T [facility] Blood Venous blood specimen / Unknown Venipuncture / Unknown 12/23/2024 9:10 AM EDT 12/23/2024 9:32 AM EDT us Jacquelyn Goldstein MD LAB BLOOD ORDERABLES Final Resul t [facility] [address] [place] [address], * Activated partial thromboplastin time (12/23/2024 9:10 AM EDT) aPTT 32.2 24.1 - 39.3 sec LAB COAGULATION METHOD 12/23/2024 9:47 AM EDT [facility] Blood Venous blood specimen / Unknown Venipuncture / Unknown 12/23/2024 9:10 AM EDT 12/23/2024 9:32 AM EDT us Jacquelyn Goldstein MD LAB BLOOD ORDERABLES Final Resul t Performing Organization Address [facility]/ZIP Co de Phone Number [facility] [address] [place] [address], [place] [phone] * Prothrombin time with INR (12/23/2024 9:10 AM EDT) Protime 11.0 10.6 - 13.9 sec LAB COAGULATION METHOD 12/23/2024 9:47 AM EDT [facility] INR 0.9 LAB COAGULATION METHOD 12/23/2024 9:47 AM EDT [facility] Blood Venous blood specimen / Unknown Venipuncture / Unknown 12/23/2024 9:10 AM EDT 12/23/2024 9:32 AM EDT us Jacquelyn Goldstein MD LAB BLOOD ORDERABLES Final Resul t Performing Organization Address [facility]/ZIP Co de Phone Number [facility] [address] [place] [address], [place] [phone] * Type and screen (12/23/2024 9:10 AM EDT) ABO Group O 12/23/2024 11:27 AM EDT [facility] Rh Type Positive 12/23/2024 11:27 AM EDT [facility] Antibody Screen Negative 12/23/2024 11:27 AM EDT [facility] Blood Venous blood specimen / Unknown Venipuncture / Unknown 12/23/2024 9:10 AM EDT 12/23/2024 9:32 AM EDT us Jacquelyn Goldstein MD LAB BLOOD BANK TEST ORDERABLES F inal Result [facility] [address] [place] [address], * Basic metabolic panel (12/23/2024 9:10 AM EDT) Sodium 139 133 - 145 mmol/L LAB CHEMISTRY METHOD 12/23/2024 10:18 AM [facility] Potassium 4.1 3.5 - 5.5 mmol/L LAB CHEMISTRY METHOD 12/23/2024 10:18 AM [facility] Chloride 108 96 - 110 mmol/L LAB CHEMISTRY METHOD 12/23/2024 10:18 AM [facility] CO2 27 21 - 32 mmol/L LAB CHEMISTRY METHOD 12/23/2024 10:18 AM [facility] Anion Gap 4 3 - 11 LAB CHEMISTRY METHOD 12/23/2024 10:18 AM [facility] Glucose 92 70 - 100 mg/dL LAB CHEMISTRY METHOD 12/23/2024 10:18 AM [facility] BUN 13 5 - 25 mg/dL LAB CHEMISTRY METHOD 12/23/2024 10:18 AM [facility] Creatinine 0.73 0.50 - 1.10 mg/dL LAB CHEMISTRY METHOD 12/23/2024 10:18 AM [facility] eGFR 85 >=60 mL/min/1. 73m2 LAB CHEMISTRY METHOD 12/23/2024 10:18 AM [facility] Comment:Calculation based on the Chronic Kidney Disease Epidemiology Collaboration (CKD-EPI) equation refit without adjustment for race. BUN/Creatinine Ratio 17.8 LAB CHEMISTRY METHOD 12/23/2024 10:18 AM [facility] Calcium 8.9 8.5 - 10.5 mg/dL LAB CHEMISTRY METHOD 12/23/2024 10:18 AM EDT [facility] Blood Venous blood specimen / Unknown Venipuncture / Unknown 12/23/2024 9:10 AM EDT 12/23/2024 9:33 AM EDT us Jacquelyn Goldstein MD LAB BLOOD ORDERABLES Final Resul t [facility] [address] [place] [address], * CT Lung Screening (11/29/2024 10:32 AM [...] Signed Date: 12/02/2024 10:33 ET Workstation ID: [id number] Transcribed By: Self Edit Transcribed Date: 12/02/2024 10:20 ET Narrative 12/02/2024 10:33 AM EDT EXAMINATION: CT CHEST WITHOUT CONTRAST LUNG CANCER SCREENING, LOW DOSE CLINICAL INFORMATION: Lung cancer screening. Current smoker. COMPARISON: None TECHNIQUE: Multidetector CT. Examination of the chest. Examination of the chest without IV contrast. Reformatting in the coronal and sagittal planes. Device: MetacafepeTopDeejays VCT DLP: 104 mGy-cm CTDI: 3.22 Dose [...] Most Recently Relevant to Health Maintenance Insurance [place] [id number] MEDICARE [facility] Care Teams Grinder Machine Knife Setter Relationship Specialty Start Date End Date Dona Man MD 1963 [facility] [place] [id number] PCP - General Internal Medicine 11/28/24
--- OUTSIDE RECORDS SUMMARY | 2024-12-27 13:01 | XMS_ITS | Encounter Summary ---
Author Organization [facility] Address [address] [place] [phone] Phone Care Team Providers Care Snuff Grinder And Screener Name Role Phone Teja Ambrosio MD Primary Care Provider [phone] Johanne Gupta MD Primary Care Provider Encounter Details Date Type Department Care Team (Late st Contact Info) Description 09/02/2016 Transcribe Orders [facility] Cardiac Rehab [facility] [place] [address] Madison Dugan, RN [address] [place] [address] Pre-op exam (Primary Dx) Social History Tobacco [...] exam documented in this encounter Care Teams Snuff Grinder And Screener Relationship Specialty Start Date End Date Teja Ambrosio MD [address] [place] [phone] [email or web address] PCP - General Internal Medicine 09/02/16 11/04/17 Johanne Gupta MD [address] [place] [address] [email or web address] PCP - General Gastroenterology 11/05/17 documented as of this encounter Additional Source Comments The information contained in this document represents components of the legal health record. It is not the complete legal health record.[facility]
--- OUTSIDE RECORDS SUMMARY | 2024-12-27 13:01 | XMS_ITS | Encounter Summary ---
Author Organization [facility] Address [address] [place] [address] Phone Care Team Providers Care Steam Roller Operator Name Role Phone Johanne Gupta MD Primary Care Provider Encounter Details Date Type Department Care Team (Late st Contact Info) Description 11/20/2017 Ancillary Orders [facility] Radiology - [place] [address] Johanne Gupta MD [address] [place] [phone] [email or web address] Screening breast examination Social History Tobacco Use [...] target duedate for the next mammogram. Result [facility] Johanne Gupta MD IMG MG EXAMS Final Result documented in this encounter Visit Diagnoses Diagnosis Screening breast examination Other screening breast examination Screening breast examination Other screening breast examination documented in this encounter Care Teams Steam Roller Operator Relationship Specialty Start Date End Date Johanne Gupta MD [address] [place] [phone] [email or web address] PCP - General Gastroenterology 11/05/17 documented as of this encounter Additional Source Comments The information contained in this document represents components of the legal health record. It is not the complete legal health record.[facility]
--- OUTSIDE RECORDS SUMMARY | 2024-12-27 13:01 | XMS_ITS | Encounter Summary ---
Author Organization [facility] Address [address] [place] [phone] Phone Care Team Providers Care Greenhouse Superintendent Name Role Phone Unknown, Unknown Primary Care Provider Teja Salmon MD Primary Care Provider [phone] Johanne Gupta MD Primary Care Provider Encounter Details Date Type Department Care Team (Late st Contact Info) Description 08/12/2016 Procedure [facility] [place] [address] Social History Tobacco Use Types Packs/Day Years [...] on filedocumented in this encounter Care Teams Greenhouse Superintendent Relationship Specialty Start Date End Date Unknown, Unknown, PCP - General 01/26/14 09/01/16 Teja Ambrosio MD [address] [place] [phone] [email or web address] PCP - General Internal Medicine 09/02/16 11/04/17 Johanne Gupta MD [address] [place] [phone] [email or web address] PCP - General Gastroenterology 11/05/17 documented as of this encounter Additional Source Comments The information contained in this document represents components of the legal health record. It is not the complete legal health record.[facility]
--- OUTSIDE RECORDS SUMMARY | 2024-12-27 13:01 | XMS_ITS | Encounter Summary ---
Author Organization [facility] Address [address] [facility] [address] [place] [phone] Phone Care Team Providers Care Accredited Legal Secretary Name Role Phone Johanne Gupta MD Primary Care Provider Encounter Details Date Type Department Care Team (Late st Contact Info) Description 11/16/2017 Procedure Pass [facility] [place] [address] Social History Tobacco Use Types Packs/Day Years [...] on filedocumented in this encounter Care Teams Accredited Legal Secretary Relationship Specialty Start Date End Date Johanne Gupta MD [address] [place] [phone] [email or web address] PCP - General Gastroenterology 11/05/17 documented as of this encounter Additional Source Comments The information contained in this document represents components of the legal health record. It is not the complete legal health record.[facility]
== END 2024-12-27 11:40 | disposition home or self-care (01) ==
LOC: HO.HMCC 10:49
PROVIDERS: PCP Internal Medicine; Visit Provider Internal Medicine
DX: I10 Essential (primary) hypertension (principal)

== ENCOUNTER → 2024-12-27 10:48 | Outpatient (BNVA) | payer MEDICARE, OTHER, SELFPAY | PROVIDERS: PCP Internal Medicine; Visit Provider Internal Medicine | DX: I10 Essential (primary) hypertension (principal) | CPT/HCPCS: 96127; 99212 ==

== ENCOUNTER → 2024-12-27 23:59 | Outpatient (BNV) | payer MEDICARE, OTHER, SELFPAY | PROVIDERS: PCP Internal Medicine; Visit Provider Internal Medicine | DX: R91.8 Other nonspecific abnormal finding of lung field (principal); Z48.1 Encounter for planned postprocedural wound closure; Z87.891 Personal history of nicotine dependence | CPT/HCPCS: G0180 ==

== ENCOUNTER → 2025-01-09 23:59 | Outpatient (BNV) | payer MEDICARE, OTHER, SELFPAY | PROVIDERS: PCP Internal Medicine; Visit Provider Internal Medicine | DX: R91.8 Other nonspecific abnormal finding of lung field (principal); Z48.01 Encounter for change or removal of surgical wound dressing; Z87.891 Personal history of nicotine dependence | CPT/HCPCS: G0180 ==

== ENCOUNTER 2025-01-27 09:17 | Outpatient (REF) | payer MEDICARE, OTHER, SELFPAY ==
--- OUTSIDE RECORDS SUMMARY | 2025-01-24 08:56 | XMS_ITS | Encounter Summary ---
Author Organization [facility] Address [address] [place] [address] Care Team Providers Care Sexual Assault Counselor Name Role Phone Dona Man MD Primary Care Provider [phone] Encounter Details Date Type Department Care Team (Latest Contact Info) Description 01/24/2025 8:56 AM EDT - 01/24/2025 11:59 PM EDT Hospital Encounter [facility] Xray [address] [place] [address] History of lung cancer Discharge Disposition: Home or Self Care Social History Tobacco Use Types Packs/Day Years Used Date Smoking Tobacco: Former Cigarettes 1 52 1 964 - 2016 Smokeless Tobacco: Never Alcohol Use Standard Drinks/Week Comments Yes 0 (1 standard drink = 0.6 oz pur e alcohol) Housing Instability Answer Date Recorde d Are you worried that in the next 2 months you may not have stable housing? Patient declined 01/01/2025 Food Access & Nutrition Answer Date Rec orded Do you have access to a vari ety of food including fruits and vegetables? Patient declined 01/01/2025 Access to Healthcare Answer Date Record ed Within the last 3 months, albert w many times did you visit the emergency department for your medical care? 1 01/01/2025 Health Literacy Answer Date Recorded How often do you need to hav e someone help you when you read instructions, pamphlets, or other written material from your doctor or pharmacy? Never 01/01/2025 Caregiver: How often do you need to have someone help you when you read instructions, pamphlets, or other written material from your doctor or pharmacy? Not on file 01/01/2025 Financial Risk Answer Date Recorded How hard is it for you to pa y for the very basics like food, housing, medical care, and air conditioning / heating? Patient declined 01/01/2025 Transportation Answer Date Recorded Has the lack of transportati on kept you from meetings, work, or from getting things needed for daily living? Patient declined 01/01/2025 Has the lack of transportati on kept you from medical appointments or from getting medications? Patient declined 01/01/2025 Social Isolation Answer Date Recorded How often do you feel lonely or isolated from th ose around you? Rarely 01/01/2025 Food Risk Answer Date Recorded Within the past 12 months we worried whether our food would run out before we got money to buy more. Never true 01/01/2025 Within the past 12 months th e food we bought just didn't last and we didn't have money to get more. Never true 01/01/2025 Dependent Care Answer Date Recorded Do you need help finding or paying for care for your loved ones. For example, child center assistant or elderly care for an older adult? No 01/01/2025 Education Answer Date Recorded Do you think completing more education or training, like finishing a GED, going to college, or learning a trade, would be helpful for you? No 01/01/2025 Employment and Income Answer Date Recor ded During the last four weeks, have you been actively looking for work? No 01/01/2025 Living Situation Answer Date Recorded What is your living situation? Unrecognized valu e 01/01/2025 Interpersonal Safety Answer Date Record ed Physical Abuse Unrecognized value 01/01/2025 Verbal Abuse Unrecognized value 01/01/2025 Comments No Sex and Gender Information Value Date Recorded Sex Assigned at Female 11/23/2024 8:51 PM EDT Legal Sex Female 12:43 AM EST Gender Identity Not on file Sexual Orientation Straight 12/28/2024 6: 59 PM EDT documented as of this encounter Medications at Time of Discharge calcium carbonate/vitamin D3 (CALCIUM + D ORAL) 1 TAB BID meloxicam (MOBIC) 15 mg tablet Take 1 tablet (15 mg total) by mouth 1 (one) time each day if needed for moderate pain. metoprolol succinate (TOPROL-XL) 50 mg 24 hr tablet Take 1 tablet (50 mg total) by mouth 1 (one) time each day. Do not crush or chew. MULTIVITAMIN ORAL None Entered oxyCODONE (ROXICODONE) 5 mg immediate release tablet Take 1 tablet (5 mg total) by mouth every 6 (six) hours if needed for severe pain. Max Daily Amount: 20 mg 15 tablet 12/31/2024 documented as of this encounter Discharge Disposition Disposition Code Departure Means Destination Home or Self Care documented in this encounter Plan of Treatment Not on file documented as of this encounter Procedures Procedure Name Priority Date/Time Associated Diagnosis Comments XR CHEST 2 VIEWS Routine 01/24/2025 9:04 AM EDT History of lung cancer documented in this encounter Results * XR Chest 2 Views (01/24/2025 9:04 AM EDT) Anatomical Region Laterality Modality Body Radiographic Ruth ging 01/24/2025 9:26 AM EDT Impressions 01/24/2025 9:32 AM EDT 1. Postoperative changes in the right hemithorax. Elevation and tenting of the right hemidiaphragm as also seen on 01/11/2025. The lungs are otherwise clear. 2. There is a 1.3 cm diameter lucency in the superior aspect of the right glenoid. Further evaluation with dedicated right shoulder radiographs is recommended. 3. Right subcutaneous emphysema has resolved. Code 54068 -------- FINAL REPORT -------- Dictated By: Sacha Oquendo Dictated Date: 01/24/2025 09:26 ET Assigned Physician: Sacha Oquendo Reviewed and Electronically Signed By: Sacha Oquendo Signed Date: 01/24/2025 09:32 ET Workstation ID: [id number] Transcribed By: Self Edit Transcribed Date: 01/24/2025 09:26 ET Narrative 01/24/2025 9:32 AM EDT HISTORY: The patient is a 74-year-old female who underwent right upper lobectomy on 12/28/2024, presenting for follow-up. FINDINGS: PA and lateral radiographs of the chest again demonstrate that the patient has undergone previous anterior fusion in the lower cervical spine as also seen on the prior study performed 01/11/2025. Again seen are degenerative changes of the thoracic spine. A 1.3 cm diameter lucency is present in the superior aspect of the right glenoid. Surgical sutures are again present in the right perihilar area. The cardiac silhouette is within normal limits. The aortic knob is calcified. Again seen are tenting and elevation of the right hemidiaphragm, as also demonstrated on the most recent prior chest radiograph performed 01/11/2025. A tiny right pleural effusion has developed. The left lung remains clear. There is no pneumothorax. Right subcutaneous emphysema has completely resolved. Procedure Note Sacha Oquendo MD - 01/24/2025 HISTORY: The patient is a 74-year-old female who underwent right upperlobectomy on 12/28/2024, presenting for follow-up. FINDINGS: PA and lateral radiographs of the chest again demonstrate thatthe patient has undergone previous anterior fusion in the lower cervicalspine as also seen on the prior study performed 01/11/2025. Again seen aredegenerative changes of the thoracic spine. A 1.3 cm diameter lucency ispresent in the superior aspect of the right glenoid. Surgical sutures areagain present in the right perihilar area. The cardiac silhouette iswithin normal limits. The aortic knob is calcified. Again seen are tentingand elevation of the right hemidiaphragm, as also demonstrated on the mostrecent prior chest radiograph performed 01/11/2025. A tiny right pleuraleffusion has developed. The left lung remains clear. There is nopneumothorax. Right subcutaneous emphysema has completely resolved. IMPRESSION: 1. Postoperative changes in the right hemithorax. Elevation and tenting ofthe right hemidiaphragm as also seen on 01/11/2025. The lungs are otherwiseclear. 2. There is a 1.3 cm diameter lucency in the superior aspect of the rightglenoid. Further evaluation with dedicated right shoulder radiographs isrecommended. 3. Right subcutaneous emphysema has resolved. Code 71964 -------- FINAL REPORT -------- Dictated By: Sacha Oquendo Dictated Date: 01/24/2025 09:26 ET Assigned Physician: Scaha Oquendo Reviewed and Electronically Signed By: Sacha Oquendo Signed Date: 01/24/2025 09:32 ET Workstation ID: [id number] Transcribed By: Self Edit Transcribed Date: 01/24/2025 09:26 ET us Yamila Villareal [employer] IMG XR PROCEDURES Final Res ult documented in this encounter Visit Diagnoses Diagnosis History of lung cancer Personal history of malignant neoplasm of bronchus and lung documented in this encounter Care Teams Sexual Assault Counselor Relationship Specialty Start Date End Date Dona Man MD [facility] [place] [phone] PCP - General Internal Medicine 11/28/24 documented as of this encounter
--- OUTSIDE RECORDS SUMMARY | 2025-01-24 09:15 | XMS_ITS | Encounter Summary ---
Author Organization [facility] Address [address] [place] [address] Care Team Providers Care Bottoming Room Inspector Name Role Phone Dona Man MD Primary Care Provider [phone] Reason for Visit * Reason Comments Post-op Lung Surgery C/O incision site r ed and irritated RUL, xray Encounter Details Date Type Department Care Team (Late st Contact Info) Description 01/24/2025 9:15 AM EDT Office Visit Thoracic Surgery - [place] [address] [phone] Yamila Villareal NP [address] [address] History of lung cancer (Primary Dx) Social History Tobacco Use Types [...] Record ed Within the last 3 months, ho w many times did you visit the [...] for your loved ones. For example, child life therapist or elderly care for an older adult? [...] PM EDT documented as of this encounter Last Filed Vital Signs Vital Sign Reading Time Taken Comments Blood Pressure 139/71 01/24/2025 9:30 AM EDT Pulse 76 01/24/2025 9:30 AM EDT Temperature 36.7 C (98.1 F) 01/24/2025 9:30 AM EDT Respiratory Rate 16 01/24/2025 9:30 AM EDT Oxygen Saturation 97% 01/24/2025 9:30 AM EDT Inhaled Oxygen Concentration - - Weight 54.5 kg (120 lb 1.6 oz) 01/24/2025 9:30 A M EDT Height 152.4 cm (5') 01/24/2025 9:30 AM EDT Body Mass Index 23.46 01/24/2025 9:30 AM EDT documented in this encounter Progress Notes * Yamila Villareal NP - 01/24/2025 10:42 AM EDTAssociated Problem(s): History of lung cancer Ms. Mae is a74 y.o. female who on 12/28/2024 she underwent a da Nuria right upper lobectomy and mediastinal lymphadenectomy for stage Ia acinar adenocarcinoma. She presented today to the office for incisional checks after concern from GIULIANA RN. Incisions appears appear to be healing well with no erythema or drainage. Chest xray obtained prior to this appointment showing a tiny right pleural effusion with no pneumothorax. Right subcutaneous emphysema has completely resolved. Patient will follow up in the office in June 2025 for her first surveillance chest CT scan. She is advised to call the office prior with any questions or concerns. * Yamila Villareal NP - 01/24/2025 9:15 AM EDT Images from the original note were not included. Thoracic Surgery Postoperative Visit Patient name Chasity Mae 1950 Date of Visit: January 24, 2025 Care Team PCP: Dona Man MD Reason for Visit Chief Complaint Patient presents with Post-op Lung Surgery C/O incision site red and irritated RUL, xray Recent Thoracic Procedure Information Date of procedure: December 27, 2024 Type of procedure performed: Navigation bronchoscopy/radial ebus with dye marking, Da Nuria right upper lobe wedge with completion right upper lobectomy, mediastinal lymphadenectomy, bronchoscopy with aspiration, intercostal paravertebral nerve blocks. History of Present Illness Ms. Mae is a 74 y.o. female Ms. Mae is a 74 y.o. female former smoker part of lung cancer screening program had her baseline low-dose CT scan of the chest which showed a partially spiculated pulmonary nodule in the right upper lobe suspicious for malignancy. It was discussed with her the options including observation versus biopsy versus surgical wedge and possible lobectomy. She opted for the surgical wedge for diagnosis with possible lobectomy for therapeutic purposes. The patient understood the risks benefits and alternatives of the proposed operation and agreed to proceed. On December 28, 2024, patient underwent Navigation bronchoscopy/radial ebus with dye marking, Da Nuria right upper lobe wedge with completion right upper lobectomy, mediastinal lymphadenectomy, bronchoscopywith aspiration, intercostal paravertebral nerve blocks. The patient tolerated the procedure well. The patient was extubated in the operating room brought to the PACU in stable condition. From PACU she was transferred to [facility] for further care on telemetry. On POD #1 Chest xray revealed small apical pneumothorax with no pleural effusion. Her chest tube output was minimal of serosanguious fluid since surgery with a +1 air leak with forceful cough and deep exhalation. On POD #3 chest xray revealed resolved pneumothorax and no pleural effusion. No detectable air leak was noted a this time with deep cough or forceful exhalation. The decision was made to remove the chest tube at this time. A occlusive dressing was placed over the site and she was instructed to keep it in place for 48 hours. She did present to the emergency room on 01/02/24 due to increasing severe subcutaneous emphysema noted throughout, at which time she was re-admitted an a chest tube was placed back on that right side. Chest xray in the ED only showing a small right apical PTX, but demonstrating the severe subcutaneous emphysema. Chest CT scan obtained shortly after indicating an Increased moderate right pneumothorax decompressing into the right lateral chest wall via site of prior chest tube. Pneumomediastinum and la rge subcutaneous air throughout the right greater than left chest, neck, and upper abdomen. Throughout her hospital course she continued to have a +1 detectable airleak with her tail catheter present. She did have a blood patch performed during her hospital stage which ended up clogging up her pigtail catheter tube resulting in worsening of subcutaneous emphysema. Her chest tube had been placed on -20 low wall suction for several days after that and then 2 days ago her right sided chest tube was placed to waterseal. A chest x-ray was performed today with her chest tube on waterseal overnight which showed no evidence of pleural separation and showed some improvement over the past several days of her subcutaneous emphysema seen on x-ray as well as physical exam. She denied any concerning symptoms such as new or worsening shortness of breath, fever, chills and her chest tube showed no evidence of air leak on physical exam during the day of discharge. She had minimal serosanguineous fluidoutput and her right-sided chest tube was removed without incident and dry occlusive dressing put in place with instructions not to remove dressing for 48 hours. She was discharged on 01/07/25 home toself-care. She was seen on 01/12/24 for her two week postoperative appointment, at which time she was doing well and pathology was discussed with the patient. She presents today for evaluation of her incisions. Patient has been doing well since her last visit to the thoracic surgery office. She denies any newor worsening shortness of breath, cough, or hemoptysis. She denies any fevers or chills. She does however have a little concern over the previous chest tube insertion site and some redness she noted around it and per [facility] nurse, he believed it felt warm to touch. She denies any drainage from the sites. Medical History[1] Problem List[2] Surgical History[3] Allergies[4] Medications Ordered Prior to Encounter[5] Social History[6] Social History Social History Narrative Not on file Review of Systems Review of Systems Constitutional: Negative for chills and fever. Cardiovascular: Positive for dyspnea on exertion. Negative for chest pain and palpitations. Respiratory: Negative for cough, hemoptysis and shortness of breath. Gastrointestinal: Negative for abdominal pain, nausea and vomiting. Physical Exam Vitals: 01/24/25 0930 BP: 139/71 BP Location: Right arm Patient Position: Sitting BP Cuff Size: Small adult Pulse: 76 Resp: 16 Temp: 36.7 ??C (98.1 ??F) TempSrc: Temporal SpO2: 97% Weight: 54.5 kg (120 lb 1.6 oz) Height: 1.524 m (60 ) Physical Exam Vitals reviewed. Constitutional: Appearance: Normal appearance. HENT: Head: Normocephalic and atraumatic. Eyes: General: No scleral icterus. Cardiovascular: Rate and Rhythm: Normal rate and regular rhythm. Pulmonary: Effort: Pulmonary effort is normal. Breath sounds: Normal breath sounds. Chest: Comments: Multiple right sided surgical incisions healing well, without appearance of infection, noerythema or drainage. Surgical glue noted on several incision. Abdominal: Palpations: Abdomen is soft. Skin: General: Skin is warm. Neurological: General: No focal deficit present. Mental Status: She is alert and oriented to person, place, and time. Psychiatric: Mood and Affect: Mood normal. Behavior: Behavior normal. Pathology Lab Results Component Value Date FINALDX 12/28/2024 A. Lung, Right Upper Lobe, wedge resection: - Invasive adenocarcinoma, solid-pattern predominant. (See cancer synoptic report) - Tumor size: 1.1 cm (greatest linear dimension). - Tumor grade: poorly differentiated. - Tumor extent: limited to lung parenchyma. - Lymphatic and or vascular invasion: not identified. - Margins: all margins are negative for carcinoma and non-invasive tumor. - Additional findings: mild emphysematous changes. - Pathologic tumor score: pT1a, pN0. - Immunohistochemistry: - TTF1: positive in tumor. - Napsin A: positive in tumor. - P40: negative in tumor. Note: The immunostains performed were medically necessary for tumor characterization in solid-predominant lung cancer and supports the above diagnosis of adenocarcinoma. B. Lymph Node, Level 8, Right, biopsy - One benign lymph node, negative for carcinoma (0/1). C. Lymph Node, Level 9, Right, biopsy - One benign lymph node, negative for carcinoma (0/1). D. Lymph Node, Level 7, biopsy: - One benign lymph node, negative for carcinoma (0/1). E. Lymph Node, R4, biopsy: - One benign lymph node, negative for carcinoma (0/1). F. Lymph Node, Level 10, Right, biopsy: - One benign lymph node, negative for carcinoma (0/1). G. Lymph Node, Level 10 #2, Right, biopsy: - One benign lymph node, negative for carcinoma (0/1). H. Lung, Right Upper Lobe, Completion Lobectomy: - Benign lung with emphysematous changes. - Eight benign anthracotic lymph nodes, negative for carcinoma (0/8). SYNOPTIC 12/28/2024 LUNG LUNG - All Specimens AJCC 9 - Protocol posted: 03/30/2024 SPECIMEN Procedure: Wedge resection Specimen Laterality: Right TUMOR Tumor Focality: Single focus Tumor Site: Upper lobe of lung Tumor Size: Invasive Tumor Size: Greatest Dimension (Centimeters): 1.1 cm Histologic Type: Invasive solid adenocarcinoma Histologic Patterns: Acinar: 20% Histologic Patterns: Solid: 80% Histologic Grade: G3, poorly differentiated Spread Through Air Spaces (KEESHA): Not identified Visceral Pleura Invasion: Not identified Direct Invasion of Other Structures: Not applicable (no other structures present) Treatment Effect: No known presurgical therapy Lymphatic and / or Vascular Invasion: Not identified MARGINS Margin Status for Invasive Tumor: All margins negative for invasive tumor Closest Margin(s) to Invasive Tumor: Parenchymal Distance from Invasive Tumor to Closest Margin: 1.0 cm Margin Status for Non-Invasive Tumor: All margins negative for non-invasive tumor REGIONAL LYMPH NODES Lymph Node(s) from Prior Procedures: No known prior lymph node sampling performed Regional Lymph Node Status: : All regional lymph nodes negative for tumor Number of Lymph Nodes Examined: 14 Sahil Site(s) Examined: 4R: Lower paratracheal Sahil Site(s) Examined: 8R: Para-esophageal (below savannah) Sahil Site(s) Examined: 9R: Pulmonary ligament Sahil Site(s) Examined: 10R: Hilar Sahil Site(s) Examined: 12R-14R: Intrapulmonary Sahil Site(s) Examined: 7: Subcarinal pTNM CLASSIFICATION (AJCC Version 9) Reporting of pT, pN, and (when applicable) pM categories is based on information available to the pathologist at the time the report is issued. As per the AJCC (Chapter 1, 8th Ed.) it is the managingphysician's responsibility to establish the final pathologic stage based upon all pertinent information, including but potentially not limited to this pathology report. pT Category: pT1b pN Category: pN0 ADDITIONAL FINDINGS Additional Findings: Emphysema GROSSDES 12/28/2024 A. Lung, Right Upper Lobe, : Labeled wedge, lung RUL . Received in formalin is a previously incised, 5 g, 5.0 x 2.5 x 1.8 cm wedge of lung resection with a removed linear stapled line that is inked blue. The pleural surface is sanchez-mosqueda. The incision area is contiguous with a 0.9 x 0.4 x 0.3 cm well-circumscribed, white, rubbery lesion. The lesion measures 0.1 cm from the staple line and 1.0 cm from the pleural surface. The uninvolved parenchyma is blue stained to brown and spongiform. No other palpable or grossly identifiable nodules are noted. Lymph nodes are absent. Entirety of the mass and lung wedge excluding staple line are submitted. Digital photographs are taken. 1: Frozen section residue, section of mass, one piece 2: Entire mass to staple line and pleura, one piece 3-4: Uninvolved parenchyma surrounding mass, one piece each 6: Remaining lung, two pieces KR B. Lymph Node, Level 8, Right: Labeled level 8, lymph node . Received in formalin, on Telfa, is a 0.9 x 0.4 x 0.3 cm focally anthracotic, sanchez-mosqueda portion of sahil tissue with minimally attached adipose tissue. The specimen is bisected, wrapped in paper and submitted entirely in one cassette, two pieces. C. Lymph Node, Level 9, Right: Labeled level 9, lymph node . Received in formalin, on Telfa, is a 1.0 x 0.4 x 0.4 cm focally anthracotic, sanchez-mosqueda portion of sahil tissue with minimally attached adipose tissue. The specimen bisected, and submitted entirely in one cassette, two pieces. D. Lymph Node, Level 7: Labeled level 7, lymph node . Received in formalin, on Telfa, is a 1.4 x 0.7 x 0.4 cm focally anthracotic, sanchez-mosqueda portion of sahil tissue with minimally attached adipose tissue. The specimen is bisected, and submitted entirely in one cassette, two pieces. E. Lymph Node, R4: Labeled R4, lymph node . Received in formalin, on Telfa, is a 0.6 x 0.4 x 0.2 cm focally anthracotic, sanchez-mosqueda portion of sahil tissue with minimal attached adipose tissue. The specimen is bisected, and submitted entirely in one cassette , two pieces. F. Lymph Node, Level 10, Right: Labeled level 10, lymph node . Received in formalin, on Telfa, is a 0.6 x 0.5 x 0.2 cm focally anthracotic, sanchez-mosqueda portion of sahil tissue with minimal attached adipose tissue. The specimen is bisected, and submitted entirely in one cassette, two pieces. G. Lymph Node, Level 10 #2, Right: Labeled level 10, lymph node . Received in formalin, on Telfa, is a 0.4 x 0.3 x 0.2 cm focally, anthracotic, sanchez-mosqueda portion of sahil tissue with minimally attached adipose tissue. The specimen is submitted in toto in one cassette, one piece. H. Lung, Right Upper Lobe, Completion Lobectomy: Labeled completio, Lung RUL'. Received in formalin is a 113 g, 11.6 x 9.1 x 2.5 cm completion lobectomy which contains two staple lines. The staple lines are removed and inked blue. The stapled bronchovascular margins are removed and submitted en face. The cut surfaces show a dark, red, spongiformparenchyma with emphysematous changes with an associated honeycombed pattern at the superior aspect. No palpable or grossly identifiable nodules are identified. Six possible intraparenchymal lymph nodes are identified ranging from 0.4 cm and 1.0 cm in greatest diameter. Police Booking Officer sections are submitted in eleven cassettes. 1: Vasculature margins (inked green), en face, two pieces 2: Bronchial margin (inked green), en face, one piece 3-4: Random lung from the superior lobe, two pieces each 5-6: Random lung from the middle lobe, two pieces each 7-8: Random lung from the inferior lobe, two pieces each 9: Two possible lymph node, two pieces 10: Two possible lymph nodes, each bisected (one not inked and one differentially inked blue dye todistinguish microscopically), four pieces 11: Two possible lymph nodes, each bisected (one not inked and one differentially inked blue dye todistinguish microscopically), four pieces KR INTRAOP 12/28/2024 A. Lung, Right Upper Lobe, : Non-small cell carcinoma. Margin is negative for tumor. -SL Microbiology Lab Results Component Value Date FUNGCX Negative for Fungal Growth to Date 12/28/2024 AFBSTR 12/28/2024 No Acid fast bacilli seen on direct smear (Fuchsin method, 1000x) TISSUECX No growth aerobically and anaerobically at 5 days. 12/28/2024 GRAMSTAIN 12/28/2024 No polymorphonuclear leukocytes, No epithelial cells, and No organisms noted AFBSPECI Tissue Grinding and Digestion/Decontamination 12/28/2024 ACIDFAST Negative 12/28/2024 Radiology I personally viewed the patient's current and past imaging studies, in addition to reviewing the dictated report from the reading radiologist. XR Chest 2 Views Narrative: HISTORY: The patient is a 74-year-old female [...] pneumothorax. Right subcutaneous emphysema has completely resolved. Impression: 1. Postoperative changes in the right hemithorax. Elevation and tenting of the right hemidiaphragm as also seen on 01/11/2025. The lungs are otherwise clear. 2. There is a 1.3 cm diameter lucency in the superior aspect of the right glenoid. Further evaluation with dedicated right shoulder radiographs is recommended. 3. Right subcutaneous emphysema has resolved. Code 39188 -------- FINAL REPORT -------- Dictated By: Sacha Oquendo Dictated Date: 01/24/2025 09:26 ET Assigned Physician: Sacha Oquendo Reviewed and Electronically Signed By: Sacha Oquendo Signed Date: 01/24/2025 09:32 ET Workstation ID: [id number] Transcribed By: Self Edit Transcribed Date: 01/24/2025 09:26 ET Assessment and Plan Problem List Items Addressed This Visit History of lung cancer - Primary Ms. Mae is a74 y.o. female who on 12/28/2024 she underwent a da Nuria right upper lobectomy and mediastinal lymphadenectomy for stage Ia acinar adenocarcinoma. She presented today to the office for incisional checks after concern from TADA RN. Incisions appears appear to be healing well with no erythema or drainage. Chest xray obtained prior to this appointment showing a tiny right pleural effusion with no pneumothorax. Right subcutaneous emphysema has completely resolved. Patient will follow up in the office in June 2025 for her first surveillance chest CT scan. She is advised to call the office prior with any questions or concerns. 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 Diverticulosis of colon (without mention of hemorrhage) 10/05/2006 DX:Diverticulosis of colon (without mention of hemorrhage); COMMENT: Incidental finding at colonoscopy 10/05/2006. Generalized osteoarthrosis, unspecified site DX:Generalized osteoarthrosis, unspecified site Lani's disease DX:Lani's disease Hypertension Lung cancer (CMS/HCC V24, CMS/HCC V28) 12/28/2024 RUL Pulmonary nodule Smoker DX:Smoker Zoster DX:Zoster; COMMENT: C6 dermatome [2] Patient Active Problem List Diagnosis Benign neoplasm of rectum and anal canal Disorder of bone and cartilage Diverticulitis of colon without hemorrhage Lani's disease Herpes simplex Smoker Myalgia Pulmonary nodule Pneumothorax on right History of lung cancer [3] Past Surgical History: Procedure Laterality Date BREAST BIOPSY CERVICAL DISCECTOMY CERVICAL FUSION COLONOSCOPY W/ POLYPECTOMY 10/05/2006 PROCEDURE: PA COLSC FLX W/RMVL OF TUMOR POLYP LESION SNARE TQ; COMMENT: Small hyperplastic polyp LUNG REMOVAL, PARTIAL Right 12/28/2024 RUL Lobectomy OTHER SURGICAL HISTORY PROCEDURE: PA OSTEOTOMY SPINE PST/PSTLAT APPR 1 VRT SGM CRV; COMMENT: Fusion [4] Allergies Allergen Reactions Adhesive Tape-Silicones Itching and Rash LATEX TAPE Sulfa (Sulfonamide Antibiotics) Rash [5] Current Outpatient Medications on File Prior to Visit Medication Sig Dispense Refill calcium carbonate/vitamin D3 (CALCIUM + D ORAL) 1 TAB BID meloxicam (MOBIC) 15 mg tablet Take 1 tablet (15 mg total) by mouth 1 (one) time each day if neededfor moderate pain. metoprolol succinate (TOPROL-XL) 50 mg 24 hr tablet Take 1 tablet (50 mg total) by mouth 1 (one) time each day. Do not crush or chew. MULTIVITAMIN ORAL None Entered oxyCODONE (ROXICODONE) 5 mg immediate release tablet Take 1 tablet (5 mg total) by mouth every 6 (six) hours if needed for severe pain. Max Daily Amount: 20 mg 15 tablet 0 No current facility-administered medications on file prior to visit. [6] Social History Tobacco Use Smoking status: Former Current packs/day: 0.00 Average packs/day: 1 pack/day for 52.0 years (52.0 ttl pk-yrs) Types: Cigarettes Start date: 1963 Quit date: 2015 Years since quittin.7 Smokeless tobacco: Never Vaping Use Vaping status: Unknown Substance Use Topics Alcohol use: Yes Drug use: No * Savannah Cordon RN - 01/24/2025 9:15 AM EDT Called and spoke to the front office and gave them the message about the right shoulder lucency andthe need for further work up. I also sent over the x-ray report with a message attached regarding the right shoulder lucency. documented in this encounter Plan of Treatment Not on file documented as of this encounter Visit Diagnoses Diagnosis History of lung cancer- Primary Personal history of malignant neoplasm of bronchus and lung documented in this encounter Care Teams Bottoming Room Inspector Relationship Specialty Start Date End Date Dona Man MD [address] [place] [address] PCP - General Internal Medicine 11/28/24 documented as of this encounter
--- NOTE | ~2025-01-27 | XR_ITS ---
EXAMINATION: XR SHOULDER, RIGHT CLINICAL INFORMATION: M87.9 - Osteonecrosis, unspecified COMPARISON: None available. TECHNIQUE: AP external rotation, Grashey, scapular Y, and axillary views of the right shoulder. FINDINGS: Normal bone mineralization. No fracture, dislocation, or suspicious bone lesion. Normal alignment. The glenohumeral joint demonstrates mild to moderate degenerative arthrosis. No evidence of AVN. The AC joint joint demonstrates mild to moderate degenerative spurring. There is a type II acromion. No undersurface spurring. The subacromial space is preserved. There is mild amorphous calcification of the supraspinatus tendon. Remainder of the soft tissue and bony structures appear normal. XR/XR shoulder RT min 2V IMPRESSION: 1. No acute bony or soft tissue abnormality. No evidence of AVN. 2. 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 3. Mild calcific tendinopathy of the supraspinatus tendon. Electronically signed by: Man Lara MD 01/27/2025 09:47 AM EDT
--- OUTSIDE RECORDS SUMMARY | 2025-01-27 09:49 | XMS_ITS | Encounter Summary ---
Author Organization [facility] Address [address] [place] [phone] Phone Care Team Providers Care Aquatics Lifeguard Name Role Phone Teja Ambrosio MD Primary Care Provider [phone] Johanne Gupta MD Primary Care Provider Encounter Details Date Type Department Care Team (Late st Contact Info) Description 12/12/2016 Ancillary Orders [facility] [place] [address] Orlando Higgins, PA [address] [place] [phone] [email or web address] Foraminal stenosis of lumbar region Social [...] region documented in this encounter Care Teams Aquatics Lifeguard Relationship Specialty Start Date End Date Teja Ambrosio MD [address] [place] [address] [place] [phone] [email or web address] PCP - General Internal Medicine 09/02/16 11/04/17 Johanne Gupta MD [address] [place] [address] [email or web address] PCP - General Gastroenterology 11/05/17 documented as of this encounter Additional Source Comments The information contained in this document represents components of the legal health record. It is not the complete legal health record.[facility]
--- OUTSIDE RECORDS SUMMARY | 2025-01-27 09:49 | XMS_ITS | Clinical Summary ---
Author Organization [facility] [address] [facility] Address [address] [place] [address] Phone Care Team Providers Care Strategic Business Development Name Role Phone Dona Man MD Primary Care Provider [phone] Allergies Active Allergy Reactions Criticality Noted Date Comments Adhesive Tape-Silicones Itching,Rash Medium 12/20/2024 LATEX TAPE Sulfa (Sulfonamide Antibiotics) Rash Low 02/18 Medications calcium carbonate/vitam in D3 (CALCIUM + D ORAL) 1 TAB BID Active MULTIVITAMIN ORAL None Entered Active meloxicam (MOBIC) 15 mg tablet Take 1 tablet (15 mg total) by mouth 1 (one) time each day if needed for moderate pain. Active metoprolol succinate (TOPROL-XL) 50 mg 24 hr tablet Take 1 tablet (50 mg total) by mouth 1 (one) time each day. Do not crush or chew. Active oxyCODONE (ROXICODONE) 5 mg immediate release tablet Take 1 tablet (5 mg total) by mouth every 6 (six) hours if needed for severe pain. Max Daily Amount: 20 mg 15 tablet 5 Active ibuprofen (ADVIL,MOTRIN) 600 mg tablet 1 TABLET 3 TIMES DAILY 01/01/20 25 Discontinu ed(Stop Taking at Discharge) Active Problems Problem Noted Date Diagnosed Date History of lung cancer 01/12/2025 Assessment & Plan (01/24/2025 10:42 AM EDT): Ms. Mae is a74 y.o. female who [...] office prior with any questions or concerns. Assessment & Plan (01/12/2025 3:47 PM EDT): On 12/28/2024 she underwent a da Nuria right upper lobectomy and mediastinal lymphadenectomy for stage Ia acinar adenocarcinoma. She was informed that she was discussed at our weekly multidisciplinary tumor board meeting and would not require any referral to medical oncology due to her low staging. She was also educated that we will continue to follow her at the thoracic surgery department every [address] surveillance scans with her first chest CT scan due in June 2025 and a follow-up visit thereafter to discuss results. Pneumothorax on right 01/01/2025 Pulmonary nodule 12/15/2024 Herpes simplex 07/15/2007 Lani's [...] Encounters Date Type Department Care Team Description 01/24/2025 9:15 AM EDT Office Visit Thoracic Surgery - [address] [phone] Yamila Villareal NP History of lung cancer (Primary Dx) 01/24/2025 8:56 AM EDT - 01/24/2025 11:59 PM EDT Hospital Encounter [facility] Xray [address] [place] [address] History of lung cancer Discharge Disposition: Home or Self Care 01/11/2025 2:45 PM EDT Office Visit Thoracic Surgery - [address] [phone] Will Reyes, PA History of lung cancer (Primary Dx) 01/11/2025 2:00 PM EDT - 01/11/2025 11:59 PM EDT Hospital Encounter [facility] Xray [address] [place] [address] Pulmonary nodule; Malignant neoplasm of upper lobe of right lung (CMS/HCC V24, CMS/HCC V28) Discharge Disposition: Home or Self Care 01/01/2025 12:27 PM EDT - 01/07/2025 2:58 PM EDT Hospital Encounter [facility] Intermediate Care Unit [address] [place] [phone] Shahriar Forrester MD Rousou, Laki, MD Seralathan, Manikandan, MD Pneumothorax, right (Primary Dx) Discharge Disposition: Home or Self Care 12/28/2024 11:30 AM EDT - 12/28/2024 3:30 PM EDT Surgery [facility] Main OR [address] [place] [phone] Jacquelyn Goldstein MD Navigational bronchoscopy dye marking, Bruce right upper lobe wedge completion right upper lobectomy [06695 (CPT ) +5 more] 12/28/2024 11:28 AM EDT Anesthesia Event [facility] Main OR [address] [place] [address] Guy Eugene MD Lema Alava, Steven, SRNA 12/28/2024 10:12 AM EDT - 12/31/2024 12:43 PM EDT Hospital Encounter [facility] Care Unit [address] [place] [address] Jacquelyn Goldstein MD Bell, Alistair A, MD Malignant neoplasm of upper lobe of right lung (CMS/HCC V24, CMS/HCC V28) (Primary Dx); Pulmonary nodule Discharge Disposition: Home or Self Care 12/26/2024 8:09 AM EDT - 12/26/2024 11:59 PM EDT Hospital Encounter [facility] Pulmonary [address] [place] [address] Lung nodule Discharge Disposition: Home or Self Care 12/15/2024 9:15 AM EDT Consult Thoracic Surgery - [address] [phone] Jacquelyn Goldstein MD Pulmonary nodule (Primary Dx); Lung nodule; Smoker; Neoplasm 12/15/2024 Telephone Thoracic Surgery - [address] [phone] Yaneth Vuong [place] 12/05/2024 Telephone Lung Screening Program - [address] [phone] Radha Fair [place] 11/29/2024 10:24 AM EDT - 11/29/2024 11:59 PM EDT Hospital Encounter [facility] CT Scan [address] [place] [address] Encounter for screening for lung cancer; Former smoker Discharge Disposition: Home or Self Care 11/29/2024 10:15 AM EDT Office Visit Lung Screening Program - [address] [phone] Yamila Villareal NP Encounter for screening for malignant neoplasm of lung in former smoker who quit in past 15 years with 30 pack year history or greater (Primary Dx) from Last 3 Months Immunizations Immunization Administration Dates Next Due Influenza trivalent, with pr eservative (Fluzone; Afluria) 6mo and older 02/15/2007,04/04/2005,02/23/2003 Surgical History Surgery Date Site/Laterality Comments OTHER SURGICAL HISTORY PROCEDURE: MI OSTEOTOMY SPINE PST/PSTLAT APPR 1 VRT SGM CRV; COMMENT: Fusion COLONOSCOPY W/ POLYPECTOMY 10/05/2006 PROCEDURE: MI COLSC FLX W/RMVL OF TUMOR POLYP LESION SNARE TQ; COMMENT: Small hyperplastic polyp CERVICAL DISCECTOMY CERVICAL FUSION BREAST BIOPSY LUNG REMOVAL, PARTIAL 12/28/2024 Right RUL Lobectomy Medical History Medical History Date Comments Diverticulosis of colon (wit laura mention of hemorrhage) 10/05/2006 DX:Diverticulosis of colon [...] unspecified site DX:Generalized osteoarthrosi s, unspecified site Hypertension Pulmonary nodule Lung cancer (CMS/HCC V24, CMS/HCC V28) 5 RUL Family History Medical History Relation Name Comments [...] 1 964 - 2016 Smokeless Tobacco: Never Tobacco Cessation:Counseling Given: Not Answered Alcohol Use [...] care for your loved ones. For example, children's ministry director or elderly care for an older adult? [...] Orientation Straight 12/28/2024 6: 59 PM EDT Obstetrics History Last Filed Vital Signs Vital [...] Mass Index 23.46 01/24/2025 9:30 AM EDT Plan of Treatment Health Maintenance Due Date Last Done Comments Pneumococcal Vaccine: 50+ Years (2 of 2 - PPSV23, PCV20, or PCV21) 03/15/2021 01/18/2021 Cholesterol Screening (Lipid Panel) 04/18/2024 07/13/2007 Hepatitis C Screening 04/18/2024 Medicare Annual Wellness Visit 04/18/2024 Osteoporosis Screening (Bone Density Screening) 04/18/2024 Depression Screening 04/20/2024 Lung Cancer Screening (Low Dose CT) 11/29/2025 11/29/2024 Social Influencers of Health Screening 01/01/2026 01/01/2025 Hypertension/CHF/CAD Annual BMP Blood Test 01/05/2026 01/05/2025, 01/03/2025, 01/02/2025, Additional history exists Falls Risk Assessment 01/07/2026 01/07/2025 DTaP,Tdap,and Td Vaccines (2 - Td or Tdap) 03/11/2034 03/11/2024 Zoster Vaccines Completed 06/07/2021, 03/22/2021 RSV Immunization Adult Patients Completed 01/23/2023 Influenza Vaccine Completed 12/04/2024, , 12/15/2022, Additional history exists COVID-19 Vaccine Completed 01/11/2025, 02/2024, 01/30/2023, Additional history exists HIB Vaccines Aged Out [...] age to complete this topic Medical Devices Implanted Type Area Artist And Repertoire Manager Device Identifier Shelf Expiration Date Model / Serial / Lot Hemostat Absorb Surgicel Nu-Knit 3x4in - Sna - [id number] Implanted:Qty: 1 on 12/28/2024 by Jacquelyn Goldstein MD at [facility] Hemostasis Right: Chest [employer] [id number] 11/17/2028 1943S / NA / [id number] Sealant Progel Air Pleural 4ml - Sna - [id number] Implanted:Qty: 1 on 12/28/2024 by Jacquelyn Goldstein MD at [facility] Hemostasis Right: Chest CR BARD - DAVOL DIV [id number] 01/18/2026 [id number] / NA / [id number] Sealant Fibrin Vistaseal 10ml - [id number] - [id number] Implanted:Qty: 1 on 12/28/2024 by Jacquelyn Goldstein MD at [facility] Hemostasis Right: Chest [employer] [id number] 05/31/2026 VST10 / [id number] / [id number] Procedures Procedure Name Priority Date/Time Associated Diagnosis Comments XR CHEST 2 VIEWS Routine 01/24/2025 9:04 AM EDT History of lung cancer XR CHEST 2 VIEWS Routine 01/11/2025 2:10 PM EDT Pulmonary nodule Malignant neoplasm of upper lobe of right lung (CMS/HCC V24, CMS/HCC V28) XR CHEST 1 VIEW Routine 01/07/2025 5:35 AM EDT XR CHEST 1 VIEW STAT 01/06/2025 6:09 AM EDT CBC WITH AUTO DIFFERENTIAL Routine 01/05/2025 6:36 AM EDT CBC AND DIFFERENTIAL Routine 01/05/2025 6:36 AM EDT BASIC METABOLIC PANEL Routine 01/05/2025 6:36 AM EDT PEP THERAPY Routine 01/05/2025 6:01 AM EDT XR CHEST 1 VIEW STAT 01/05/2025 5:57 AM EDT PEP THERAPY Routine 01/04/2025 6:00 AM EDT XR CHEST 1 VIEW Routine 01/04/2025 5:45 AM EDT PEP THERAPY Routine 01/03/2025 8:02 AM EDT LAVENDER - EDTA Routine 01/03/2025 5:53 AM EDT EXTRA TUBES Routine 01/03/2025 5:53 AM EDT BASIC METABOLIC PANEL Routine 01/03/2025 5:53 AM EDT XR CHEST 1 VIEW STAT 01/03/2025 5:49 AM EDT PEP THERAPY Routine 01/02/2025 1:08 PM EDT PEP THERAPY Routine 01/02/2025 1:08 PM EDT PEP THERAPY Routine 01/02/2025 1:08 PM EDT MAGNESIUM Routine 01/02/2025 6:04 AM EDT PHOSPHORUS Routine 01/02/2025 6:04 AM EDT BASIC METABOLIC PANEL Routine 01/02/2025 6:04 AM EDT COMPLETE BLOOD COUNT Routine 01/02/2025 6:04 AM EDT XR CHEST 1 VIEW Routine 01/02/2025 5:49 AM EDT ECG ANNOTATED 01/02/2025 BASIC METABOLIC PANEL STAT 01/01/2025 6:23 PM EDT COMPLETE BLOOD COUNT STAT 01/01/2025 6:23 PM EDT IR PLEURAL DRAIN INSERT CATH W IMAGE GUIDANCE RIGHT Routine 01/01/2025 5:38 PM EDT PEP THERAPY Routine 01/01/2025 2:02 PM EDT PEP THERAPY Routine 01/01/2025 2:02 PM EDT PEP THERAPY Routine 01/01/2025 2:[address] CHEST WO CONTRAST STAT 01/01/2025 1:33 PM EDT CBC WITH AUTO DIFFERENTIAL STAT 01/01/2025 1:21 PM EDT ACTIVATED PARTIAL THROMBOPLASTIN TIME STAT 01/01/2025 1:21 PM EDT PROTHROMBIN TIME WITH INR STAT 01/01/2025 1:21 PM EDT CBC AND DIFFERENTIAL STAT 01/01/2025 1:21 PM EDT COMPREHENSIVE METABOLIC PANEL STAT 01/01/2025 1:21 PM EDT ECG 12-LEAD STAT 01/01/2025 1:11 PM EDT XR CHEST 2 VIEWS STAT 01/01/2025 12:5 9 PM EDT XR CHEST 1 VIEW Routine 12/31/2024 5:40 AM EDT PEP THERAPY Routine 12/30/2024 8:02 AM EDT XR CHEST 1 VIEW Routine 12/30/2024 5:32 AM EDT PEP THERAPY Routine 12/29/2024 8:00 PM EDT PEP THERAPY Routine 12/29/2024 4:00 PM EDT PEP THERAPY Routine 12/29/2024 12:02 PM EDT PEP THERAPY Routine 12/29/2024 8:02 AM EDT MAGNESIUM Routine 12/29/2024 6:08 AM EDT PHOSPHORUS Routine 12/29/2024 6:08 AM EDT BASIC METABOLIC PANEL Routine 12/29/2024 6:08 AM EDT COMPLETE BLOOD COUNT Routine 12/29/2024 6:08 AM EDT XR CHEST 1 VIEW STAT 12/29/2024 5:48 AM EDT PEP THERAPY Routine 12/28/2024 8:01 PM EDT PEP THERAPY Routine 12/28/2024 6:09 PM EDT PEP THERAPY Routine 12/28/2024 6:09 PM EDT PEP THERAPY Routine 12/28/2024 6:09 PM EDT PEP THERAPY Routine 12/28/2024 6:09 PM EDT XR CHEST 1 VIEW STAT 12/28/2024 4:16 PM EDT COMPLETE BLOOD COUNT STAT 12/28/2024 4:08 PM EDT MAGNESIUM STAT 12/28/2024 4:07 PM EDT PHOSPHORUS STAT 12/28/2024 4:07 PM EDT BASIC METABOLIC PANEL STAT 12/28/2024 4:07 PM EDT ..TISSUE GRIND, DIGESTION AND DECONVOLUTION Routine 12/28/2024 1:16 PM EDT Pulmonary nodule ACID FAST BACILLI STAIN Routine 12/28/2024 1:16 PM EDT Pulmonary nodule CULTURE TISSUE WITH GRAM STAIN Routine 12/28/2024 1:16 PM EDT Pulmonary nodule CULTURE, AFB AND SMEAR WITH REFLEX TO IDENTIFICATION AND SUSCEPTIBILITY Routine 12/28/2024 1:16 PM EDT Pulmonary nodule CULTURE FUNGAL, OTHER Routine 12/28/2024 1:16 PM EDT Pulmonary nodule TISSUE EXAM Routine 12/28/2024 1:15 PM EDT Pulmonary nodule TH AN ENDOTRACHEAL(NO CHARGE) Routine 12/28/2024 12:41 PM EDT ANESTHESIA PERIPHERAL IV PLACEMENT Routine 12/28/2024 12:40 PM EDT TH AN ENDOTRACHEAL(NO CHARGE) Routine 12/28/2024 12:31 PM EDT TH AN ARTERIAL LINE (CHARGE) Routine 12/28/2024 12:08 PM EDT MI REMOVAL OF LUNG OTHER THAN PNEUMONECTOMY SINGLE LOBE 12/28/2024 11:28 AM EDT Pulmonary nodule Case Notes [facility] MI THORACOSCOPY SURGICAL WITH REMOVAL OF A SINGLE LUNG SEGMENT 12/28/2024 11:28 AM EDT Pulmonary nodule Case Notes [facility] MI BRONCHOSCOPY RIGID/FLEXIBLE INCL FLUORO W/THERAPY ASPIRATION INITIAL 12/28/2024 11:28 AM EDT Pulmonary nodule Case Notes [facility] MI BRONCHOSCOPY INCL FLUROSCOPIC GUIDANCE W PLCMNT FIDUCIAL MARKER SGL/MULT 12/28/2024 11:28 AM EDT Pulmonary nodule Case Notes [facility] MI BRONCHOSCOPY RIGID/FLEXIBLE COMPUTER ASSISTED IMAGE GUIDED NAVIGATION 12/28/2024 11:28 AM EDT Pulmonary nodule Case Notes [facility] MI THORACOSCOPY W DX WEDGE RESECTION F/B ANATOMIC LUNG RESECTION 12/28/2024 11:28 AM EDT Pulmonary nodule Case Notes [facility] PREPARE RBC Routine 12/28/2024 11:10 AM EDT HC SPIROMETRY BRONCHODILATION RESPONSIVENESS PRE/POST BRONCHODILATOR ADMINISTRATION [...] Recently Relevant to Health Maintenance Results * XR Chest 2 Views (01/24/2025 9:04 AM EDT) Only the most recent of3 resultswithin the time period is included. Anatomical Region Laterality Modality Body Radiographic Ruth [...] 3. Right subcutaneous emphysema has resolved. Code 41654 -------- FINAL REPORT -------- Dictated By: Sacha Oquendo Dictated Date: 01/24/2025 09:26 ET Assigned Physician: Sacha Oquendo Reviewed and Electronically Signed By: Sacha Oquendo Signed Date: 01/24/2025 09:32 ET Workstation ID: [id number] Transcribed By: Self Edit Transcribed Date: 01/24/2025 [...] 3. Right subcutaneous emphysema has resolved. Code 18713 -------- FINAL REPORT -------- Dictated By: Sacha Oquendo Dictated Date: 01/24/2025 09:26 ET Assigned Physician: Sacha Oquendo Reviewed and Electronically Signed By: Sacha Oquendo Signed Date: 01/24/2025 09:32 ET Workstation ID: [id number] Transcribed By: Self Edit Transcribed Date: 01/24/2025 09:26 ET Yamila Villareal HOUSE WORKER GENERAL IMG XR PROCEDURES Final Res ult * XR Chest 1 View (01/07/2025 5:35 AM EDT) Only the most recent of10 resultswithin the time period is included. Anatomical Region Laterality Modality Body Radiographic Ruth ging 01/07/2025 6:29 AM EDT Impressions 01/07/2025 6:32 AM EDT Persistent large amount of soft tissue gas. Previous right lung surgery. No significant extrapleural gas collection. -------- FINAL REPORT -------- Dictated By: Willian Colon Dictated Date: 01/07/2025 06:29 ET Assigned Physician: Willian Colon Reviewed and Electronically Signed By: Willian Colon Signed Date: 01/07/2025 06:32 ET Workstation ID: [id number] Transcribed By: Self Edit Transcribed Date: 01/07/2025 06:29 ET Narrative 01/07/2025 6:32 AM EDT EXAMINATION: CHEST CLINICAL INFORMATION: Post right upper lobectomy COMPARISON: 01/06/25 TECHNIQUE: Portable frontal sitting view of the chest FINDINGS: Devices overlie the patient. A drain projects in the periphery of the right upper chest. Calcified tortuous aorta. Probably no change in cardiac size. The mediastinum is slightly shifted to the right. There is no consolidation in the left lung. Metallic suture in the right hilar region. No dense consolidation in the remaining right lung. No convincing extrapleural gas collection. There is a large amount of soft tissue gas extending into the neck bilaterally Osteophytes in the spine and evidence of lower cervical instrumentation. Procedure Note Willian Colon MD - 01/07/2025 EXAMINATION: CHEST CLINICAL INFORMATION: Post right upper lobectomy COMPARISON: 01/06/25 TECHNIQUE: Portable frontal sitting view of the chest FINDINGS: Devices overlie the patient. A drain projects in the periphery of theright upper chest. Calcified tortuous aorta. Probably no change in cardiac size. Themediastinum is slightly shifted to the right. There is no consolidation inthe left lung. Metallic suture in the right hilar region. No dense consolidation in theremaining right lung. No convincing extrapleural gas collection. There is a large amount of soft tissue gas extending into the neckbilaterally Osteophytes in the spine and evidence of lower cervical instrumentation. IMPRESSION: Persistent large amount of soft tissue gas. Previous right lung surgery.No significant extrapleural gas collection. -------- FINAL REPORT -------- Dictated By: Willian Colon Dictated Date: 01/07/2025 06:29 ET Assigned Physician: Willian Colon Reviewed and Electronically Signed By: Willian Colon Signed Date: 01/07/2025 06:32 ET Workstation ID: [id number] Transcribed By: Self Edit Transcribed Date: 01/07/2025 06:29 ET Shaila PETIT IMG XR PROCEDURES Final Resul t * (ABNORMAL) CBC auto differential (01/05/2025 6:36 AM EDT) Only the most recent of3 resultswithin the time period is included. WBC 7.8 4.8 - 10.8 K/[facility] LAB HEMETOLOGY METHOD 01/05/2025 7:12 AM EDT [facility] RBC 4.40 3.80 - 4.80 M/[facility] LAB HEMETOLOGY METHOD 01/05/2025 7:12 AM [facility] Hemoglobin 13.1 11.5 - 16.0 g/dL LAB HEMETOLOGY METHOD 01/05/2025 7:12 AM [facility] Hematocrit 40.4 35.0 - 47.0 % LAB HEMETOLOGY METHOD 01/05/2025 7:12 AM [facility] MCV 91.0 79.0 - 98.0 FL LAB HEMETOLOGY METHOD 01/05/2025 7:12 AM [facility] MCH 29.5 27.0 - 32.0 pcg LAB HEMETOLOGY METHOD 01/05/2025 7:12 AM [facility] MCHC 32.4 32.0 - 37.0 g/dL LAB HEMETOLOGY METHOD 01/05/2025 7:12 AM [facility] RDW 13.3 11.0 - 15.0 % LAB HEMETOLOGY METHOD 01/05/2025 7:12 AM [facility] Platelets 343 130 - 400 K/mcL LAB HEMETOLOGY METHOD 01/05/2025 7:12 AM [facility] MPV 9.2 7.0 - 11.0 FL LAB HEMETOLOGY METHOD 01/05/2025 7:12 AM [facility] NRBC 0.0 <1.0 % LAB HEMETOLOGY METHOD 01/05/2025 7:12 AM [facility] NRBC Absolute 0.00 <0.10 K/mcL LAB HEMETOLOGY METHOD 01/05/2025 7:12 AM [facility] Neutrophils Relative 73.9 % LAB HEMETOLOGY METHOD 01/05/2025 7:12 AM [facility] Lymphocytes Relative 18.6 % LAB HEMETOLOGY METHOD 01/05/2025 7:12 AM [facility] Monocytes Relative 5.4 % LAB HEMETOLOGY METHOD 01/05/2025 7:12 AM EDT [facility] Eosinophils Relative 1.3 % LAB HEMETOLOGY METHOD 01/05/2025 7:12 AM EDT [facility] Basophils Relative 0.3 % LAB HEMETOLOGY METHOD 01/05/2025 7:12 AM EDT [facility] Immature Granulocytes Relative 0.5 % LAB HEMETOLOGY METHOD 01/05/2025 7:12 AM EDT [facility] Neutrophils Absolute 5.76 1.50 - 7.00 K/mcL LAB HEMETOLOGY METHOD 01/05/2025 7:12 AM EDT [facility] Lymphocytes Absolute 1.45 1.00 - 5.00 K/mcL LAB HEMETOLOGY METHOD 01/05/2025 7:12 AM EDT [facility] Monocytes Absolute 0.42 0.20 - 1.00 K/mcL LAB HEMETOLOGY METHOD 01/05/2025 7:12 AM EDT [facility] Eosinophils Absolute 0.10 0.00 - 0.50 K/mcL LAB HEMETOLOGY METHOD 01/05/2025 7:12 AM EDT [facility] Basophils Absolute 0.02 0.00 - 0.20 K/mcL LAB HEMETOLOGY METHOD 01/05/2025 7:12 AM EDT [facility] Immature Granulocytes Absolute 0.04(H) 0.00 - 0.03 K/mcL LAB HEMETOLOGY METHOD 01/05/2025 7:12 AM EDT [facility] Blood Venous blood specimen / Unknown Venipuncture / Unknown 01/05/2025 6:36 AM EDT 01/05/2025 6:59 AM EDT us Amber PETIT LAB BLOOD ORDERABLES Final Result [facility] [address] [place] [address], [place] [phone] * Basic metabolic panel (01/05/2025 6:36 AM EDT) Only the most recent of7 resultswithin the time period is included. Sodium 139 133 - 145 mmol/L LAB CHEMISTRY METHOD 01/05/2025 7:35 AM [facility] Potassium 4.2 3.5 - 5.5 mmol/L LAB CHEMISTRY METHOD 01/05/2025 7:35 AM [facility] Chloride 104 96 - 110 mmol/L LAB CHEMISTRY METHOD 01/05/2025 7:35 AM [facility] CO2 29 21 - 32 mmol/L LAB CHEMISTRY METHOD 01/05/2025 7:35 AM [facility] Anion Gap 6 3 - 11 LAB CHEMISTRY METHOD 01/05/2025 7:35 AM [facility] Glucose 89 70 - 100 mg/dL LAB CHEMISTRY METHOD 01/05/2025 7:35 AM [facility] BUN 16 5 - 25 mg/dL LAB CHEMISTRY METHOD 01/05/2025 7:35 AM [facility] Creatinine 0.68 0.50 - 1.10 mg/dL LAB CHEMISTRY METHOD 01/05/2025 7:35 AM [facility] eGFR 90 >=60 mL/min/1. 73m2 LAB CHEMISTRY METHOD 01/05/2025 7:35 AM [facility] Comment:Calculation based on the Chronic Kidney Disease Epidemiology Collaboration (CKD-EPI) equation refit without adjustment for race. BUN/Creatinine Ratio 23.5 LAB CHEMISTRY METHOD 01/05/2025 7:35 AM [facility] Calcium 9.2 8.5 - 10.5 mg/dL LAB CHEMISTRY METHOD 01/05/2025 7:35 AM [facility] Blood Venous blood specimen / Unknown Venipuncture / Unknown 01/05/2025 6:36 AM EDT 01/05/2025 6:59 AM EDT Amber PETIT LAB BLOOD ORDERABLES Final Result Performing Organization Address [facility]/ZIP Co de Phone Number [facility] [address] [place] [address], [place] [phone] * Lavender tube (01/03/2025 5:53 AM EDT) [facility] Extra Tube Hold for add-ons. 01/03/2025 8:01 AM EDT [facility] Comment:Auto resulted. Blood Venous blood specimen / Unknown Venipuncture / Unknown 01/03/2025 5:53 AM EDT 01/03/2025 6:19 AM EDT Dick Dos Santos MD LAB BLOOD ORDERABLES Fi nal Result Performing Organization Address City/[facility]/ZIP Co de Phone Number [facility] [address] [place] [address], [place] [phone] * Complete blood count (01/02/2025 6:04 AM EDT) Only the most recent of4 resultswithin the time period is included. [facility] WBC 8.5 4.8 - 10.8 K/mcL LAB HEMETOLOGY METHOD 01/02/2025 6:35 AM EDT [facility] RBC 4.40 3.80 - 4.80 M/mcL LAB HEMETOLOGY METHOD 01/02/2025 6:35 AM EDT [facility] Hemoglobin 12.8 11.5 - 16.0 g/dL LAB HEMETOLOGY METHOD 01/02/2025 6:35 AM EDT [facility] Hematocrit 39.5 35.0 - 47.0 % LAB HEMETOLOGY METHOD 01/02/2025 6:35 AM EDT [facility] MCV 90.4 79.0 - 98.0 FL LAB HEMETOLOGY METHOD 01/02/2025 6:35 AM EDT [facility] MCH 29.3 27.0 - 32.0 pcg LAB HEMETOLOGY METHOD 01/02/2025 6:35 AM EDT [facility] MCHC 32.4 32.0 - 37.0 g/dL LAB HEMETOLOGY METHOD 01/02/2025 6:35 AM EDT [facility] RDW 13.2 11.0 - 15.0 % LAB HEMETOLOGY METHOD 01/02/2025 6:35 AM EDT [facility] Platelets 323 130 - 400 K/mcL LAB HEMETOLOGY METHOD 01/02/2025 6:35 AM EDT [facility] MPV 9.6 7.0 - 11.0 FL LAB HEMETOLOGY METHOD 01/02/2025 6:35 AM EDT [facility] NRBC 0.0 <1.0 % LAB HEMETOLOGY METHOD 01/02/2025 6:35 AM EDT [facility] NRBC Absolute 0.00 <0.10 K/mcL LAB HEMETOLOGY METHOD 01/02/2025 6:35 AM EDT [facility] Blood Venous blood specimen / Unknown Venipuncture / Unknown 01/02/2025 6:04 AM EDT 01/02/2025 6:14 AM EDT us Yamila Villareal NP LAB BLOOD ORDERABLES Final Result [facility] [address] [place] [address], * Phosphorus (01/02/2025 6:04 AM EDT) Only the most recent of3 resultswithin the time period is included. Phosphorus 4.1 2.5 - 4.5 mg/dL LAB CHEMISTRY METHOD 01/02/2025 7:07 AM EDT [facility] Blood Venous blood specimen / Unknown Venipuncture / Unknown 01/02/2025 6:04 AM EDT 01/02/2025 6:13 AM EDT Yamila Villareal NP LAB BLOOD ORDERABLES Final Result Performing Organization Address [facility] de Phone Number [facility] [address] [place] [address], [place] [phone] * Magnesium (01/02/2025 6:04 AM EDT) Only the most recent of3 resultswithin the time period is included. Magnesium 2.0 1.9 - 2.6 mg/dL LAB CHEMISTRY METHOD 01/02/2025 7:07 AM EDT [facility] Blood Venous blood specimen / Unknown Venipuncture / Unknown 01/02/2025 6:04 AM EDT 01/02/2025 6:13 AM EDT Yamila Villareal NP LAB BLOOD ORDERABLES Final Result Performing Organization Address [facility] [facility] Phone Number [facility] [address] [place] [address], [place] [phone] * ECG-Annotated (01/02/2025) us Provider Onbase MD ECG ORDERABLES Final Result * IR Pleural Drain Insert Cath w Image Guidance Right (01/01/2025 5:38 PM EDT) Anatomical Region Laterality Modality Right Interventional R adiology 01/01/2025 5:50 PM EDT Impressions 01/01/2025 5:53 PM EDT 14 Andorran pigtail catheter placed into right apical pneumothorax. -------- FINAL REPORT -------- Dictated By: Claudia Geller Dictated Date: 01/01/2025 17:50 ET Assigned Physician: Claudia Geller Reviewed and Electronically Signed By: Claudia Geller Signed Date: 01/01/2025 17:53 ET Workstation ID: [id number] Transcribed By: Self Edit Transcribed Date: 01/01/2025 17:50 ET Narrative 01/01/2025 5:53 PM EDT Indication: Right-sided pneumothorax with extensive subcutaneous emphysema. Technique: Written informed consent obtained. Patient placed supine on the fluoroscopic table and appropriate region was localized under fluoroscopy and then marked, draped and prepped sterilely. Timeout was performed as per hospital protocol acknowledged by the staff present. Local anesthetic administered after initiation of moderate sedation. Small dermatotomy performed. Under fluoroscopic guidance 18-gauge open end needle was advanced under fluoroscopy into the pneumothorax via the right 2nd intercostal space along the anterior axillary line. Short Amplatz wire advanced through the needle. Tract dilated up to 16 Andorran and placement of a 14 Andorran pigtail catheter. Wire and stiffener removed. Pigtail catheter formed and locked in place. Pneumothorax evacuated through the catheter which was subsequently attached to a Pleur-evac system under wall suction. Dressing applied. Findings: Fluoroscopic imaging demonstrates pigtail catheter placed within right apical pneumothorax. Total patient dose (air kerma): 4 mGy Procedure Note Claudia Geller MD - 01/01/2025 Indication: Right-sided pneumothorax with extensive subcutaneousemphysema. Technique: Written informed consent obtained. Patient placed supine on thefluoroscopic table and appropriate region was localized under fluoroscopyand then marked, draped and prepped sterilely. Timeout was performed as per hospital protocol acknowledged by the staffpresent. Local anesthetic administered after initiation of moderate sedation. Smalldermatotomy performed. Under fluoroscopic guidance 18-gauge open endneedle was advanced under fluoroscopy into the pneumothorax via the [id number] intercostal space along the anterior axillary line. Short Amplatz wireadvanced through the needle. Tract dilated up to 16 Andorran and placementof a 14 Andorran pigtail catheter. Wire and stiffener removed. Pigtailcatheter formed and locked in place. Pneumothorax evacuated through thecatheter which was subsequently attached to a Pleur-evac system under wallsuction. Dressing applied. Findings: Fluoroscopic imaging demonstrates pigtail catheter placed withinright apical pneumothorax. Total patient dose (air kerma): 4 mGy IMPRESSION: 14 Andorran pigtail catheter placed into right apical pneumothorax. -------- FINAL REPORT -------- Dictated By: Claudia Geller Dictated Date: 01/01/2025 17:50 ET Assigned Physician: Claudia Geller Reviewed and Electronically Signed By: Claudia Geller Signed Date: 01/01/2025 17:53 ET Workstation ID: [id number] Transcribed By: Self Edit Transcribed Date: 01/01/2025 17:50 ET us Yamila Villareal HOUSE WORKER GENERAL IMG IR PROCEDURES Final Res ult * CT Chest wo Contrast (01/01/2025 1:33 PM EDT) Anatomical Region Laterality Modality Body Computed Tomogra phy 01/01/2025 1:52 PM EDT Impressions 01/01/2025 1:59 PM EDT Increased moderate right pneumothorax decompressing into the right lateral chest wall via site of prior chest tube. Pneumomediastinum and large subcutaneous air throughout the right greater than left chest, neck, and upper abdomen. -------- FINAL REPORT -------- Dictated By: KEN SALGADO Dictated Date: 01/01/2025 13:52 ET Assigned Physician: KEN SALGADO Reviewed and Electronically Signed By: KEN SALGADO Signed Date: 01/01/2025 13:59 ET Workstation ID: [id number] Transcribed By: Self Edit Transcribed Date: 01/01/2025 13:52 ET Narrative 01/01/2025 1:59 PM EDT PROCEDURE: Chest CT INDICATION: Pneumothorax TECHNIQUE: Chest CT without contrast. Multi planar reformats were created and interpreted. The examination was performed utilizing dose reduction techniques. Total DLP 276 COMPARISON: Same day chest radiograph FINDINGS: LUNGS/PLEURA: Central airways are patent. Right upper lobectomy. Atelectasis in the right middle and lower lobes. Increased, moderate right pneumothorax decompressing into the right lateral chest wall subcutaneous tissues along the anterolateral aspect of the inferior right pleural space, at the site of prior chest tube. Left lung is relatively clear. MEDIASTINUM: Thyroid gland is within normal limits. No mediastinal or hilar lymphadenopathy. Esophagus is normal. Cardiac and is normal in size. No pericardial effusion. Moderate coronary calcifications. Pneumomediastinum. CHEST WALL: No axillary adenopathy. Severe subcutaneous emphysema. UPPER ABDOMEN:The visualized portions of the upper abdomen are unremarkable. BONES: No acute fracture. Scattered degenerative changes seen throughout the bones. Procedure Note Ken Salgado MD - 01/01/2025 PROCEDURE: Chest CT INDICATION: Pneumothorax TECHNIQUE: Chest CT without contrast. Multi planar reformats were createdand interpreted. The examination was performed utilizing dose reductiontechniques. Total DLP 276 COMPARISON: Same day chest radiograph FINDINGS: LUNGS/PLEURA: Central airways are patent. Right upper lobectomy.Atelectasis in the right middle and lower lobes. Increased, moderateright pneumothorax decompressing into the right lateral chest wallsubcutaneous tissues along the anterolateral aspect of the inferior rightpleural space, at the site of prior chest tube. Left lung is relativelyclear. MEDIASTINUM: Thyroid gland is within normal limits. No mediastinal orhilar lymphadenopathy. Esophagus is normal. Cardiac and is normal insize. No pericardial effusion. Moderate coronary calcifications.Pneumomediastinum. CHEST WALL: No axillary adenopathy. Severe subcutaneous emphysema. UPPER ABDOMEN:The visualized portions of the upper abdomen areunremarkable. BONES: No acute fracture. Scattered degenerative changes seen throughoutthe bones. IMPRESSION: Increased moderate right pneumothorax decompressing into the right lateralchest wall via site of prior chest tube. Pneumomediastinum and largesubcutaneous air throughout the right greater than left chest, neck, andupper abdomen. -------- FINAL REPORT -------- Dictated By: KEN SALGADO Dictated Date: 01/01/2025 13:52 ET Assigned Physician: KEN SALGADO Reviewed and Electronically Signed By: KEN SALGADO Signed Date: 01/01/2025 13:59 ET Workstation ID: [id number] Transcribed By: Self Edit Transcribed Date: 01/01/2025 13:52 ET us Shahriar Forrester MD IM CT PROCEDURES Final R esult * APTT (01/01/2025 1:21 PM EDT) Only the most recent of2 resultswithin the time period is included. aPTT 30.3 24.1 - 39.3 sec LAB COAGULATION METHOD 01/01/2025 2:07 PM EDT [facility] Blood Venous blood specimen / Unknown Venipuncture / Unknown 01/01/2025 1:21 PM EDT 01/01/2025 1:31 PM EDT Shahriar Forrester MD LAB BLOOD ORDERABLES Jen l Result Performing Organization Address City/[facility]/ZIP Co de Phone Number [facility] [address] [place] [address], [place] [phone] * Protime-INR (01/01/2025 1:21 PM EDT) Only the most recent of2 resultswithin the time period is included. Protime 11.4 10.6 - 13.9 sec LAB COAGULATION METHOD 01/01/2025 2:07 PM EDT [facility] INR 0.9 LAB COAGULATION METHOD 01/01/2025 2:07 PM EDT [facility] Blood Venous blood specimen / Unknown Venipuncture / Unknown 01/01/2025 1:21 PM EDT 01/01/2025 1:31 PM EDT Shahriar Forrester MD LAB BLOOD ORDERABLES Jen l Result [facility] [address] [place] [address], [place] [phone] * Comprehensive Metabolic Panel (CMP) (01/01/2025 1:21 PM EDT) Sodium 140 133 - 145 mmol/L LAB CHEMISTRY METHOD 01/01/2025 1:54 PM EDT [facility] Potassium 3.9 3.5 - 5.5 mmol/L LAB CHEMISTRY METHOD 01/01/2025 1:54 PM [facility] Chloride 104 96 - 110 mmol/L LAB CHEMISTRY METHOD 01/01/2025 1:54 PM [facility] CO2 29 21 - 32 mmol/L LAB CHEMISTRY METHOD 01/01/2025 1:54 PM [facility] Anion Gap 7 3 - 11 LAB CHEMISTRY METHOD 01/01/2025 1:54 PM [facility] Glucose 92 70 - 100 mg/dL LAB CHEMISTRY METHOD 01/01/2025 1:54 PM [facility] BUN 16 5 - 25 mg/dL LAB CHEMISTRY METHOD 01/01/2025 1:54 PM [facility] Creatinine 0.70 0.50 - 1.10 mg/dL LAB CHEMISTRY METHOD 01/01/2025 1:54 PM [facility] eGFR 90 >=60 mL/min/1. 73m2 LAB CHEMISTRY METHOD 01/01/2025 1:54 PM [facility] Comment:Calculation based on the Chronic Kidney Disease Epidemiology Collaboration (CKD-EPI) equation refit without adjustment for race. BUN/Creatinine Ratio 22.9 LAB CHEMISTRY METHOD 01/01/2025 1:54 PM [facility] Calcium 9.9 8.5 - 10.5 mg/dL LAB CHEMISTRY METHOD 01/01/2025 1:54 PM [facility] AST (SGOT) 20 10 - 42 unit/L LAB CHEMISTRY METHOD 01/01/2025 1:54 PM [facility] ALT (SGPT) 21 10 - 60 unit/L LAB CHEMISTRY METHOD 01/01/2025 1:54 PM [facility] Alkaline Phosphatase 81 42 - 121 unit/L LAB CHEMISTRY METHOD 01/01/2025 1:54 PM [facility] Total Protein 6.5 6.0 - 8.0 g/dL LAB CHEMISTRY METHOD 01/01/2025 1:54 PM EDT [facility] Albumin 3.8 3.2 - 5.0 g/dL LAB CHEMISTRY METHOD 01/01/2025 1:54 PM EDT [facility] Total Bilirubin 0.7 0.0 - 1.4 mg/dL LAB CHEMISTRY METHOD 01/01/2025 1:54 PM EDT [facility] Blood Venous blood specimen / Unknown Venipuncture / Unknown 01/01/2025 1:21 PM EDT 01/01/2025 1:31 PM EDT Shahriar Forrester MD LAB BLOOD ORDERABLES Jen l Result Performing Organization Address [facility]/ZIP Co de Phone Number [facility] [address] [place] [address], [place] [phone] * 12-Lead ECG (01/01/2025 1:11 PM EDT) Ventricular Rate ECG 90 BPM [facility] Atrial Rate 90 BPM [facility] P-R Interval 142 ms GEMUSE QRS Duration 74 ms GEMUSE Q-T Interval 352 ms GEMUSE QTc 430 ms GEMUSE P Wave Balfour 30 degrees GEMUSE R Balfour 3 degrees GEMUSE T Balfour 26 degrees GEMUSE ECG Interpretation Normal sinus rhythm Nonspecific ST and T wave abnormality Abnormal ECG When compared with ECG of 23-DEC-2024 09:24, No significant change was found Confirmed by Sudeep WINTERS YUFENG ([id number]) on 01/01/2025 4:41:47 PM [facility] 01/01/2025 1:11 PM EDT 01/01/2025 4:41 PM EDT Shahriar Forretser MD ECG ORDERABLES Final Res ult Performing Organization Address City/[facility]/ZIP Co de Phone Number [facility] * Culture tissue with gram stain (12/28/2024 1:16 PM EDT) Culture, Tissue No growth aerobically and anaerobically at 5 days. 01/02/2025 9:14 AM EDT [facility] Gram Stain Result No polymorphonuclear leukocytes, No epithelial cells, and No organisms noted 01/02/2025 9:14 AM EDT [facility] Tissue Structure of upper lobe of right lung / Unknown 12/28/2024 1:16 PM EDT 12/28/2024 1:27 PM EDT us Jacquelyn Goldstein MD LAB MICROBIOLOGY - GENERAL ORDER KASEY Final Result Performing Organization Address City/[facility]/ZIP Co de Phone Number [facility] [address] [place] [address], * Tissue grind, digestion and deconvolution (12/28/2024 1:16 PM EDT) Tissue Grind/Digestio n/Decon Performed 12/29/2024 3:05 PM EDT [facility] Tissue Structure of upper lobe of right lung / Unknown 12/28/2024 1:16 PM EDT 12/28/2024 1:28 PM EDT Narrative [facility] - 12/29/2024 3:05 PM EDT Performed at: 01 - [facility] [id number] Emergency Nurse: Leslie Solano MD, Phone: [phone] us Jacquelyn Goldstein MD LAB PATHOLOGY ORDERABLES Final R esult [facility] * Acid fast bacilli stain (12/28/2024 1:16 PM EDT) AFB Stain Result No Acid fast bacilli seen on direct smear (Fuchsin method, 1000x) No Acid Fast Bacilli seen on direct smear 12/28/2024 7:18 PM EDT [facility] Tissue Structure of upper lobe of right lung / Unknown 12/28/2024 1:16 PM EDT 12/28/2024 1:28 PM EDT us Jacquelyn Goldstein MD LAB MICROBIOLOGY - GENERAL ORDER KASEY Final Result [facility] [address] [place] [address], [place] [phone] * Culture fungal, other (12/28/2024 1:16 PM EDT) Culture, Fungus Negative for Fungus after 4 Weeks 01/26/2025 1:13 PM EDT [facility] Tissue Structure of upper lobe of right lung / Unknown 12/28/2024 1:16 PM EDT 12/28/2024 1:28 PM EDT us Jacquelyn Goldstein MD LAB MICROBIOLOGY - GENERAL ORDER KASEY Final Result Performing Organization Address City/[facility] Co de Phone Number [facility] [address] [place] [address], [place] [phone] * Tissue exam (12/28/2024 1:15 PM EDT) Final Diagnosis A. Lung, Right Upper Lobe, wedge resection: [...] - Pathologic tumor score: pT1a, pN0. - Immunohistochemistry : - TTF1: positive in tumor. - Napsin [...] anthracotic lymph nodes, negative for carcinoma (0/8). 2:07 PM EDT [facility] ([facility] Synoptic Checklist LUNG LUNG - All Specimens AJCC 9 [...] tumor Number of Lymph Nodes Examined: 14 Froylan Site(s) Examined: 4R: Lower paratracheal Froylan Site(s) Examined: 8R: Para-esophageal (below savannah) Froylan Site(s) Examined: 9R: Pulmonary ligament Froylan Site(s) Examined: 10R: Hilar Froylan Site(s) Examined: 12R-14R: Intrapulmonary Froylan Site(s) Examined: 7: Subcarinal pTNM CLASSIFICATION (AJCC Version 9) Reporting of pT, pN, and (when applicable) pM categories is based on information available to the pathologist at the time the report is issued. As per the AJCC (Chapter 1, 8th Ed.) it is the managing physician's responsibility to establish the final pathologic stage based upon all pertinent information, including but potentially not limited to this pathology report. pT Category: pT1b pN Category: pN0 ADDITIONAL FINDINGS Additional Findings: Emphysema 5 2:07 PM EDT [facility] ([facility] Gross Description A. Lung, Right Upper Lobe, : Labeled wedge, lung RUL . Received in formalin is a previously incised, 5 g, 5.0 x 2.5 x 1.8 cm wedge of lung resection with a removed linear stapled line that is inked blue. The pleural surface is asnchez-mosqueda. The incision area is contiguous with a [...] 0.3 cm focally anthracotic, sanchez-mosqueda portion of froylan tissue with minimally attached adipose tissue. The specimen is bisected, wrapped in paper and submitted entirely in one cassette, two pieces. C. Lymph Node, Level 9, Right: Labeled level 9, lymph node . Received in formalin, on Telfa, is a 1.0 x 0.4 x 0.4 cm focally anthracotic, sanchez-mosqueda portion of froylan tissue with minimally attached adipose tissue. The specimen bisected, and submitted entirely in one cassette, two pieces. D. Lymph Node, Level 7: Labeled level 7, lymph node . Received in formalin, on Telfa, is a 1.4 x 0.7 x 0.4 cm focally anthracotic, sanchez-mosqueda portion of froylan tissue with minimally attached adipose tissue. The specimen is bisected, and submitted entirely in one cassette, two pieces. E. Lymph Node, R4: Labeled R4, lymph node . Received in formalin, on Telfa, is a 0.6 x 0.4 x 0.2 cm focally anthracotic, sanchez-mosqueda portion of froylan tissue with minimal attached adipose tissue. The specimen is bisected, and submitted entirely in one cassette , two pieces. F. Lymph Node, Level 10, Right: Labeled level 10, lymph node . Received in formalin, on Telfa, is a 0.6 x 0.5 x 0.2 cm focally anthracotic, sanchez-mosqueda portion of froylan tissue with minimal attached adipose tissue. The specimen is bisected, and submitted entirely in one cassette, two pieces. G. Lymph Node, Level 10 #2, Right: Labeled level 10, lymph node . Received in formalin, on Telfa, is a 0.4 x 0.3 x 0.2 cm focally, anthracotic, sanchez-mosqueda portion of froylan tissue with minimally attached adipose tissue. The [...] The cut surfaces show a dark, red, spongiform parenchyma with emphysematous changes with an associated honeycombed pattern at the superior aspect. No palpable or grossly identifiable nodules are identified. Six possible intraparenchymal lymph nodes are identified ranging from 0.4 cm and 1.0 cm in greatest diameter. Marketing Writer sections are submitted in eleven cassettes. 1: [...] inked and one differentially inked blue dye to distinguish microscopically), four pieces 11: Two possible lymph nodes, each bisected (one not inked and one differentially inked blue dye to distinguish microscopically), four pieces KR 2:07 PM EDT [facility] Intraoperative Consultation A. Lung, Right Upper Lobe, : Non-small cell carcinoma. Margin is negative for tumor. -SL 2:07 PM EDT [facility] Disclaimer NOTE: The immunohistochemical tests and in situ hybridization tests were developed and their performance characteristics were determined by [facility]. They have not been cleared or approved by the U.S. Food and Drug Administration. The FDA has determined that such clearance or approval is not necessary. These tests are used for clinical purposes. They should not be regarded as investigational or for research. This laboratory is certified under the Clinical Laboratory Improvement Amendments of 1988 (CLIA) as qualified to perform high complexity clinical laboratory testing. (controls appropriate) Unless otherwise specified, all tissue is 10% NB formalin fixed and paraffin embedded. 2:07 PM EDT [facility] Tissue Structure of upper lobe of right lung / Unknown 12/28/2024 1:15 PM EDT 12/28/2024 1:23 PM EDT Tissue specimen (specimen) Lymph node specimen / Unknown 12/28/2024 1:26 PM EDT 12/28/2024 4:46 PM EDT Tissue specimen (specimen) Lymph node specimen / Unknown 12/28/2024 1:30 PM EDT 12/28/2024 4:46 PM EDT Tissue specimen (specimen) Lymph node specimen / Unknown 12/28/2024 1:35 PM EDT 12/28/2024 4:46 PM EDT Tissue specimen (specimen) Lymph node specimen / Unknown 12/28/2024 1:51 PM EDT 12/28/2024 4:46 PM EDT Tissue specimen (specimen) Lymph node specimen / Unknown 12/28/2024 1:55 PM EDT 12/28/2024 4:46 PM EDT Tissue specimen (specimen) Lymph node specimen / Unknown 12/28/2024 1:56 PM EDT 12/28/2024 4:46 PM EDT Tissue specimen (specimen) Structure of upper lobe of right lung / Unknown 12/28/2024 3:07 PM EDT 12/28/2024 4:46 PM EDT us Jacquelyn Goldstein MD LAB PATHOLOGY ORDERABLES Final R esult [facility] ([facility] [address] [place] [address], [place] [phone] * TH AN ENDOTRACHEAL(NO CHARGE) (12/28/2024 12:41 PM EDT) Amado Green SRNA - 12/28/2024 12:41 PM EDT [facility] 12/28/2024 1:24 PM General Information and Staff Patient location during procedure: OR Other anesthesia staff: [facility] Performed: other anesthesia staff Performed by: [facility] Authorized by: Guy Eugene MD Intubation Additional Comments Placement confirmed with FOB Airway not difficult Urgency: elective Final Airway Details Successful airway: ETT - double lumen left Cuffed: yes Successful intubation technique: direct laryngoscopy Facilitating devices/methods: cricoid pressure Endotracheal tube insertion site: oral Blade: Migue Blade size: #3 ETT DL size (fr): 35 Cormack-Lehane Classification: grade I - full view of glottis Placement verified by: chest auscultation and capnometry Measured from: lips Number of attempts at approach: 1Final airway type: endotracheal airway Indications and Patient Condition Indications for airway management: anesthesia Spontaneous ventilation: present Sedation level: Yes Preoxygenated: yes Soft Tissue Damage: No Dentition Unchanged: No Patient position: sniffing MILS maintained throughout Mask difficulty assessment: 2 - vent by mask + OA or adjuvant +/- NMBA us Guy Eugene MD ANESTHESIA ORDERABLES Edited R esult - Final * Peripheral IV (12/28/2024 12:40 PM EDT) Narrative Amado Moreno SRNA - 12/28/2024 12:40 PM EDT [facility] 12/28/2024 12:40 PM Peripheral IV Inserted by: Gurjit Vargas CRNA Placement Needle size: 18 G Laterality: right Location: antecubital Site prep: alcohol Attempts: 1 Guy Eugene MD ANESTHESIA ORDERABLES Final Re sult * TH AN ENDOTRACHEAL(NO CHARGE) (12/28/2024 12:31 PM EDT) Amado Green SRNA - 12/28/2024 12:31 PM EDT [facility] 12/28/2024 1:23 PM General Information and Staff Patient location during procedure: OR Other anesthesia staff: [facility] Performed: other anesthesia staff Performed by: [facility] Authorized by: Guy Eugene MD Intubation Airway not difficult Urgency: elective Final Airway Details Successful airway: ETT Cuffed: yes Successful intubation technique: direct laryngoscopy Facilitating devices/methods: cricoid pressure Endotracheal tube insertion site: oral Blade: Migue Blade size: #3 ETT size (mm): 8.5 Cormack-Lehane Classification: grade I - full view of glottis Placement verified by: chest auscultation and capnometry Cuff volume (mL): 8 Measured from: lips ETT to lips (cm): 21 Number of attempts at approach: 1Final airway type: endotracheal airway Indications and Patient Condition Indications for airway management: anesthesia Spontaneous ventilation: present Sedation level: Yes Preoxygenated: yes Soft Tissue Damage: No Dentition Unchanged: No Patient position: neutral MILS maintained throughout Mask difficulty assessment: 2 - vent by mask + OA or adjuvant +/- NMBA us Guy Eugene MD ANESTHESIA ORDERABLES Edited R esult - Final * TH AN ARTERIAL LINE (CHARGE) (12/28/2024 12:08 PM EDT) Amado Green SRNA - 12/28/2024 12:08 PM EDT [facility] 12/28/2024 12:39 PM Arterial Line Performed by: [facility] Authorized by: Guy Eugene MD Consent: Verbal consent obtained. Written consent obtained. Risks and benefits: risks, benefits and alternatives were discussed Consent given by: patient Patient understanding: patient states understanding of the procedure being performed Patient consent: the patient's understanding of the procedure matches consent given Procedure consent: procedure consent matches procedure scheduled Relevant documents: relevant documents present and verified Test results: test results available and properly labeled Site marked: the operative site was marked Imaging studies: imaging studies available Required items: required blood products, implants, devices, and special equipment available Patient identity confirmed: verbally with patient, arm band, hospital-assigned identification number and provided demographic data Time out: Immediately prior to procedure a time out was called to verify the correct patient, procedure, equipment, support specialist and site/side marked as required. Preparation: Patient was prepped and draped in the usual sterile fashion. Indications: hemodynamic monitoring Location: left radial Sedation: Patient sedated: yes Sedatives: see [facility] for details Analgesia: see MAR for details Vitals: Vital signs were monitored during sedation. Jose Enrique's test normal: yes Needle gauge: 20 Seldinger technique: Seldinger technique used Number of attempts: 1 Post-procedure: dressing applied Post-procedure CMS: normal Patient tolerance: patient tolerated the procedure well with no immediate complications Staffing Other anesthesia staff: [facility] us Guy Eugene MD ANESTHESIA ORDERABLES Edited R esult - Final * Prepare RBC: 2 Units (12/28/2024 11:10 AM EDT) Product Code [id number] [facility]/28[facility]24 [facility] [id number] 12/29/19 25 4:34 PM EDT [facility] Crossmatch Compatible 12/28/2024 12:[facility] Dispense Status Released From Crossmatch 12/28/2024 4:34 PM [facility] Unit ABO Rh OPOS 12/28[facility]2024 4:[facility] Expiration Date Time [id number] 12/28/2024 4:34 PM [facility] Unit Blood Type 5100 12/28/2024 4:34 PM EDT [facility] Product Code [id number] 12/28/2024 4:34 PM EDT [facility] Unit Number [id number] 12/29/19 4:34 PM EDT [facility] Crossmatch Compatible 12/28/2024 12:19 PM EDT [facility] Dispense Status Released From Crossmatch 12/28/2024 4:34 PM EDT [facility] Unit ABO Rh OPOS 12/28/2024 4:34 PM EDT [facility] Unit Expiration Date Time [id number] 12/28/2024 4:34 PM EDT [facility] Unit Blood Type 5100 12/28/2024 4:34 PM EDT [facility] Blood Venous blood specimen / Unknown 12/28/2024 11:10 AM EDT 12/23/2024 9:32 AM EDT us Jacquelyn Goldstein MD BLOOD BANK PRODUCT ORDERABLES Fi nal Result [facility] [address] [place] [address], * Pulmonary function testing: Carbon Monoxide Diffusing Capacity, Spirometry with Bronchodilator, Plethysmography (12/26/2024 9:28 AM EDT) Narrative Yolande Sinclair MD - 12/26/2024 7:36 PM EDT Table formatting from the original result was not included. Images from the original result were not included. [facility] [address] [place] [address] Pulmonary Functions Report Date of service: 12/26/24 Patient Name: Chasity Mae Date of : 1950 Age: 74 [...] restrictive changes Yolande Sinclair MD Yamila Villareal HOUSE WORKER GENERAL PFT ORDERABLES Final Resul t * ECG 12 lead - Procedural (No Charge) (12/23/2024 9:24 AM EDT) Ventricular Rate ECG 62 BPM GEMUSE Atrial Rate 62 BPM GEMUSE P-R Interval 134 ms GEMUSE QRS Duration 76 ms GEMUSE Q-T Interval 402 ms GEMUSE QTc 408 ms GEMUSE P Wave Balfour 30 degrees GEMUSE R [place] 26 degrees GEMUSE T B[place] 47 degrees GEMUSE ECG Interpretation Normal sinus rhythm Low voltage QRS Borderline ECG No previous ECGs available Confirmed by DEENA URIBE ([id number]) on 12/23/2024 11:08:48 PM GEMUSE 12/23/2024 9:24 AM EDT 12/23/2024 11:08 PM EDT Jacquelyn Goldstein MD ECG ORDERABLES Final Result GEMUSE * Type and screen (12/23/2024 9:10 AM EDT) ABO Group O 12/23/2024 11:27 AM EDT [facility] Rh Type Positive 12/23/2024 11:27 AM EDT [facility] Antibody Screen Negative 12/23/2024 11:27 AM EDT [facility] Blood Venous blood specimen / Unknown Venipuncture / Unknown 12/23/2024 9:10 AM EDT 12/23/2024 9:32 AM EDT us Jacquelyn Goldstein MD LAB BLOOD BANK TEST ORDERABLES F inal Result [facility] [address] [place] [address], * CT Lung Screening (11/29/2024 10:32 AM [...] Signed Date: 12/02/2024 10:33 ET Workstation ID: [id number] Transcribed By: Self Edit Transcribed Date: 12/02/2024 10:20 ET Narrative 12/02/2024 10:33 AM EDT EXAMINATION: CT CHEST WITHOUT CONTRAST LUNG CANCER SCREENING, LOW DOSE CLINICAL INFORMATION: Lung cancer screening. Current smoker. COMPARISON: None TECHNIQUE: Multidetector CT. Examination of the chest. Examination of the chest without IV contrast. Reformatting in the coronal and sagittal planes. Device: [employer] VCT DLP: 104 mGy-cm CTDI: 3.22 Dose [...] joint on each side Jacquelyn Goldstein MD [facility] CT PROCEDURES Final Result * (ABNORMAL) Lipid panel (07/13/2007) LDL/HDL Ratio 4 0 - 4 Triglycerides 129 0 - 150 mg/dL Cholesterol 220(A) 0 - 200 mg/dL HDL 58 >=40 mg/dL LDL Cholesterol 137(A) 0 - 100 mg/dL Blood Venous blood specimen / Unknown us Historical Provider LAB BLOOD ORDERABLES Jen l Result from Last 3 Months or Most Recently Relevant to Health Maintenance Insurance MEDICARE [facility] Advance Directives Documents on File Type Date Recorded Patient Marketing Writer Expl anation Advance Directives and Living Will 01/02/2025 9:05 AM MOL Advance Directives and Living Will 12/29/2024 9:27 AM Steph Millersus Health Care Proxy * Full Code - Default (Latest Code Status on File) Date Activated Date Inactivated Comments 01/01/2025 2:02 PM 01/07/2025 5:04 PM This is orde r is used when code status has not been discussed with the patient, or code status is otherwise unknown/unconfirmed To update the patient's code status, place a code status order. Do not modify or discontinue any currently active code status orders. * Full Code - Default Date Activated Date Inactivated Comments 12/28/2024 4:28 PM 12/31/2024 2:43 PM This is orde r is used when code status has not been discussed with the patient, or code status is otherwise unknown/unconfirmed To update the patient's code status, place a code status order. Do not modify or discontinue any currently active code status orders. * Full Code - Default Date Activated Date Inactivated Comments 12/28/2024 10:20 AM 12/28/2024 4:28 PM This is ord er is used when code status has not been discussed with the patient, or code status is otherwise unknown/unconfirmed To update the patient's code status, place a code status order. Do not modify or discontinue any currently active code status orders. Healthcare Agents on File Name Relationship Healthcare Agent [facility] Communication Steph Mae Spouse Health Care Agent Bhakti Ramirez Daughter [facility] are Agent Care Teams Strategic Business Development Relationship Specialty Start Date End Date Dona Man MD [address] [place] [id number] PCP - General Internal Medicine 11/28/24
--- OUTSIDE RECORDS SUMMARY | 2025-01-27 09:49 | XMS_ITS | Encounter Summary ---
Author Organization [facility] Address [address] [facility] [address] [place] [address] Phone Care Team Providers Care Secondary Special Education Teacher Name Role Phone Johanne Gupta MD Primary Care Provider Encounter Details Date Type Department Care Team (Late st Contact Info) Description 11/16/2017 Procedure Pass [facility] [place] [address] Social History Tobacco Use Types Packs/Day Years [...] on filedocumented in this encounter Care Teams Secondary Special Education Teacher Relationship Specialty Start Date End Date Johanne Gupta MD [address] [place] [id number] [email or web address] PCP - General Gastroenterology 11/05/17 documented as of this encounter Additional Source Comments The information contained in this document represents components of the legal health record. It is not the complete legal health record.[facility]
--- OUTSIDE RECORDS SUMMARY | 2025-01-27 09:49 | XMS_ITS | Encounter Summary ---
Author Organization [facility] Address [address] [place] [address] Phone Care Team Providers Care Logistics/Shipper Name Role Phone Teja Ambrosio MD Primary Care Provider [phone] Johanne Gupta MD Primary Care Provider Encounter Details Date Type Department Care Team (Late st Contact Info) Description 09/02/2016 Transcribe Orders [facility] Cardiac Rehab [facility] [address] [place] [address] Madison Dugan, RN [facility] [place] [address] Pre-op exam (Primary Dx) Social History Tobacco [...] exam documented in this encounter Care Teams Logistics/Shipper Relationship Specialty Start Date End Date Teja Ambrosio MD [address] [place] [address] [email or web address] PCP - General Internal Medicine 09/02/16 11/04/17 Johanne Gupta MD [address] [place] [address] [email or web address] PCP - General Gastroenterology 11/05/17 documented as of this encounter Additional Source Comments The information contained in this document represents components of the legal health record. It is not the complete legal health record.[facility]
--- OUTSIDE RECORDS SUMMARY | 2025-01-27 09:49 | XMS_ITS | Encounter Summary ---
Author Organization [facility] Address [address] [place] [address] Phone Care Team Providers Care Die Lay Out Worker Name Role Phone Unknown, Unknown Primary Care Provider Teja Salmon MD Primary Care Provider [phone] Johanne Gupta MD Primary Care Provider Reason for Referral * MRI/CAT Scan - Closed Specialty Diagnoses / Procedures Referred By Anshul navarrete Referred To Contact Radiology Diagnoses Pain Procedures MRI Cervical Spine MRI Neck Johanne Gupta MD Phone: tel: fax: [email or web address] Referral ID Status Reason Start Date Expiration Date Visits Re quested Visits Authorized [id number] Closed 08/12/2016 11/19/2016 1 1 Encounter Details Date Type Department Care Team (Late st Contact Info) Description 08/12/2016 Ancillary Orders [facility] [place] [address] Johanne Gupta MD [address] [place] [phone] [email or web address] Social History Tobacco Use [...] providers of potentially importantfindings. Johanne Gupta MD [facility] MR XSPECIALTY Jen l Result documented in this encounter Visit Diagnoses Diagnosis Pain Generalized pain Pain Generalized pain documented in this encounter Care Teams Die Lay Out Worker Relationship Specialty Start Date End Date Unknown, Unknown, MD PCP - General 01/26/14 09/01/16 Teja Ambrosio MD [address] [place] [address] [email or web address] PCP - General Internal Medicine 09/02/16 11/04/17 Johanne Gupta MD [address] [place] [address] [email or web address] PCP - General Gastroenterology 11/05/17 documented as of this encounter Additional Source Comments The information contained in this document represents components of the legal health record. It is not the complete legal health record.[facility]
--- OUTSIDE RECORDS SUMMARY | 2025-01-27 09:49 | XMS_ITS | Clinical Summary ---
Author Organization [facility] Address [address] [address] Phone Care Team Providers Care Neurology Technologist Name Role Phone Johanne Gupta MD Primary [...] EST) CHOLESTEROL 210(Abnor amelia H) <200 mg/dL [facility] TRIGLYCERIDES 99 0 - 200 mg/dL [facility] LDL CHOLESTEROL, CALCULATED 134(Abnor amelia H) <130 mg/dL [facility] Comment: LDL REFERENCE RANGES ADULT LEVELS RECOMMENDED (DESIRABLE) <130 MG/DL RISK LEVEL 130-159 MG/DL RISK INDICATOR >160 MG/DL HDL CHOLESTEROL 56 mg/dL [facility] Comment: HDL REFERENCE RANGES MALE FEMALE FAVORABLE >55 MG/DL > 65 MG/DL RISK LEVEL 35 - 55 MG/DL 45 - 65 MG/DL RISK INDICATOR <35 MG/DL <45 MG/DL 05/16/2016 9:09 AM EST 05/16/2016 9:18 AM EST us Conversion Provider Not In Sys LAB BLOOD ORDERAB LES Final Result [facility] [address] [place] [address], [facility] * COLONOSCOPY FOR RESULT ENTRY ONLY (10/06/2013) Colonoscopy History of diverticulo sis, history of polyps and rectal bleeding. rpt 5 yrs us Historical Provider HEALTH MAINTENANCE Final Result from Last 3 Months or Most Recently Relevant to Health Maintenance Insurance MEDICARE PART A & B [facility] TOTAL CHOICE INDEMNITY MEDICARE PART A & B [address] TOTAL CHOICE INDEMNITY MEDICARE PART A & B [address] TOTAL CHOICE INDEMNITY MEDICARE PART A & B Member Subscriber Plan / Payer (Ef fective 2000-Present) Name:ElvinFrederic arizmendirebecca De La Vega Member ID:[id number] Relation to Subscriber:Self Name:JudymannyChasity arizmendi Subscriber ID:[id number] Payer ID:[id number] Group ID:Not on file Type:Medicare Address: [facility] [employer] [facility].[address] [place] [phone] [facility] TOTAL CHOICE INDEMNITY MEDICARE PART A & B [facility] TOTAL CHOICE INDEMNITY MEDICARE PART A & B [facility] TOTAL CHOICE INDEMNITY MEDICARE PART A & B [address] TOTAL CHOICE INDEMNITY MEDICARE PART A & B [address] TOTAL CHOICE INDEMNITY MEDICARE PART A & B [facility] TOTAL CHOICE INDEMNITY Care Teams Neurology Technologist Relationship Specialty Start Date End Date Johanne Gupta MD [address] [place] [phone] [email or web address] PCP - General Gastroenterology 11/05/17 Additional Source Comments The information contained in this document represents components of the legal health record. It is not the complete legal health record.[facility]
--- OUTSIDE RECORDS SUMMARY | 2025-01-27 09:49 | XMS_ITS | Encounter Summary ---
Author Organization [facility] Address [address] [place] [address] Phone Care Team Providers Care Grinder Watch Parts Name Role Phone Unknown, Unknown Primary Care Provider Teja Salmon MD Primary Care Provider [phone] Johanne Gupta MD Primary Care Provider Encounter Details Date Type Department Care Team (Late st Contact Info) Description 08/12/2016 Procedure Pass [facility] [place] [address] Social History Tobacco Use Types Packs/Day Years [...] on filedocumented in this encounter Care Teams [employer] Relationship Specialty Start Date End Date Unknown, Unknown, PCP - General 01/26/14 09/01/16 Teja Ambrosio MD [address] [place] [phone] [email or web address] PCP - General Internal Medicine 09/02/16 11/04/17 Johanne Gupta MD [address] [place] [address] [email or web address] PCP - General Gastroenterology 11/05/17 documented as of this encounter Additional Source Comments The information contained in this document represents components of the legal health record. It is not the complete legal health record.[facility]
--- OUTSIDE RECORDS SUMMARY | 2025-01-27 09:49 | XMS_ITS | Encounter Summary ---
Author Organization [facility] Address [address] [place] [address] Phone Care Team Providers Care Attacher Name Role Phone Johanne Gupta MD Primary Care Provider Reason for Referral * MRI/CAT Scan - Closed Specialty Diagnoses / Procedures Referred By Anshul navarrete Referred To Contact Radiology Diagnoses Persistent cough Procedures CT Chest Johanne Gupta MD Phone: tel: fax: mailto:[email or web address] Referral ID Status Reason Start Date Expiration Date Visits Re quested Visits Authorized [id number] Closed 11/16/2017 11/18/2018 1 1 Encounter Details Date Type Department Care Team (Late st Contact Info) Description 11/16/2017 Ancillary Orders [facility] [place] [address] Johanne Gupta MD [address] [place] [phone] [email or web address] Persistent cough Social History Tobacco Use Types [...] This report has been forwarded to an [employer] communication system whichwill electronically notify appropriate providers of potentially importantfindings. Johanne Gupta MD [facility] CT CHEST Final Result documented in this encounter Visit Diagnoses Diagnosis Persistent cough Persistent cough documented in this encounter Care Teams Attacher Relationship Specialty Start Date End Date Johanne Gupta MD [address] [place] [phone] [email or web address] PCP - General Gastroenterology 11/05/17 documented as of this encounter Additional Source Comments The information contained in this document represents components of the legal health record. It is not the complete legal health record.[facility]
--- OUTSIDE RECORDS SUMMARY | 2025-01-27 09:49 | XMS_ITS | Encounter Summary ---
Author Organization [facility] Address [address] [place] [address] Phone Care Team Providers Care Water Systems Engineer Name Role Phone Johanne Gupta MD Primary Care Provider Encounter Details Date Type Department Care Team (Late st Contact Info) Description 11/20/2017 Ancillary Orders [facility] Radiology - [place] [address] Johanne Gupta MD [address] [place] [phone] [email or web address] Screening breast examination Social History [...] target duedate for the next mammogram. Result [facility] Johanne Gupta MD IMG MG EXAMS Final Result documented in this encounter Visit Diagnoses Diagnosis Screening breast examination Other screening breast examination Screening breast examination Other screening breast examination documented in this encounter Care Teams Water Systems Engineer Relationship Specialty Start Date End Date Johanne Gupta MD [address] [place] [phone] [email or web address] PCP - General Gastroenterology 11/05/17 documented as of this encounter Additional Source Comments The information contained in this document represents components of the legal health record. It is not the complete legal health record.[facility]
== END 2025-01-27 09:18 | disposition home or self-care (01) ==
LOC: HO.HMGCX 09:17
PROVIDERS: PCP Internal Medicine; Visit Provider Internal Medicine
DX: M87.9 Osteonecrosis, unspecified (principal)
CPT/HCPCS: 73030

== ENCOUNTER → 2025-01-27 09:22 | Outpatient (BNV) | payer MEDICARE, OTHER, SELFPAY | PROVIDERS: PCP Internal Medicine; Visit Provider Radiology Diagnostic Radiology | DX: M19.011 Primary osteoarthritis, right shoulder (principal); M75.31 Calcific tendinitis of right shoulder | CPT/HCPCS: 73030 ==

== ENCOUNTER 2025-01-31 09:53 | Outpatient (AMB) | payer MEDICARE, OTHER, SELFPAY ==
[2025-01-31 10:00] VITALS: BP 124/70; PULSE 68; RESP 19; TEMP 36.8; O2SAT 96; BMI 23.6
--- NOTE | 2025-01-31 10:00 | A.OFFPC_ITS ---
Vital Signs 01/31/25 10:00 Height 5 ft Weight 121 lb BMI 23.6 BP 124/70 Blood Pressure Location Rt brachial Position Sitting Respiration 19 Pulse 68 Pulse Source Pulse Oximeter Temp 98.2 F Temp Source Oral Pulse Oximetry (%) 96 Oxygen Delivery Method Room Air Intake Visit Reasons: 1 month f/up Intake Note: Pt is here today for 1 month follow up visit. Allergies Sulfa (Sulfonamide Antibiotics) Allergy (Unknown, Verified 01/31/25 10:01) fever and redness sulfamethoxazole (From Bactrim) Allergy (Unknown, Verified 01/31/25 10:01) unknown trimethoprim (From Bactrim) Allergy (Unknown, Verified 01/31/25 10:01) unknown adhesive tape Allergy (Verified 01/31/25 10:01) Rash Medication List - Last Reconciled 01/31/25 by Dona Man MD albuterol sulfate 90 mcg/actuation 2 puffs inhalation Q4-6H PRN 30 days cholecalciferol (vitamin D3) 50 mcg PO DAILY hydrocortisone 2.5% 1 appl topical BID PRN 7 days lactobacillus combination no.9 (Adult 50 Plus Probiotic) PO meloxicam 15 mg PO DAILY PRN metoprolol succinate ER 50 mg PO DAILY naproxen sodium (Aleve) 220 mg PO Q12H PRN Tobacco use date assessed: 01/31/25 Fall risk assessment: No Falls in past year Last assessed Fall Risk: 01/31/25 Dental Screening Dental Screen Date: 12/22/24 HPI 1 month f/up HPI Details Patient presents for follow-up of hospitalization for right upper lobectomy for stage IA lung cancer on December 28. Patient recovered well. She has a follow-up with thoracic surgeon in June for surveillance CT. Hypertension has been controlled on metoprolol. [facility] Medical History (Updated 01/31/25 @ 11:00 by Dona Man MD) Rectal bleeding HTN (hypertension) Lung cancer Colon cancer screening Nausea vomiting and diarrhea Lumbar spinal stenosis Annual physical exam Fatigue Hyperlipidemia History of mammogram Surgical History H/O colonoscopy S/P cervical spinal fusion Family History Father No problems noted. Mother Hypertension Social History Housing: House Alcohol intake: current Alcohol intake frequency: a few times a week Patient Tobacco Use Status: Former Tobacco user e-Cigarette/Vaping Use: Never Used Second Hand Smoke Exposure: No service: No Current occupational status: employed Current occupation: [employer] Current occupational exposures/hazards: No Cognitive needs: No Hearing needs: No Vision needs: Yes Questionnaire PHQ-9 Over the last 2 weeks, how often have you been bothered by any of the following problems? 1. Little interest or pleasure in doing things: not at all 2. Feeling down, depressed, or hopeless: not at all 3. Trouble falling or staying asleep, or sleeping too much: not at all 4. Feeling tired or having little energy: not at all 5. Poor appetite or overeating: not at all 6. Feeling bad about yourself - or that you are a failure or have let yourself or your family down: not at all 7. Trouble concentrating on things, such as reading the newspaper or watching television: not at all 8. Moving or speaking so slowly that other people could have noticed. Or the opposite - being so fidgety or restless that you have been moving around a lot more than usual: not at all 9. Thoughts that you would be better off or of hurting yourself in some way: not at all Total score: 0 Depression Screening Interpretation: Negative Depression Screening Done: Yes Source: Developed by Drs. Devin Mccoy, Lakisha Buck, Karl Mcgowan and colleagues, with an educational diamante from [employer]. Thrive Questionnaire Date Thrive assessed: 10/05/24 I am a: Patient What is your living situation today?: I have a steady place to live Within the past 12 months, did the food you bought not last and you didn't have the money to get more?: Never true Within the past 12 months, did you worry whether your food would run out before you got money to buy more?: Never true Do you have trouble paying for medicines?: No Do you have trouble getting transportation to medical appointments?: No Do you have trouble paying your heating and electricity bill?: No Do you have trouble taking care of your child, family member or friend?: No Do you have trouble with day-to-day activities such as bathing, preparing meals, shopping, managing finances, etc.?: No Are you currently unemployed and looking for a job?: No Are you interested in more education?: Yes Please select the resources that you would like help with: Education Currently or been in a relationship where the following occur: No concerns reported THRIVE Score: 0 DIETER-7 AMB Questionnaire DIETER-7 Date DIETER - 7 assessed: 12/27/24 Feeling nervous, anxious, or on edge: 0 = Not at all Not being able to stop or control worryin = Not at all Worrying too much about different things: 0 = Not at all Trouble relaxin = Not at all Being so restless that it is hard to sit still: 0 = Not at all Becoming easily annoyed or irritable: 0 = Not at all Feeling afraid as if something awful might happen: 0 = Not at all Total DIETER-7 score (0-4 normal; 5-9 mild; 10-14 moderate; 15-21 severe): 0 Source: Developed by Drs. Devin Mccoy, Lakisha Buck, Karl Mcgowan and colleagues, with an educational diamante from [employer]. Review of Systems Const All systems reviewed & are unremarkable except as noted in HPI and below ENT Reports no additional complaints Card Reports no additional complaints Resp Reports no additional complaints GI Reports no additional complaints Reports no additional complaints Physical exam (Primary Care) Vital Signs: Last Vital Signs Temp 98.2 F 01/31/25 10:00 Pulse 68 01/31/25 10:00 Resp 19 01/31/25 10:00 BP 124/70 01/31/25 10:00 Pulse Ox 96 01/31/25 10:00 Oxygen Delivery Method Room Air 01/31/25 10:00 BMI result Body Mass Index 23.6 Tobacco/Smoking Status: Tobacco use Status Tobacco use date assessed 01/31/25 01/31/25 10:08 Patient Tobacco Use Status Former Tobacco user 01/31/25 10:00 e-Cigarette/Vaping Use Never Used 01/31/25 10:00 PHQ-9: PHQ-9 Score PHQ-9: Total score 0 01/31/25 10:08 Depression Screening Interpretation: Negative Thrive Assessment: Date of Thrive Assessment Date Thrive assessed 10/05/24 01/31/25 10:00 Currently or been in a relationship where the following occur: No concerns reported Const General: no acute distress HENMT Face and sinus: Yes normal facial exam Eyes General: appearance normal, both eyes and all related structures Neck Neck: Yes no lymphadenopathy and Yes supple Resp Effort & Inspection: normal respiratory effort Auscultation: clear to auscultation bilaterally Cardio Rhythm: regular rhythm Heart sounds: S1 normal heart sound present and S2 normal heart sound present Coding Level of Care Code Est Pt Level 4 (51455) Diagnoses Rectal bleeding K62.5 HTN (hypertension) I10 Lung cancer C34.90 Assessment & Plan Assessment & Plan (1) Rectal bleeding: Comment: one episode 2023, negative Cologuard 07/2023, patient requested referral to GI for colonoscopy Code(s): K62.5 - Hemorrhage of anus and rectum Category: Medical Plan: For One episode of rectal bleeding last year patient requested a referral to [employer] plant [employer] operator for colonoscopy. her last colonoscopy was in 2013 in [facility] (2) HTN (hypertension): Code(s): I10 - Essential (primary) hypertension Category: Medical Plan: Continue metoprolol (3) Lung cancer: Comment: s/p RUL lobectomy mediastinal lymphadenectomy Dr. Goldstein 12/2024, acinar adenocarcinoma stage 1a, f/u surveillance CT in June 2025 Code(s): C34.90 - Malignant neoplasm of unspecified part of unspecified bronchus or lung Category: Medical Plan: Follow-up with the thoracic surgeon at [place] for surveillance CT in June
--- OUTSIDE RECORDS SUMMARY | 2025-01-31 11:16 | XMS_ITS | Clinical Summary ---
Author Organization [facility] Address [address] [place] [address] Phone Care Team Providers Care Analytical Scientist Name Role Phone Dona Man MD Primary Care Provider [phone] Allergies Active Allergy Reactions Criticality Noted Date [...] Daily Amount: 20 mg 15 tablet 12/31/2024 Active Active Problems Problem Noted Date Diagnosed [...] AM EDT Office Visit Thoracic Surgery - [place] 299 [facility] [address] [place] [phone] Yamila Villareal NP History of lung cancer (Primary Dx) 01/24/2025 8:56 AM EDT - 01/24/2025 11:59 PM EDT Hospital Encounter [facility] Xray [address] [place] [phone] History of lung cancer Discharge Disposition: Home or Self Care 01/11/2025 2:45 PM EDT Office Visit Thoracic Surgery - [place] [address] [phone] Will Reyes PA History of lung cancer (Primary Dx) 01/11/2025 2:00 PM EDT - 01/11/2025 11:59 PM EDT Hospital Encounter [facility] Xray [address] [place] [phone] Pulmonary nodule; Malignant neoplasm of upper lobe of right lung (CMS/HCC V24, CMS/HCC V28) Discharge Disposition: Home or Self Care 01/01/2025 12:27 PM EDT - 01/07/2025 2:58 PM EDT Hospital Encounter [facility] [address] [place] [phone] Shahriar Forrester MD Rousou, Laki, MD Seralathan, Manikandan, MD Pneumothorax, right (Primary Dx) Discharge Disposition: Home or Self Care 12/28/2024 11:30 AM EDT - 12/28/2024 3:30 PM EDT Surgery [facility] Main OR [address] [place] [address] Jacquelyn Goldstein MD Navigational bronchoscopy dye marking, Bruce right upper lobe wedge completion right upper lobectomy [86625 (CPT ) +5 more] 12/28/2024 11:28 AM EDT Anesthesia Event [facility] Main OR [address] [place] [phone] Guy Eugene MD Lema Alava, Steven SRNA 12/28/2024 10:12 AM EDT - 12/31/2024 12:43 PM EDT Hospital Encounter [facility] [address] [place] [address] Jacquelyn Goldstein MD Bell, Alistair A, MD Malignant neoplasm of upper lobe of right lung (CMS/HCC V24, CMS/HCC V28) (Primary Dx); Pulmonary nodule Discharge Disposition: Home or Self Care 12/26/2024 8:09 AM EDT - 12/26/2024 11:59 PM EDT Hospital Encounter [facility] Pulmonary [address] [place] [address] Lung nodule Discharge Disposition: Home or Self Care 12/15/2024 9:15 AM EDT Consult Thoracic Surgery - [place] [address] [phone] Jacquelyn Goldstein MD Pulmonary nodule (Primary Dx); Lung nodule; Smoker; Neoplasm 12/15/2024 Telephone Thoracic Surgery - [place] [address] [phone] Yaneth Vuong [place] 12/05/2024 Telephone Lung Screening Program - [place] [address] [phone] Radha Fair [place] 11/29/2024 10:24 AM EDT - 11/29/2024 11:59 PM EDT Hospital Encounter [facility] CT Scan [address] [place] [address] Encounter for screening for lung cancer; Former smoker Discharge Disposition: Home or Self Care 11/29/2024 10:15 AM EDT Office Visit Lung Screening Program - [place] [address] [phone] Yamila Villareal, MANUELITO Encounter for screening for malignant neoplasm of lung in former smoker who quit in past 15 years with 30 pack year history or greater (Primary Dx) from Last 3 Months Immunizations Immunization Administration Dates Next Due Influenza trivalent, with pr eservative (Fluzone; Afluria) 6mo and older 02/15/2007,04/04/2005,02/23/2003 Surgical History Surgery Date Site/Laterality Comments OTHER SURGICAL HISTORY PROCEDURE: VA OSTEOTOMY SPINE PST/PSTLAT APPR 1 VRT SGM CRV; COMMENT: Fusion COLONOSCOPY W/ POLYPECTOMY 10/05/2006 PROCEDURE: VA COLSC FLX W/RMVL OF TUMOR POLYP LESION SNARE TQ; COMMENT: Small hyperplastic polyp CERVICAL DISCECTOMY CERVICAL FUSION BREAST BIOPSY LUNG REMOVAL, PARTIAL 12/28/2024 Right RUL Lobectomy Medical History Medical History Date Comments Diverticulosis of colon (kyleigh sanchez mention of hemorrhage) 10/05/2006 DX:Diverticulosis of colon [...] care for your loved ones. For example, childhood teacher or elderly care for an older adult? [...] this topic Medical Devices Implanted Type Area Self Sealing Fuel Tank Builder Device Identifier Shelf Expiration Date Model / Serial / Lot Hemostat Absorb Surgicel Nu-Knit 3x4in - Sna - [id number] Implanted:Qty: 1 on 12/28/2024 by Jacquelyn Goldstein MD at [facility] Hemostasis Right: Chest [employer] [id number] 11/17/2028 1943S / NA / [id number] Sealant Progel Air Pleural 4ml - Sna - [id number] Implanted:Qty: 1 on 12/28/2024 by Jacquelyn Goldstein MD at [facility] Hemostasis Right: Chest CR BARD - DAVOL DIV [id number] 01/18/2026 [id number] / NA / [id number] Sealant Fibrin Vistaseal 10ml - [id number] - [id number] Implanted:Qty: 1 on 12/28/2024 by Jacquelyn Goldstein MD at [facility] Hemostasis Right: Chest [employer] [id number] 05/31/2026 [id number] / [id number] / [id number] Procedures Procedure Name Priority Date/Time Associated [...] LINE (CHARGE) Routine 12/28/2024 12:08 PM EDT VA REMOVAL OF LUNG OTHER THAN PNEUMONECTOMY SINGLE LOBE 12/28/2024 11:28 AM EDT Pulmonary nodule Case Notes [employer] VA THORACOSCOPY SURGICAL WITH REMOVAL OF A SINGLE LUNG SEGMENT 12/28/2024 11:28 AM EDT Pulmonary nodule Case Notes [employer] VA BRONCHOSCOPY RIGID/FLEXIBLE INCL FLUORO W/THERAPY ASPIRATION INITIAL 12/28/2024 11:28 AM EDT Pulmonary nodule Case Notes [employer] VA BRONCHOSCOPY INCL FLUROSCOPIC GUIDANCE W PLCMNT FIDUCIAL MARKER SGL/MULT 12/28/2024 11:28 AM EDT Pulmonary nodule Case Notes [employer] VA BRONCHOSCOPY RIGID/FLEXIBLE COMPUTER ASSISTED IMAGE GUIDED NAVIGATION 12/28/2024 11:28 AM EDT Pulmonary nodule Case Notes [employer] VA THORACOSCOPY W DX WEDGE RESECTION F/B ANATOMIC [...] 3. Right subcutaneous emphysema has resolved. Code 70817 -------- FINAL REPORT -------- Dictated By: Sacha Oquendo Dictated Date: 01/24/2025 09:26 ET Assigned Physician: Sacha Oquendo Reviewed and Electronically Signed By: Sacha Oquendo Signed Date: 01/24/2025 09:32 ET Workstation ID: [id number] Transcribed By: Self Edit Transcribed Date: 01/24/2025 [...] 3. Right subcutaneous emphysema has resolved. Code 36850 -------- FINAL REPORT -------- Dictated By: Sacha Oquendo Dictated Date: 01/24/2025 09:26 ET Assigned Physician: Sacha Oquendo Reviewed and Electronically Signed By: Sacha Oquendo Signed Date: 01/24/2025 09:32 ET Workstation ID: [id number] Transcribed By: Self Edit Transcribed Date: 01/24/2025 09:26 ET us Yamila Villareal NP IMG XR PROCEDURES Final Res ult * [...] Signed Date: 01/07/2025 06:32 ET Workstation ID: [id number] Transcribed By: Self Edit Transcribed Date: 01/07/2025 [...] Signed Date: 01/07/2025 06:32 ET Workstation ID: [id number] Transcribed By: Self Edit Transcribed Date: 01/07/2025 06:29 ET Shaila PETIT IMG XR PROCEDURES Final Resul t * (ABNORMAL) CBC auto differential (01/05/2025 6:36 AM EDT) Only the most recent of3 resultswithin the time period is included. WBC 7.8 4.8 - 10.8 K/mcL LAB HEMETOLOGY METHOD 01/05/2025 7:[address] [facility] RBC 4.40 3.80 - 4.80 M/mcL LAB HEMETOLOGY METHOD 01/05/2025 7:[address] [facility] Hemoglobin 13.1 11.5 - 16.0 g/dL LAB HEMETOLOGY METHOD 01/05/2025 7:12 AM [facility] Hematocrit 40.4 35.0 - 47.0 % LAB HEMETOLOGY METHOD 01/05/2025 7:12 AM [facility] MCV 91.0 79.0 - 98.0 FL LAB HEMETOLOGY METHOD 01/05/2025 7:12 AM [facility] MCH 29.5 27.0 - 32.0 pcg LAB HEMETOLOGY METHOD 01/05/2025 7:12 AM [facility] MCHC 32.4 32.0 - 37.0 g/dL LAB HEMETOLOGY METHOD 01/05/2025 7:12 AM [facility] RDW 13.3 11.0 - 15.0 % LAB HEMETOLOGY METHOD 01/05/2025 7:12 AM [facility] Platelets 343 130 - 400 K/mcL LAB HEMETOLOGY METHOD 01/05/2025 7:12 AM [facility] MPV 9.2 7.0 - 11.0 FL LAB HEMETOLOGY METHOD 01/05/2025 7:12 AM [facility] NRBC 0.0 <1.0 % LAB HEMETOLOGY METHOD 01/05/2025 7:12 AM [facility] NRBC Absolute 0.00 <0.10 K/mcL LAB HEMETOLOGY METHOD 01/05/2025 7:12 AM [facility] Neutrophils Relative 73.9 % LAB HEMETOLOGY METHOD 01/05/2025 7:12 AM [facility] Lymphocytes Relative 18.6 % LAB HEMETOLOGY METHOD 01/05/2025 7:12 AM [facility] Monocytes Relative 5.4 % LAB HEMETOLOGY METHOD 01/05/2025 7:12 AM [facility] Eosinophils Relative 1.3 % LAB HEMETOLOGY METHOD 01/05/2025 7:[address] [facility] Basophils Relative 0.3 % LAB HEMETOLOGY METHOD 01/05/2025 7:[address] [facility] Immature Granulocytes Relative 0.5 % LAB HEMETOLOGY METHOD 01/05/2025 7:[address] [facility] Neutrophils Absolute 5.76 1.50 - 7.00 K/mcL LAB HEMETOLOGY METHOD 01/05/2025 7:[address] [facility] Lymphocytes Absolute 1.45 1.00 - 5.00 K/mcL LAB HEMETOLOGY METHOD 01/05/2025 7:[address] [facility] Monocytes Absolute 0.42 0.20 - 1.00 K/mcL LAB HEMETOLOGY METHOD 01/05/2025 7:[address] [facility] Eosinophils Absolute 0.10 0.00 - 0.50 K/mcL LAB HEMETOLOGY METHOD 01/05/2025 7:[address] [facility] Basophils Absolute 0.02 0.00 - 0.20 K/mcL LAB HEMETOLOGY METHOD 01/05/2025 7:[address] [facility] Immature Granulocytes Absolute 0.04(H) 0.00 - 0.03 K/mcL LAB HEMETOLOGY METHOD 01/05/2025 7:[address] [facility] Blood Venous blood specimen / Unknown Venipuncture / Unknown 01/05/2025 6:36 AM EDT 01/05/2025 6:59 AM EDT us Amber PETIT LAB BLOOD ORDERABLES Final Result [facility] [address] [place] [address], * Basic metabolic panel (01/05/2025 6:36 AM EDT) Only the most recent of7 resultswithin the time period is included. Sodium 139 133 - 145 mmol/L LAB CHEMISTRY METHOD 01/05/2025 7:35 AM [facility] Potassium 4.2 3.5 - 5.5 mmol/L LAB CHEMISTRY METHOD 01/05/2025 7:35 AM [facility] Chloride 104 96 - 110 mmol/L LAB CHEMISTRY METHOD 01/05/2025 7:35 AM [facility] CO2 29 21 - 32 mmol/L LAB CHEMISTRY METHOD 01/05/2025 7:35 AM [facility] Anion Gap 6 3 - 11 LAB CHEMISTRY METHOD 01/05/2025 7:35 AM [facility] Glucose 89 70 - 100 mg/dL LAB CHEMISTRY METHOD 01/05/2025 7:35 AM [facility] BUN 16 5 - 25 mg/dL LAB CHEMISTRY METHOD 01/05/2025 7:35 AM [facility] Creatinine 0.68 0.50 - 1.10 mg/dL LAB CHEMISTRY METHOD 01/05/2025 7:35 AM [facility] eGFR 90 >=60 mL/min/1. 73m2 LAB CHEMISTRY METHOD 01/05/2025 7:35 AM [facility] Comment:Calculation based on the Chronic Kidney Disease Epidemiology Collaboration (CKD-EPI) equation refit without adjustment for race. BUN/Creatinine Ratio 23.5 LAB CHEMISTRY METHOD 01/05/2025 7:35 AM [facility] Calcium 9.2 8.5 - 10.5 mg/dL LAB CHEMISTRY METHOD 01/05/2025 7:35 AM [facility] Blood Venous blood specimen / Unknown Venipuncture / Unknown 01/05/2025 6:36 AM EDT 01/05/2025 6:59 AM EDT us Amber PETIT LAB BLOOD ORDERABLES Final Result [facility] [address] [place] [address], [place] [phone] * Lavender tube (01/03/2025 5:53 AM EDT) [facility] Extra Tube Hold for add-ons. 01/03/2025 8:[address] [facility] Comment:Auto resulted. Blood Venous blood specimen / Unknown Venipuncture / Unknown 01/03/2025 5:53 AM EDT 01/03/2025 6:19 AM EDT Dick Dos Santos MD LAB BLOOD ORDERABLES Fi nal Result Performing Organization Address City/[facility]/ZIP Co de Phone Number [facility] [address] [place] [address], [place] [phone] * Complete blood count (01/02/2025 6:04 AM EDT) Only the most recent of4 resultswithin the time period is included. [facility] WBC 8.5 4.8 - 10.8 K/mcL LAB HEMETOLOGY METHOD 01/02/2025 6:[address] [facility] RBC 4.40 3.80 - 4.80 M/mcL LAB HEMETOLOGY METHOD 01/02/2025 6:[address] [facility] Hemoglobin 12.8 11.5 - 16.0 g/dL LAB HEMETOLOGY METHOD 01/02/2025 6:[address] [facility] Hematocrit 39.5 35.0 - 47.0 % LAB HEMETOLOGY METHOD 01/02/2025 6:[address] [facility] MCV 90.4 79.0 - 98.0 FL LAB HEMETOLOGY METHOD 01/02/2025 6:[address] [facility] MCH 29.3 27.0 - 32.0 pcg LAB HEMETOLOGY METHOD 01/02/2025 6:[address] [facility] MCHC 32.4 32.0 - 37.0 g/dL LAB HEMETOLOGY METHOD 01/02/2025 6:[address] [facility] RDW 13.2 11.0 - 15.0 % LAB HEMETOLOGY METHOD 01/02/2025 6:[address] [facility] Platelets 323 130 - 400 K/mcL LAB HEMETOLOGY METHOD 01/02/2025 6:[address] [facility] MPV 9.6 7.0 - 11.0 FL LAB HEMETOLOGY METHOD 01/02/2025 6:[address] [facility] NRBC 0.0 <1.0 % LAB HEMETOLOGY METHOD 01/02/2025 6:[address] [facility] NRBC Absolute 0.00 <0.10 K/mcL LAB HEMETOLOGY METHOD 01/02/2025 6:[address] [facility] Blood Venous blood specimen / Unknown Venipuncture / Unknown 01/02/2025 6:04 AM EDT 01/02/2025 6:14 AM EDT Yamila Villareal NP LAB BLOOD ORDERABLES Final Result [facility] [address] [place] [address], * Phosphorus (01/02/2025 6:04 AM EDT) Only the most recent of3 resultswithin the time period is included. Phosphorus 4.1 2.5 - 4.5 mg/dL LAB CHEMISTRY METHOD 01/02/2025 7:[address] [facility] Blood Venous blood specimen / Unknown Venipuncture / Unknown 01/02/2025 6:04 AM EDT 01/02/2025 6:13 AM EDT Yamila Villareal ESCALATOR OPERATOR LAB BLOOD ORDERABLES Final Result Performing Organization Address City/[facility]/ZIP Co de Phone Number [facility] [address] [place] [address], [place] [phone] * Magnesium (01/02/2025 6:04 AM EDT) Only the most recent of3 resultswithin the time period is included. [facility] Signature Magnesium 2.0 1.9 - 2.6 mg/dL LAB CHEMISTRY METHOD 01/02/2025 7:[address] [facility] Blood Venous blood specimen / Unknown Venipuncture / Unknown 01/02/2025 6:04 AM EDT 01/02/2025 6:13 AM EDT Yamila Villareal NP LAB BLOOD ORDERABLES Final Result Performing Organization Address [facility] Co de Phone Number [facility] [address] [place] [address], [place] [phone] * ECG-Annotated (01/02/2025) Provider Onbase MD ECG ORDERABLES Final Result * IR Pleural Drain Insert Cath w Image Guidance Right (01/01/2025 5:38 PM EDT) Anatomical Region Laterality Modality Right Interventional R adiology 01/01/2025 5:50 PM EDT Impressions 01/01/2025 5:53 PM EDT 14 Armenian pigtail catheter placed into right apical pneumothorax. -------- FINAL REPORT -------- Dictated By: Claudia Geller Dictated Date: 01/01/2025 17:50 ET Assigned Physician: Claudia Geller Reviewed and Electronically Signed By: Claudia Geller Signed Date: 01/01/2025 17:53 ET Workstation ID: [id number] Transcribed By: Self Edit Transcribed Date: 01/01/2025 [...] the needle. Tract dilated up to 16 Armenian and placement of a 14 Armenian pigtail catheter. Wire and stiffener removed. Pigtail [...] under fluoroscopy into the pneumothorax via the [id number] intercostal space along the anterior axillary line. Short Amplatz wireadvanced through the needle. Tract dilated up to 16 Armenian and placementof a 14 Armenian pigtail catheter. Wire and stiffener removed. Pigtailcatheter formed and locked in place. Pneumothorax evacuated through thecatheter which was subsequently attached to a Pleur-evac system under wallsuction. Dressing applied. Findings: Fluoroscopic imaging demonstrates pigtail catheter placed withinright apical pneumothorax. Total patient dose (air kerma): 4 mGy IMPRESSION: 14 Armenian pigtail catheter placed into right apical pneumothorax. -------- FINAL REPORT -------- Dictated By: Claudia Geller Dictated Date: 01/01/2025 17:50 ET Assigned Physician: Claudia Geller Reviewed and Electronically Signed By: Claudia Geller Signed Date: 01/01/2025 17:53 ET Workstation ID: [id number] Transcribed By: Self Edit Transcribed Date: 01/01/2025 17:50 ET us Yamila Villareal ESCALATOR OPERATOR IMG IR PROCEDURES Final Res ult * [...] Signed Date: 01/01/2025 13:59 ET Workstation ID: [id number] Transcribed By: Self Edit Transcribed Date: 01/01/2025 [...] Signed Date: 01/01/2025 13:59 ET Workstation ID: [id number] Transcribed By: Self Edit Transcribed Date: 01/01/2025 13:52 ET Shahriar Forrester MD IM CT PROCEDURES Final R esult * APTT (01/01/2025 1:21 PM EDT) Only the most recent of2 resultswithin the time period is included. aPTT 30.3 24.1 - 39.3 sec LAB COAGULATION METHOD 01/01/2025 2:[address] [facility] Blood Venous blood specimen / Unknown Venipuncture / Unknown 01/01/2025 1:21 PM EDT 01/01/2025 1:31 PM EDT Shahriar Forrester MD LAB BLOOD ORDERABLES Jen l Result Performing Organization Address [facility] de Phone Number [facility] [address] [place] [address], [place] [phone] * Protime-INR (01/01/2025 1:21 PM EDT) Only the most recent of2 resultswithin the time period is included. [facility] Protime 11.4 10.6 - 13.9 sec LAB COAGULATION METHOD 01/01/2025 2:[address] [facility] INR 0.9 LAB COAGULATION METHOD 01/01/2025 2:[address] [facility] Blood Venous blood specimen / Unknown Venipuncture / Unknown 01/01/2025 1:21 PM EDT 01/01/2025 1:31 PM EDT Shahriar Forrester MD LAB BLOOD ORDERABLES Jen l Result Performing Organization Address [facility]/ZIP Co de Phone Number [facility] [address] [place] [address], [place] [phone] * Comprehensive Metabolic Panel (CMP) (01/01/2025 1:21 PM EDT) [facility] Sodium 140 133 - 145 mmol/L LAB CHEMISTRY METHOD 01/01/2025 1:[address] [facility] Potassium 3.9 3.5 - 5.5 mmol/L LAB CHEMISTRY METHOD 01/01/2025 1:[address] [facility] Chloride 104 96 - 110 mmol/L LAB CHEMISTRY METHOD 01/01/2025 1:54 PM [facility] CO2 29 21 - 32 mmol/L LAB CHEMISTRY METHOD 01/01/2025 1:54 PM [facility] Anion Gap 7 3 - 11 LAB CHEMISTRY METHOD 01/01/2025 1:54 PM [facility] Glucose 92 70 - 100 mg/dL LAB CHEMISTRY METHOD 01/01/2025 1:54 PM [facility] BUN 16 5 - 25 mg/dL LAB CHEMISTRY METHOD 01/01/2025 1:54 PM [facility] Creatinine 0.70 0.50 - 1.10 mg/dL LAB CHEMISTRY METHOD 01/01/2025 1:54 PM [facility] eGFR 90 >=60 mL/min/1. 73m2 LAB CHEMISTRY METHOD 01/01/2025 1:54 PM [facility] Comment:Calculation based on the Chronic Kidney Disease Epidemiology Collaboration (CKD-EPI) equation refit without adjustment for race. BUN/Creatinine Ratio 22.9 LAB CHEMISTRY METHOD 01/01/2025 1:54 PM [facility] Calcium 9.9 8.5 - 10.5 mg/dL LAB CHEMISTRY METHOD 01/01/2025 1:54 PM [facility] AST (SGOT) 20 10 - 42 unit/L LAB CHEMISTRY METHOD 01/01/2025 1:54 PM [facility] ALT (SGPT) 21 10 - 60 unit/L LAB CHEMISTRY METHOD 01/01/2025 1:54 PM [facility] Alkaline Phosphatase 81 42 - 121 unit/L LAB CHEMISTRY METHOD 01/01/2025 1:54 PM [facility] Total Protein 6.5 6.0 - 8.0 g/dL LAB CHEMISTRY METHOD 01/01/2025 1:54 PM EDT [facility] Albumin 3.8 3.2 - 5.0 g/dL LAB CHEMISTRY METHOD 01/01/2025 1:[address] [facility] Total Bilirubin 0.7 0.0 - 1.4 mg/dL LAB CHEMISTRY METHOD 01/01/2025 1:[address] [facility] Blood Venous blood specimen / Unknown Venipuncture / Unknown 01/01/2025 1:21 PM EDT 01/01/2025 1:31 PM EDT Shahriar Forrester MD LAB BLOOD ORDERABLES Jen l Result Performing Organization Address [facility]/ZIP Co de Phone Number [facility] [address] [place] [address], [place] [phone] * 12-Lead ECG (01/01/2025 1:11 PM EDT) Ventricular Rate ECG 90 BPM [facility] Atrial Rate 90 BPM [facility] P-R Interval 142 ms GEM[facility] QRS Duration 74 ms GEM[facility] Q-T Interval 352 ms GEMUSE QTc 430 ms GEMUSE P Wave [place] 30 degrees GEMUSE R [place] 3 degrees GEMUSE T [place] 26 degrees GEMUSE ECG Interpretation Normal sinus rhythm Nonspecific ST and T wave abnormality Abnormal ECG When compared with ECG of 23-DEC-2024 09:24, No significant change was found Confirmed by Sudeep WINTERS YUFENG ([id number]) on 01/01/2025 4:41:47 PM [facility] 01/01/2025 1:11 PM EDT 01/01/2025 4:41 PM EDT Shahriar Forrester MD ECG ORDERABLES Final Res ult Performing Organization Address [facility]/ZIP Co de Phone Number [facility] * Culture tissue with gram stain (12/28/2024 1:16 PM EDT) Culture, Tissue No growth aerobically and anaerobically at 5 days. 01/02/2025 9:[address] [facility] Gram Stain Result No polymorphonuclear leukocytes, No epithelial cells, and No organisms noted 01/02/2025 9:[address] [facility] Tissue Structure of upper lobe of right lung / Unknown 12/28/2024 1:16 PM EDT 12/28/2024 1:27 PM EDT us Jacquelyn Goldstein MD LAB MICROBIOLOGY - GENERAL ORDER KASEY Final Result Performing Organization Address [facility] Co de Phone Number [facility] [address] [place] [address], [place] [phone] * Tissue grind, digestion and deconvolution (12/28/2024 1:16 PM EDT) Tissue Grind/Digestio n/Decon Performed 12/29/2024 3:05 PM EDT [facility] Tissue Structure of upper lobe of right lung / Unknown 12/28/2024 1:16 PM EDT 12/28/2024 1:28 PM EDT Narrative [facility] - 12/29/2024 3:05 PM EDT Performed at: [facility] [id number] Body Die Maker: Leslie Solano MD, Phone: [phone] us Jacquelyn Goldstein MD LAB PATHOLOGY ORDERABLES Final R esult Performing Organization Address City/[facility]/ZIP Co de Phone Number [facility] * Acid fast bacilli stain (12/28/2024 1:16 PM EDT) AFB Stain Result No Acid fast bacilli seen on direct smear (Fuchsin method, 1000x) No Acid Fast Bacilli seen on direct smear 12/28/2024 7:[address] [facility] Tissue Structure of upper lobe of right lung / Unknown 12/28/2024 1:16 PM EDT 12/28/2024 1:28 PM EDT us Laki Rousou MD LAB MICROBIOLOGY - GENERAL ORDER KASEY Final Result Performing Organization Address City/[facility]/ZIP Co de Phone Number [facility] [address] [place] [address], [place] [phone] * Culture fungal, other (12/28/2024 1:16 PM EDT) Culture, Fungus Negative for Fungus after 4 Weeks 01/26/2025 1:[address] [facility] Tissue Structure of upper lobe of right lung / Unknown 12/28/2024 1:16 PM EDT 12/28/2024 1:28 PM EDT Jacquelyn Goldstein MD LAB MICROBIOLOGY - GENERAL ORDER KASEY Final Result Performing Organization Address [facility] Co de Phone Number [facility] [address] [place] [address], [place] [phone] * Tissue exam (12/28/2024 1:15 PM EDT) [...] negative for carcinoma (0/8). 2:07 PM EDT [facility] ([facility]) [facility] Synoptic Checklist LUNG LUNG - All [...] Additional Findings: Emphysema 5 2:07 PM EDT [facility] ([facility]) [facility] Gross Description A. Lung, Right Upper [...] x 0.4 x 0.3 cm focally anthracotic, sanchez-omsqueda portion of froylan tissue with minimally attached [...] cm and 1.0 cm in greatest diameter. Commercial Development Manager sections are submitted in eleven cassettes. 1: [...] microscopically), four pieces KR 2:[address] [facility] Intraoperative Consultation A. Lung, Right Upper Lobe, : Non-small cell carcinoma. Margin is negative for tumor. -SL 2:[address] [facility] Disclaimer NOTE: The immunohistochemical tests and in situ hybridization tests were developed and their performance characteristics were determined by [facility]. They have not been cleared [...] fixed and paraffin embedded. 2:[address] [facility] Tissue Structure of upper lobe [...] 3:07 PM EDT 12/28/2024 4:46 PM EDT Jacquelyn Goldstein MD LAB PATHOLOGY ORDERABLES Final R esult [facility] ([facility]) [facility] [address] [place] [address], [place] [phone] * TH AN ENDOTRACHEAL(NO CHARGE) (12/28/2024 12:41 PM EDT) Narrative Amado Moreno SRNA - 12/28/2024 12:41 PM EDT MG [...] mask + OA or adjuvant +/- NMBA Guy Eugene MD ANESTHESIA ORDERABLES Edited R [...] mask + OA or adjuvant +/- NMBA Guy Eugene MD ANESTHESIA ORDERABLES Edited R [...] to verify the correct patient, procedure, equipment, customer support analyst and site/side marked as required. Preparation: Patient was prepped and draped in the usual sterile fashion. Indications: hemodynamic monitoring Location: left radial Sedation: Patient sedated: yes Sedatives: see MAR for details Analgesia: see MAR for details [...] Units (12/28/2024 11:10 AM EDT) Product Code [id number] [facility] Number [id number] 12/29/19 25 4:[facility] Crossmatch Compatible 12/28/2024 12:18 [facility] Dispense Status Released From Crossmatch 12/28/2024 4:34 PM [facility] Unit ABO Rh OPOS 12/28/2024 4:34 PM [facility] Unit Expiration Date Time [id number] 12/28/2024 4:34 PM [facility] Unit Blood Type 5100 12/28/2024 4:34 [facility] Product Code [id number] 12/28/2024 4:[address] [facility] Unit Number [id number] 12/29/19 4:[address] [facility] Crossmatch Compatible 12/28/2024 12:[address] [facility] Dispense Status Released From Crossmatch 12/28/2024 4:[address] [facility] Unit ABO Rh OPOS 12/28/2024 4:[address] [facility] Unit Expiration Date Time [id number] 12/28/2024 4:[address] [facility] Unit Blood Type 5100 12/28/2024 4:[address] [facility] Blood Venous blood specimen / Unknown 12/28/2024 11:10 AM EDT 12/23/2024 9:32 AM EDT Jacquelyn Goldstein MD BLOOD BANK PRODUCT ORDERABLES Fi nal Result [facility] [address] [place] [address], [place] [phone] * Pulmonary function testing: Carbon Monoxide Diffusing Capacity, Spirometry with Bronchodilator, Plethysmography (12/26/2024 9:28 AM EDT) Narrative Yolande Sinclair MD - 12/26/2024 7:36 PM EDT Table formatting from the original result was not included. Images from the original result were not included. [facility] [address] [place] [address] Pulmonary Functions Report Date of service: 12/26/24 [...] changes Yolande Sinclair MD us Yamila Villareal ESCALATOR OPERATOR PFT ORDERABLES Final Resul t * ECG 12 lead - Procedural (No Charge) (12/23/2024 9:24 AM EDT) Ventricular Rate ECG 62 BPM GEMUSE Atrial Rate 62 BPM GEMUSE P-R Interval 134 ms GEMUSE QRS Duration 76 ms GEMUSE Q-T Interval 402 ms GEMUSE QTc 408 ms GEMUSE P Wave [place] 30 degrees GEMUSE R [place] 26 degrees GEMUSE T [place] 47 degrees GEMUSE ECG Interpretation Normal sinus rhythm Low voltage QRS Borderline ECG No previous ECGs available Confirmed by DEENA URIBE ([id number]) on 12/23/2024 11:08:48 PM GEM[facility] 12/23/2024 9:24 AM EDT 12/23/2024 11:08 PM EDT us Jacquelyn Goldstein MD ECG ORDERABLES Final Result GEMUSE * Type and screen (12/23/2024 9:10 AM EDT) ABO Group O 12/23/2024 11:[address] [facility] Rh Type Positive 12/23/2024 11:[address] [facility] Antibody Screen Negative 12/23/2024 11:[address] [facility] Blood Venous blood specimen / Unknown Venipuncture / Unknown 12/23/2024 9:10 AM EDT 12/23/2024 9:32 AM EDT us Jacquelyn Goldstein MD LAB BLOOD BANK TEST ORDERABLES F inal Result [facility]) [facility] [address] [place] [address], [place] [phone] * CT Lung Screening (11/29/2024 10:32 AM [...] component -------- FINAL REPORT -------- Dictated By: Willain Colon Dictated Date: 12/02/2024 10:20 ET Assigned Physician: Willian Colon Reviewed and Electronically Signed By: Willian Colon Signed Date: 12/02/2024 10:33 ET Workstation ID: [id number] Transcribed By: Self Edit Transcribed Date: 12/02/2024 10:20 ET Narrative 12/02/2024 10:33 AM EDT EXAMINATION: CT CHEST WITHOUT CONTRAST LUNG CANCER SCREENING, LOW DOSE CLINICAL INFORMATION: Lung cancer screening. Current smoker. COMPARISON: None TECHNIQUE: Multidetector CT. Examination of the chest. Examination of the chest without IV contrast. Reformatting in the coronal and sagittal planes. 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
== END 2025-01-31 11:04 | disposition home or self-care (01) ==
LOC: HO.HMCC 09:54
PROVIDERS: PCP Internal Medicine; Visit Provider Internal Medicine
DX: K62.5 Hemorrhage of anus and rectum (principal); I10 Essential (primary) hypertension; C34.90 Malignant neoplasm of unspecified part of unspecified bronchus or lung

== ENCOUNTER → 2025-01-31 09:53 | Outpatient (BNVA) | payer MEDICARE, OTHER, SELFPAY | PROVIDERS: PCP Internal Medicine; Visit Provider Internal Medicine | DX: I10 Essential (primary) hypertension (principal); K62.5 Hemorrhage of anus and rectum; C34.90 Malignant neoplasm of unspecified part of unspecified bronchus or lung; Z90.2 Acquired absence of lung [part of] | CPT/HCPCS: 96127; 99212 ==

== ENCOUNTER 2025-03-06 10:33 | Outpatient (REF) | payer MEDICARE, OTHER, SELFPAY ==
--- NOTE | ~2025-03-06 | MM_ITS ---
EXAMINATION: MM SCREENING DIGITAL BREAST TOMOSYNTHESIS, BILATERAL CLINICAL INFORMATION: Screening. Asymptomatic. History of excisional biopsy of the left breast in 1966. COMPARISON: Comparison made to multiple prior, most recent January 19, 2024, and most remote December 29, 2014. TECHNIQUE: Digital breast tomosynthesis is performed in mediolateral oblique and craniocaudal views along with computer-aided detection (CAD). Synthesized 2D images are generated from the tomosynthesis. FINDINGS: BREAST COMPOSITION: There are scattered areas of fibroglandular density. RIGHT BREAST: No significant masses, suspicious calcifications or other abnormalities are seen. LEFT BREAST: History of excisional biopsy. No significant masses, suspicious calcifications or other abnormalities are seen. MM/MM tomosynthesis screening BI IMPRESSION: BILATERAL BREASTS: Benign, no mammographic evidence of malignancy. Normal interval follow-up is recommended in 12 months. ASSESSMENT: BI-RADS: Category 2: Benign RECOMMENDATION: Routine annual mammography screening. FOLLOW-UP: 1 year F/U This examination should not preclude the clinical evaluation of a suspicious palpable abnormality. This patient's information was entered into a reminder system with a target due date for their next mammogram. Electronically signed by: Alesha Boyce MD 03/06/2025 08:29 PM [facility]
== END 2025-03-06 10:34 | disposition home or self-care (01) ==
LOC: HO.MAMMO 10:33
PROVIDERS: PCP Internal Medicine; Visit Provider Internal Medicine
DX: Z12.31 Encounter for screening mammogram for malignant neoplasm of breast (principal)
CPT/HCPCS: 77063; 77067

== ENCOUNTER → 2025-03-06 10:38 | Outpatient (BNV) | payer MEDICARE, OTHER, SELFPAY | PROVIDERS: PCP Internal Medicine; Visit Provider Radiology Body Imaging | DX: Z12.31 Encounter for screening mammogram for malignant neoplasm of breast (principal) | CPT/HCPCS: 77063; 77067 ==